=== PATIENT | female | born 1955 | race African-American/Black ===

== ENCOUNTER 2024-08-03 09:43 | Inpatient (IN) | payer OTHER ==
[~2024-08-03] VITALS: Ht 172.7 cm; Wt 100.0 kg
[~2024-08-03 09:43] MED LIST: CLOP75TA70 PO; DOXY100C4 PO; GABA-1250 PO; INSU300I5 SC; METF-929 PO; OXYC325T14 PO; PANT40TA57 PO; [UNRECOGNIZED DRUG - CODE] SC
--- NOTE | 2024-08-03 10:07 | ED.PDOC ---
Back pain HPI Chief Complaint: Lower Extremity Comments bilateral feet pain for 6 months. 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 Family History Family History: Reviewed,noncontributory to illness, No family hx of Cancer, No family hx of DM, No family hx of Heart jocelyn, No family hx of HTN, No family hx ofKidney jocelyn, No family hx of Liver jocelyn, No family hx of Lung jocelyn, No family hx of Stroke Social History Smoker: Non-Smoker Alcohol: Denies ETOH Use Drugs: Denies Drug Use Constitutional: denies: chills, diaphoresis, fatigue, fever, malaise, sweats, weakness, others EENTM: denies: blurred vision, double vision, ear bleeding, ear discharge, ear drainage, ear pain, ear ringing, eye pain, eye redness, hearing loss, mouth pain, mouth swelling, nasal discharge, nose bleeding, nose congestion, nose pain, photophobia, tearing, throat pain, throat swelling, voice changes, others Respiratory: denies: cough, hemoptysis, orthopnea, SOB at rest, shortness of breath, SOB with excertion, stridor, wheezing, others Cardiovascular: denies: chest pain, dizzy spells, diaphoresis, Dyspnea on exertion, edema, irregular heart beat, left arm pain, lightheadedness, palpitations, PND, syncope, others Gastrointestinal: denies: abdomen distended, abdominal pain, blood streaked bowels, constipated, diarrhea, dysphagia, difficulty swallowing, hematemesis, melena, nausea, poor appetite, poor fluid intake, rectal bleeding, rectal pain, vomiting, others Genitourinary: denies: abnormal vagina bleeding, burning, dyspareunia, dysuria, flank pain, frequency, hematuria, incontinence, pain, , vagina discharge, urgency, others Neurological: denies: dizziness, fainting, headache, left sided numbness, left sided weakness, numbness, paresthesia, pre-existing deficit, right sided numbness, right sided weakness, seizure, speech problems, tingling, tremors, weakness, others Musculoskeletal: reports: joint pain; denies: back pain, gout, joint swelling, muscle pain, muscle stiffness, neck pain, others Integumetry: reports: others (left 2nd and 4th toes dry gangrene. right 1,2 toes dry gangrene); denies: bruises, change in color, change in hair/nails, dryness, laceration, lesions, lumps, rash, wounds Allergic/Immunocompromised: denies: Difficulty Healing, Frequent Infections, Hives, Itching, others Hematologic/Lymphatic: denies: anemia, blood clots, easy bleeding, easy bruising, swollen glands, others Endocrine: denies: excessive hunger, excessive sweating, excessive thirst, excessive urination, flushing, intolerance to cold, intolerance to heat, unexplained weight gain, unexplained weight loss, others Psychiatric: denies: anxiety, bipolar disorder, depression, hopeless, panic disorder, schizophrenia, sleepless, suicidal, others All Other Systems: Reviewed and Negative Physical Exam General Appearance: No Apparent Distress, Normal HEENT: Normal ENT Inspection, Pharynx Normal, TMs Normal Neck: Full Range of Motion, Non-Tender, Normal, Normal Inspection Respiratory: Chest Non-Tender, Lungs Clear, No Accessory Muscle Use, No Respiratory Distress, Normal Breath Sounds Cardiovascular: No Edema, No JVD, No Murmur, No Gallop, Normal Peripheral Pulses, Regular Rate/Rhythm, Other (weaknly palpable dp pulses bilaterally) Breast Exam: Deferred Gastrointestinal: No Organomegaly, Non Tender, No Pulsatile Mass, Normal Bowel Sounds, Soft Genitalia: Deferred Pelvic: Deferred Rectal: Deferred Extremities: No calf tenderness, Normal range of motion, No pedal edema, Tender, Other (left 2nd and 4th toe, right 1st, 2nd toes with dry gangrene) Musculoskeletal : Apperance: Normal Neurologic: 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 Was a procedure done?: No Back Pain Differential Dx Differential Diagnosis: Musculoskeletal Pain, Strain, Other (PAD, dry gangrene) X-Ray, Labs, Meds, VS Vital Signs Date Time Temp Pulse Resp B/P (MAP) Pulse Ox O2 Delivery O2 Flow Rate FiO2 08/03/24 09:43 98.6 114 16 146/78 (100) 100 98.6 Lab Test 08/03/24 11:27 08/03/24 09:52 Range/Units White Blood Count 13.3 H 4.4-10.8 10^3/uL Red Blood Count 4.05 4.0-5.20 10^6/uL Hemoglobin 10.4 L 12.2-16.2 g/dL Hematocrit 32.0 L 36.0-46.0 % Mean Corpuscular Volume 79.0 L 80.0-100.0 fL Mean Corpuscular Hemoglobin 25.8 L 28.0-32.0 pg Mean Corpuscular Hemoglobin Concent 32.6 32.0-36.0 g/dL Red Cell Distribution Width 14.4 H 11.8-14.3 % Platelet Count 676 H 140-450 10^3/uL Mean Platelet Volume 7.4 6.9-10.8 fL Neutrophils (%) (Auto) 87.0 H 37.0-80.0 % Lymphocytes (%) (Auto) 5.4 L 10.0-50.0 % Monocytes (%) (Auto) 6.8 0.0-12.0 % Eosinophils (%) (Auto) 0.4 0.0-7.0 % Basophils (%) (Auto) 0.4 0.0-2.0 % Neutrophils # (Auto) 11.6 H 1.6-8.6 10 ^3/uL Lymphocytes # (Auto) 0.7 0.4-5.4 10 ^3/uL Monocytes # (Auto) 0.9 0-1.3 10 ^3/uL Eosinophils # (Auto) 0.1 0-0.8 10 ^3/uL Basophils # (Auto) 0.1 0-0.2 10 ^3/uL Nucleated Red Blood Cells 0.0 % Sodium Level 137 136-145 mmol/L Potassium Level 3.2 L 3.5-5.1 mmol/L Chloride Level 101 98-107 mmol/L Carbon Dioxide Level 22 20-31 mmol/L Anion Gap 14 5-15 Blood Urea Nitrogen 8 L 9-23 mg/dL Creatinine 0.73 0.550-1.02 mg/dL Glomerular Filtration Rate Calc 89 >90 mL/min BUN/Creatinine Ratio 11.0 10.0-20.0 Serum Glucose 148 H 74-106 mg/dL Calcium Level 10.2 8.7-10.4 mg/dL POC Glucose 145 H 70-106 mg/dl Current Medications Medications (Trade) Dose Ordered Sig/Linda Route Start Time Stop Time Status Last Admin Acetaminophen/ Hydrocodone Bitart (Mcdonald 5/325MG Tab) 1 tab ONCE ONCE PO 08/03/24 10:00 08/03/24 10:03 DC 08/03/24 10:23 Time of 1ST Reevaluation: 13:25 Reevaluation 1ST: Improved Patient Education/Counseling: Diagnosis, Treatment, Prognosis, Need For Follow Up Family Education/Counseling: No Family Present Departure 1 Departure Time of Disposition: 13:26 Impression: Primary Impression: Gangrene Additional Impression: PAD (peripheral artery disease) Disposition: ADMITTED INPATIENT Admit to: Tele Condition: Stable Discharged With: Self Critical Care Note Critical Care Time?: Yes (45 min-critical care time only) Critical care comment: Due to concerns for patients condition deteriorating, the care required my highest level of attention and readiness to intervene. I assessed the patient, reviewed the medical records, ordered the appropriate tests and treatments, then reassessed for results and responsiveness. I communicated with medical personnel and consultants and formulated a plan of care. Total critical care time excludes any procedures Stability Stability form required: JOSEFINA Middleton MD Aug 03, 2024 10:07
[2024-08-03] MEDS: HYDROcodone-ACET 5/325MG TAB PO ONE (10:23)
--- NOTE | 2024-08-03 11:00 | DVH ---
CLINICAL INDICATION: pad TECHNIQUE: XY R FOOT 3 VIEW XRAY, XY L FOOT 3 VIEW XRAY Comparison: None FINDINGS/IMPRESSION: : There is no evidence of acute fracture or dislocation. Soft tissues are unremarkable.
[2024-08-03 11:36] LABS: Hemoglobin 10.4 g/dL (12.2-16.2); Lymphocytes # (auto) 0.7 10 ^3/uL (0.4-5.4); Neutrophils # (auto) 11.6 10 ^3/uL (1.6-8.6); White Blood Cell 13.3 10^3/uL (4.4-10.8)
[2024-08-03 11:37] LABS: Basophils # (auto) 0.1 10 ^3/uL (0-0.2); Basophils % (auto) 0.4 % (0.0-2.0); Eosinophils # (auto) 0.1 10 ^3/uL (0-0.8); Eosinophils % (auto) 0.4 % (0.0-7.0); Lymphocytes % (auto) 5.4 % (10.0-50.0); Mean Corpuscular Hemoglobin 25.8 pg (28.0-32.0); Mean Corpuscular Hgb Conc. 32.6 g/dL (32.0-36.0); Monocytes # (auto) 0.9 10 ^3/uL (0-1.3); Monocytes % (auto) 6.8 % (0.0-12.0); Platelet Count (auto) 676 10^3/uL (140-450); Red Blood Cells 4.05 10^6/uL (4.0-5.20); Red Cell Distribution Width 14.4 % (11.8-14.3)
--- NOTE | 2024-08-03 11:50 | DVH ---
Bilateral Lower Extremity Arterial Duplex Clinical History: pad Comparison: None Technique: Duplex Doppler evaluation including color Doppler and spectral/pulsed waveform analysis of the lower extremity arteries was performed. Findings: RIGHT: Peak systolic velocities are as follows: CODING SUPPORT SPECIALIST 163 cm/s Deep femoral 151 cm/s SFA proximal 0 cm/s SFA mid-portion 0 cm/s SFA distal 0 cm/s Popliteal 30 cm/s Posterior tibial 30 cm/s Anterior tibial 0 cm/s Peroneal nv cm/s Dorsalis pedis 0 cm/s The waveforms are monophasic with diastolic flow. LEFT: Peak systolic velocities are as follows: CODING SUPPORT SPECIALIST 160 cm/s Deep femoral 112 cm/s SFA proximal 119 cm/s SFA mid-portion 91 cm/s SFA distal 0 cm/s Popliteal 24 cm/s Posterior tibial 0 cm/s Anterior tibial 28 cm/s Peroneal nv cm/s Dorsalis pedis 28 cm/s The waveforms are monophasic with diastolic flow. IMPRESSION: 20-49% stenosis of bilateral common femoral arteries and right deep femoral artery based on peak syst olic velocity criteria. Nonvisualization of flow in the right superficial femoral artery, posterior tibial artery and dorsali s pedis. Nonvisualization of flow in the left distal superficial femoral artery. Bilateral monophasic waveforms suggestive of underlying peripheral arterial disease. REFERENCE VALUES, [facility] ([facility]) vascular Imaging Lab Criteria: Peak systolic velocity ranges (in cm/sec) are as follows: <150 cm/s - <20 % stenosis 150-200 cm/s - 20-49% stenosis 200-300 cm/s - 50-75% stenosis >300 cm/s -> 75% stenosis
[2024-08-03 11:52] LABS: Anion Gap 14 (5-15); Carbon Dioxide 22 mmol/L (20-31); Chloride 101 mmol/L (98-107); Sodium 137 mmol/L (136-145)
[2024-08-03 11:53] LABS: Calcium 10.2 mg/dL (8.7-10.4)
[2024-08-03 12:02] LABS: Blood Urea Nitrogen 8 mg/dL (9-23); Glucose 148 mg/dL (74-106); Potassium 3.2 mmol/L (3.5-5.1)
--- NOTE | 2024-08-03 14:00 | DVHCONRES ---
Date Seen: Aug 03, 2024 Resident Creating Document: HOWIE SOARES Jr., MD Referring Physician Michela Reason for Consultation Severe rest pain bilaterally History of Present Illness 69-year-old female who is well known to me. She has diabetes, hypertension, gastroesophageal reflux disease, and severe peripheral vascular disease. She has had multiple endovascular procedures of bilateral lower extremities most recently last week for an attempted we cannulization of a right occluded SFA stent. Unfortunately this was unsuccessful. She also has a left SFA stent which is occluded. She is presenting with severe rest pain and dry gangrene of the 1st and 2nd toe on the right side and ischemic changes of her distal toes in the left side. She has dependent edema which she has developed because of rest pain. 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 With the plan on performing a bypass of the right leg from a fem to above knee popliteal bypass on Thursday. Patient will need cardiac clearance prior to procedure for Thursday. No current fevers or chills. Past Medical History Hypertension, diabetes, gastroesophageal reflux disease, severe peripheral vascular disease, Past Surgical History Multiple endovascular procedures of bilateral lower extremities including SFA angioplasty and stenting bilaterally. Also has had a finger amputation as well. Social History Former smoker Allergies: Coded Allergies: NO KNOWN ALLERGIES (Unverified , 08/03/24) Current Medications Please see medical reconciliation Review of Systems All systems reviewed otherwise negative other than what is in the HPI which was positive. Vital Signs Vital Signs Date Time Temp Pulse Resp B/P (MAP) Pulse Ox O2 Delivery O2 Flow Rate FiO2 08/03/24 09:43 98.6 114 16 146/78 (100) 100 98.6 Physical Exam Head eyes ears nose and throat exam eyes are nonicteric conjunctiva is pink neck was supple no JVD no lymphadenopathy no carotid bruits lungs are clear to auscultation heart was regular rate and rhythm abdomen is soft nontender with no pulsatile abdominal masses or bruits lower extremities she has palpable femoral pulses bilaterally nonpalpable pedal pulses bilaterally she has dry gangrene of the 1st and 2nd toe on the right side and ischemic changes to the distal toes on the left side. Neurologically she has a history of neuropathy and decreased sensation of her feet. She has 1 to 2+ pitting edema of both lower extremities. Labs/Diagnostic Data Labs Test 08/03/24 11:27 08/03/24 09:52 Range/Units White Blood Count 13.3 H 4.4-10.8 10^3/uL Red Blood Count 4.05 4.0-5.20 10^6/uL Hemoglobin 10.4 L 12.2-16.2 g/dL Hematocrit 32.0 L 36.0-46.0 % Mean Corpuscular Volume 79.0 L 80.0-100.0 fL Mean Corpuscular Hemoglobin 25.8 L 28.0-32.0 pg Mean Corpuscular Hemoglobin Concent 32.6 32.0-36.0 g/dL Red Cell Distribution Width 14.4 H 11.8-14.3 % Platelet Count 676 H 140-450 10^3/uL Mean Platelet Volume 7.4 6.9-10.8 fL Neutrophils (%) (Auto) 87.0 H 37.0-80.0 % Lymphocytes (%) (Auto) 5.4 L 10.0-50.0 % Monocytes (%) (Auto) 6.8 0.0-12.0 % Eosinophils (%) (Auto) 0.4 0.0-7.0 % Basophils (%) (Auto) 0.4 0.0-2.0 % Neutrophils # (Auto) 11.6 H 1.6-8.6 10 ^3/uL Lymphocytes # (Auto) 0.7 0.4-5.4 10 ^3/uL Monocytes # (Auto) 0.9 0-1.3 10 ^3/uL Eosinophils # (Auto) 0.1 0-0.8 10 ^3/uL Basophils # (Auto) 0.1 0-0.2 10 ^3/uL Nucleated Red Blood Cells 0.0 % Sodium Level 137 136-145 mmol/L Potassium Level 3.2 L 3.5-5.1 mmol/L Chloride Level 101 98-107 mmol/L Carbon Dioxide Level 22 20-31 mmol/L Anion Gap 14 5-15 Blood Urea Nitrogen 8 L 9-23 mg/dL Creatinine 0.73 0.550-1.02 mg/dL Glomerular Filtration Rate Calc 89 >90 mL/min BUN/Creatinine Ratio 11.0 10.0-20.0 Serum Glucose 148 H 74-106 mg/dL Calcium Level 10.2 8.7-10.4 mg/dL POC Glucose 145 H 70-106 mg/dl Bilateral Lower Extremity Arterial Duplex Clinical History: pad Comparison: None Technique: Duplex Doppler evaluation including color Doppler and spectral/pulsed waveform analysis of the lower extremity arteries was performed. Findings: RIGHT: Peak systolic velocities are as follows: TRAFFIC SIGNAL MECHANIC 163 cm/s Deep femoral 151 cm/s SFA proximal 0 cm/s SFA mid-portion 0 cm/s SFA distal 0 cm/s Popliteal 30 cm/s Posterior tibial 30 cm/s Anterior tibial 0 cm/s Peroneal nv cm/s Dorsalis pedis 0 cm/s The waveforms are monophasic with diastolic flow. LEFT: Peak systolic velocities are as follows: TRAFFIC SIGNAL MECHANIC 160 cm/s Deep femoral 112 cm/s SFA proximal 119 cm/s SFA mid-portion 91 cm/s SFA distal 0 cm/s Popliteal 24 cm/s Posterior tibial 0 cm/s Anterior tibial 28 cm/s Peroneal nv cm/s Dorsalis pedis 28 cm/s The waveforms are monophasic with diastolic flow. IMPRESSION: 20-49% stenosis of bilateral common femoral arteries and right deep femoral artery based on peak systolic velocity criteria. Nonvisualization of flow in the right superficial femoral artery, posterior tibial artery and dorsalis pedis. Nonvisualization of flow in the left distal superficial femoral artery. Bilateral monophasic waveforms suggestive of underlying peripheral arterial disease. Assessment 69-year-old female with severe peripheral vascular disease with bilateral SFA occlusions. Patient we will be prepared for record label internship tomorrow for left lower extremity arteriogram with possible endovascular revascularization including angioplasty and stenting and atherectomy. Patient will need medical clearance for upcoming surgery which will be performed on Thursday. She will need a right femoral to above knee possible below-knee bypass. Also we will need a toe amputations once her revascularization procedures were performed. Patient is aware of the plan and is willing to proceed. Plan discussed with: Patient HOWIE SOARES Jr., MD Aug 03, 2024 13:59
[2024-08-03] MEDS ORDERED: ACETAMINOPHEN 325 MG TAB PO PRN (15:00)
[2024-08-03] MEDS ORDERED: NITROGLYCERIN 0.4 MG SL TAB SL PRN (15:00)
[2024-08-03] MEDS ORDERED: MORPHINE SULFATE INJ 2 MG/ml SYRG IV PRN (15:00)
--- NOTE | 2024-08-03 15:10 | DVHHP2 ---
History of Present Illness Reason for Visit: Patient was sent by vascular surgery and Dr. Randolph History of Present Illness 69-year-old female with a known history of diabetes mellitus type 2, hy pertension, dyslipidemia, GERD, severe peripheral vascular disease status post stent placement bilateral lower extremity in the past presented to the hospital with a bilateral rest pain worsening for last few days to weeks. Patient was seen by Dr. Randolph in his office and was sent to ER for admission for possible surgical intervention patient is complaining of bilateral lower extremity pain. Denies any fevers chills. Denies any chest pain shortness of breath. Cardiovascular: HTN, hyperipidemia Endocrine: Diabetes Past Surgical History: Other (Bilateral lower extremity stent placement.) Family History: None Smoke: No ALCOHOL: none Review of Systems Review of Systems Twelve review of system are negative besides mentioned above. Allergies: Coded Allergies: NO KNOWN ALLERGIES (Unverified , 08/03/24) Medications Current Medications Medications Dose Ordered Sig/Linda Route Start Time Stop Time Status Last Admin Dose Admin Sodium Chloride 1,000 ml @ 120 mls/hr Q8H20M IV 08/03/24 15:00 UNV Acetaminophen/ Hydrocodone Bitart 1 tab Q4HP PRN PO 08/03/24 15:00 UNV Ondansetron HCl 4 mg Q4HP PRN IV 08/03/24 15:00 UNV Docusate Sodium 100 mg BIDPRN PRN PO 08/03/24 15:00 UNV Acetaminophen 650 mg Q6HP PRN PO 08/03/24 15:00 UNV Morphine Sulfate 2 mg Q4HPRN PRN IV 08/03/24 15:00 UNV Nitroglycerin 0.4 mg Q5MINP PRN SL 08/03/24 15:00 UNV Morphine Sulfate 2 mg Q30M PRN IV 08/03/24 15:00 UNV Exam Vital Signs Vital Signs Date Time Temp Pulse Resp B/P (MAP) Pulse Ox O2 Delivery O2 Flow Rate FiO2 08/03/24 09:43 98.6 114 16 146/78 (100) 100 98.6 Exam HEENT pupils are reactive Neck is supple CV is S1-S2 regular rate and rhythm Respiratory are clear GI positive bowel sound Extremity no edema [employer] no motor deficit Labs/Xrays Labs Test 08/03/24 11:27 4/23/25 09:52 Range/Units White Blood Count 13.3 H 4.4-10.8 10^3/uL Red Blood Count 4.05 4.0-5.20 10^6/uL Hemoglobin 10.4 L 12.2-16.2 g/dL Hematocrit 32.0 L 36.0-46.0 % Mean Corpuscular Volume 79.0 L 80.0-100.0 fL Mean Corpuscular Hemoglobin 25.8 L 28.0-32.0 pg Mean Corpuscular Hemoglobin Concent 32.6 32.0-36.0 g/dL Red Cell Distribution Width 14.4 H 11.8-14.3 % Platelet Count 676 H 140-450 10^3/uL Mean Platelet Volume 7.4 6.9-10.8 fL Neutrophils (%) (Auto) 87.0 H 37.0-80.0 % Lymphocytes (%) (Auto) 5.4 L 10.0-50.0 % Monocytes (%) (Auto) 6.8 0.0-12.0 % Eosinophils (%) (Auto) 0.4 0.0-7.0 % Basophils (%) (Auto) 0.4 0.0-2.0 % Neutrophils # (Auto) 11.6 H 1.6-8.6 10 ^3/uL Lymphocytes # (Auto) 0.7 0.4-5.4 10 ^3/uL Monocytes # (Auto) 0.9 0-1.3 10 ^3/uL Eosinophils # (Auto) 0.1 0-0.8 10 ^3/uL Basophils # (Auto) 0.1 0-0.2 10 ^3/uL Nucleated Red Blood Cells 0.0 % Sodium Level 137 136-145 mmol/L Potassium Level 3.2 L 3.5-5.1 mmol/L Chloride Level 101 98-107 mmol/L Carbon Dioxide Level 22 20-31 mmol/L Anion Gap 14 5-15 Blood Urea Nitrogen 8 L 9-23 mg/dL Creatinine 0.73 0.550-1.02 mg/dL Glomerular Filtration Rate Calc 89 >90 mL/min BUN/Creatinine Ratio 11.0 10.0-20.0 Serum Glucose 148 H 74-106 mg/dL Calcium Level 10.2 8.7-10.4 mg/dL POC Glucose 145 H 70-106 mg/dl Assessment/Plan Assessment/Plan 69-year-old female with a known history of diabetes mellitus type 2, hypertension, dyslipidemia, GERD, severe peripheral vascular disease status post bilateral stent placement in the lower legs. Presented to the hospital as she was sent by vascular surgery. Patient was found to have 1. Severe peripheral vascular disease of the bilateral lower extremity status post SFA stents both legs, need revascularization surgery with a intervention angioplasty /stenting/atherectomy. 2. Bilateral resting feet pain secondary to severe peripheral vascular disease 3. Diabetes mellitus type 2 4. Hypertension 5. Dyslipidemia 6. GERD -admit to telemetry, we will get 2D echo and cardiac clearance for right lower extremity bypass surgery, patient is going for left lower extremity angiogram tomorrow for intervention including atherectomy/angioplasty/stenting. Plan discussed with: Patient My Orders Orders - YUNIER JON MD Procedure Category Date Status Time Admit ADMIT 08/03/24 Transmitted 14:59 Code Status CODE 08/03/24 Transmitted 14:59 2 Gm Sodium Diet DIET 08/03/24 Transmitted Dinner Sodium Chloride 0.9% PHA 08/03/24 Logged 15:00 Hydrocodone-Acet PHA 08/03/24 Logged 5/325mg Tab ([place] 15:00 Ondansetron Hcl PHA 08/03/24 Logged (Zofran) 15:00 Docusate Sodium PHA 08/03/24 Logged Capsule (Colace 15:00 Complete Blood Count LAB 08/04/24 Verified 04:00 Comprehensive LAB 08/04/24 Verified Metabolic Panel 04:00 Cardiac DIET 08/03/24 Transmitted Diet-2gna,Lofat,Lochol Dinner Condition: Fair KEN 08/03/24 In Process 14:59 Acetaminophen Tablet PHA 08/03/24 Logged (Tylenol Tablet) 15:00 Morphine Sulfate PHA 08/03/24 Logged Injection 15:00 Nitroglycerin PHA 08/03/24 Logged Sublingual (Ntrostat 15:00 Morphine Sulfate PHA 08/03/24 Logged Injection 15:00 Stat Ekg For Chest KEN 08/03/24 In Process Pain 14:59 Notify Of Changes KEN 08/03/24 In Process From Base 14:59 Building Maintenance Supervisor For [facility] 08/03/24 In Process 24 Hours 14:59 Emergency Dysrhythmia KEN 08/03/24 In Process Protocol 14:59 Rhythm Strips Once KEN 08/03/24 In Process Every Shift 14:59 Oxygen By Nasal RT 08/03/24 Transmitted Cannula 14:59 Date of Service: Aug 03, 2024 Billing Provider: YUNIER JON MD Common Visit Codes: NOT BILLABLE YUNIER JON MD Aug 03, 2024 15:10
[2024-08-03] MEDS: POTASSIUM CHL 20 Meq TABLET PO ONE (15:33)
[2024-08-03 15:50] LABS: INR 1.12 (0.9-1.15); Partial Thromboplastin Time 44.7 SEC (24.5-34.5); Prothrombin Time 11.7 sec (9.3-11.8)
[2024-08-03] MEDS: HYDROcodone-ACET 5/325MG TAB PO PRN (15:51)
--- NOTE | 2024-08-03 15:55 | DVH ---
EXAM: XY CHEST XRAY 1 VIEW REASON FOR EXAM: PREOP TECHNIQUE: 1 view of the chest COMPARISON: None FINDINGS: LUNGS: No pleural effusion, consolidation, or pneumothorax MEDIASTINUM: Unremarkable BONES: No acute osseous abnormality . Degenerative changes of the left glenohumeral joint. OTHER: None IMPRESSION: 1. No radiographic evidence of an acute cardiopulmonary process.
[2024-08-03] MEDS: SODIUM CHLORIDE 0.9% 1,000 ML IV SCH (16:32)
[2024-08-03] MEDS: MORPHINE SULFATE INJ 2 MG/ml SYRG IV PRN (18:48)
[2024-08-03] MEDS: ONDANSETRON HCL 4 MG/2 ML VIAL IV PRN (18:49)
[2024-08-04] VITALS (12 sets, daily range): BP systolic 124–183; BP diastolic 61–85; PULSE 104–122; RESP 15–19; TEMP 98–98.9; O2SAT 95–100
[2024-08-04 05:59] LABS: Basophils # (auto) 0.1 10 ^3/uL (0-0.2); Eosinophils # (auto) 0.1 10 ^3/uL (0-0.8); Eosinophils % (auto) 0.8 % (0.0-7.0); White Blood Cell 11.5 10^3/uL (4.4-10.8)
[2024-08-04 06:03] LABS: Basophils % (auto) 0.6 % (0.0-2.0); Hematocrit 28.6 % (36.0-46.0); Hemoglobin 9.3 g/dL (12.2-16.2); Lymphocytes # (auto) 0.6 10 ^3/uL (0.4-5.4); Lymphocytes % (auto) 5.5 % (10.0-50.0); Mean Corpuscular Hemoglobin 25.7 pg (28.0-32.0); Mean Corpuscular Hgb Conc. 32.5 g/dL (32.0-36.0); Mean Corpuscular Volume 79.2 fL (80.0-100.0); Monocytes % (auto) 8.8 % (0.0-12.0); Neutrophils # (auto) 9.7 10 ^3/uL (1.6-8.6); Neutrophils % (auto) 84.3 % (37.0-80.0); Nucleated Red Blood Cells % 0.1 %; Platelet Count (auto) 690 10^3/uL (140-450); Red Blood Cells 3.61 10^6/uL (4.0-5.20); Red Cell Distribution Width 14.4 % (11.8-14.3)
[2024-08-04 06:19] LABS: Alanine Aminotransferase 10 U/L (7-40); Alkaline Phosphatase 115 U/L (46-116); Anion Gap 10 (5-15); BUN/Creatinine Ratio 12.5 (10.0-20.0); Calcium 9.4 mg/dL (8.7-10.4); Carbon Dioxide 26 mmol/L (20-31); Chloride 103 mmol/L (98-107); Potassium 3.5 mmol/L (3.5-5.1); Sodium 139 mmol/L (136-145); Total Protein 7.7 g/dL (5.7-8.2)
[2024-08-04 06:20] LABS: Albumin 3.9 g/dL (3.2-4.8); Aspartate Aminotransferase 14 U/L (13-40)
[2024-08-04 06:27] LABS: Bilirubin, Total 0.3 mg/dL (0.2-1.0); Blood Urea Nitrogen 9 mg/dL (9-23); Glucose 174 mg/dL (74-106)
[2024-08-04] MEDS: HEPARIN IN NS 1000Units/500mL 1,500 ML ONE ×2 (06:47→09:13)
[2024-08-04] MEDS: IODIXANOL 320MG/ML 100ML BTL IV ONE ×2 (06:47→09:13)
[2024-08-04] MEDS: ANGIOMAX 250 MG VIAL IV ONE (06:59)
[2024-08-04] MEDS: fentaNYL CITRATE 100 MCG/2 ML VL ONE ×2 (07:00→07:46)
[2024-08-04] MEDS: LIDOCAINE 2%HCL (LOCAL ANESTH.) INJ 20ML MDV ONE (07:01)
[2024-08-04] MEDS: MIDAZOLAM HCL 2MG/2ML 2ml VIAL (1mg/ml) ONE ×2 (07:01→07:47)
[2024-08-04] MEDS: ONDANSETRON HCL 4 MG/2 ML VIAL ONE (07:22)
[2024-08-04] MEDS: HEPARIN SODIUM (PORCINE) 5000 UNITS/ML 1ML VIAL ONE (07:36)
[2024-08-04] MEDS: hydrALAZINE HCL 20 MG/ML VL ONE (07:38)
--- NOTE | 2024-08-04 08:16 | DVHOP2 ---
Operative Report - 2 Report Details Date: 08/04/24 Preop Diagnosis: Left occluded SFA stent Postop Diagnosis: Same Surgeon: Abe Randolph MD Anesthesiologist: Conscious sedation Anesthesia: Local Consent: The patient was informed of the risks and benefits of the procedure. These include but are not limited to complications of anesthesia, postoperative infection, incomplete relief of symptoms, recurrence of symptoms, damage to blood vessels, nerves and tendons, deep venous thrombosis, pulmonary embolism and possible need for repeat surgery in the future. Name of Procedure Performed Left lower extremity arteriogram, left SFA angioplasty with drug-eluting balloon Procedure Details Procedure Details: Patient was identified in the preop hold area is being Mrs. Mancera at this point in time she was consented and preopped by myself she was brought back to the prestressed concrete laborer placed in the prestressed concrete laborer table in supine position after adequate induction of anesthesia antibiotics and time-out the right and left groin was prepped and draped in normal surgical fashion the right common femoral artery was then cannulated with after 1% lidocaine was injected. A 4 Tristanian micropuncture needle was used for cannulation is exchanged out for a a 6 Tristanian sheath at this point in time a arteriogram of the right leg was demonstrated a widely patent common femoral artery occluded SFA and widely patent profunda. The wire and catheter were manipulated up into the aorta into the left common iliac down into the SFA on the left side. A 45 cm 6 Tristanian destination sheath was then placed in the proximal SFA. A lower extremity arteriogram demonstrated a SFA occlusion at the distal portion of the SFA with an occluded stent. The below the stent the artery was patent the popliteal artery was patent there was severe disease of the tibial vessels with main runoff being the tibioperoneal trunk. At this point in time 3000 units of heparin was given using a quick cross catheter and advantage wire the SFA stent occlusion was traversed the catheter was positioned in the popliteal artery and confirmed angiogram demonstrated intraluminal access. At this point in time a 5 by 150 drug-eluting balloon was then used for angioplasty. Completion arteriogram demonstrated widely patent stent with significantly improved flow down through the stent down into the below-knee popliteal artery. Wires and catheters were removed. The sheath was removed a 6 Tristanian Angio-Seal was deployed in the right common femoral artery. Hemostasis was obtained. The patient tolerated the procedure well. Patient was taken to the PACU in a stable condition. Condition Good Disposition pacu ABE RANDOLPH Jr., MD Aug 04, 2024 08:16
[2024-08-04] MEDS: CLOPIDOGREL BISULFATE 75 MG TAB ONE ×2 (08:19→08:20)
--- NOTE | 2024-08-04 13:17 | DVHSR ---
APPROVED REPORT EXAM: LIMITED Two-dimensional and M-mode echocardiogram with Doppler and color Doppler. Blood Pressure: 155/75 mmHg INDICATION Pre-Op RISK FACTORS Obesity: Height: 5'8, Weight: 188 DIMENSIONS LVDd (3.8-5.7cm)LA (2D)4.2 (1.9-4.0cm)Aortic Root3.1 (2.0-3.7cm) LVDs (2.5-4.0cm)LA (MM) (1.9-4.0cm)Aortic Cusp Exc1.4 (1.5-2.0cm) EF (%) 60.0 (55-70%)Rt. Atrium3.2 (1.9-4.0cm)Asc. Aorta cm IVSd (0.7-1.1cm)RV (D)2.9 (1.8-2.4cm) Mitral Valve MitralMitral Stenosis E wavem/sMV Mean GR.6mmHg A wavem/sMV Peak GR.16mmHg E/A ratio0.02D MVAcm2 Aortic Valve Aortic ValveAortic Stenosis V1m/Casey Mean GR.7mmHg V21.76m/Casey Peak GR.13mmHg LVOT Diameter2.3 (1.8-2.4cm)Doppler AVAcm2 Other Information Quality : Technically LimitedRhythm : Technically limited study due to body habitus.patient position. Conclusion LVEF normal at 60-65% RV size and function grossly normal Mitral vavle not well visualized, appears leaflets thickened with mild to moderate mitral stenosis by gradient. Posterior Mitral annular calcification Aortic valve not well visualized, no significant stenosis by gradient
--- NOTE | 2024-08-04 14:52 | DVHINCON2 ---
DATE OF CONSULTATION: 08/04/2024 REFERRING PHYSICIAN: Edwar Abernathy MD CONSULTING PHYSICIAN: Sam Hernández MD HISTORY OF PRESENT ILLNESS: The patient is a 69-year-old female with history of hypertension, peripheral vascular disease, status post angioplasty in the past, now being evaluated for possible lower extremity bypass and possible toe amputation as well as preop cardiac risk assessment. The patient denies any prior history of heart disease known to her. Denies any chest pain or shortness of breath on ambulation. Denies any orthopnea, paroxysmal nocturnal dyspnea, or leg swelling. PAST MEDICAL HISTORY: * Hypertension. * Peripheral vascular disease. * Dyslipidemia. MEDICATIONS: Per med rec. ALLERGIES: No known drug allergies. PHYSICAL EXAMINATION: GENERAL: Alert and awake, in no form of cardiopulmonary distress. VITAL SIGNS: Blood pressure 167/72, pulse 102 per minute, saturation 96%. HEENT: No carotid bruits. No JVD. CHEST: Bilateral air entry. Few rhonchi. CARDIOVASCULAR: Submucosal and palpable. Normal S1, S2. EXTREMITIES: Notable for lower extremity chronic skin change and gangrenous change of the right big toe. ASSESSMENT AND PLAN: A 69-year-old female with history of hypertension, dyslipidemia, peripheral vascular disease status post prior angioplasties, now being evaluated for lower extremity bypass surgery. The patient denies prior history of heart disease. She denies any active cardiac symptoms. Echo shows preserved LV systolic function. Calcified mitral valve is atrial stenosed. Given these findings, there is no indication for further preop cardiac workup. The patient may proceed with planned surgery is an intermediate risk. Thank you for allowing me to participate in the care of this patient. MD SHALONDA Howell/LEESA/ALONDRA TID: [id number] RECEIPT: [id number]
--- NOTE | 2024-08-04 15:50 | DVHPN2 ---
Subjective Overnight events noted. Patient underwent left lower extremity angiogram status post atherectomy and angioplasty. 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 Medications Current Medications Medications Dose Ordered Sig/Linda Route Start Time Stop Time Status Last Admin Dose Admin Sodium Chloride 1,000 ml @ 120 mls/hr Q8H20M IV 08/03/24 15:00 08/04/24 10:29 120 MLS/HR Acetaminophen/ Hydrocodone Bitart 1 tab Q4HP PRN PO 08/03/24 15:00 08/04/24 13:57 1 TAB Ondansetron HCl 4 mg Q4HP PRN IV 08/03/24 15:00 08/03/24 18:49 4 MG Docusate Sodium 100 mg BIDPRN PRN PO 08/03/24 15:00 Acetaminophen 650 mg Q6HP PRN PO 08/03/24 15:00 Morphine Sulfate 2 mg Q4HPRN PRN IV 08/03/24 15:00 08/04/24 05:40 2 MG Nitroglycerin 0.4 mg Q5MINP PRN SL 08/03/24 15:00 Morphine Sulfate 2 mg Q30M PRN IV 08/03/24 15:00 Clopidogrel Bisulfate 75 mg DAILY PO 08/05/24 10:00 Laboratory Results Laboratory Tests 08/04/24 05:14 Chemistry Test 08/04/24 05:14 Albumin 3.9 g/dL (3.2-4.8) Calcium Level 9.4 mg/dL (8.7-10.4) Total Protein 7.7 g/dL (5.7-8.2) LFT Test 08/04/24 05:14 Alanine Aminotransferase (ALT) 10 U/L (7-40) Alkaline Phosphatase 115 U/L (46-116) Aspartate Amino Transferase (AST) 14 U/L (13-40) Total Bilirubin 0.3 mg/dL (0.2-1.0) Assessment/Plan Assessment/Plan 69-year-old female with a known history of diabetes mellitus type 2, hypertension, dyslipidemia, GERD, severe peripheral vascular disease status post bilateral stent placement in the lower legs. Presented to the hospital as she was sent by vascular surgery. Patient was found to have 1. Severe peripheral vascular disease of the bilateral lower extremity status post SFA stents both legs, need revascularization surgery with a intervention angioplasty /stenting/atherectomy. 2. Bilateral resting feet pain secondary to severe peripheral vascular disease 3. Diabetes mellitus type 2 4. Hypertension 5. Dyslipidemia 6. GERD -patient is status post left lower extremity angiogram with interventionncluding atherectomy/angioplasty/stenting. -right lower extremity bypass surgery on Thursday. Plan discussed with: Patient My Orders Orders - YUNIER JON MD Procedure Category Date Status Time Mrsa Screen SWEETIE 08/04/24 Uncollected 00:46 Mrsa Screen SWEETIE 08/04/24 In Process 00:40 * Wound Consult CONS 08/04/24 Transmitted Date of Service: Aug 04, 2024 Billing Provider: YUNIER JON MD Common Visit Codes: NOT BILLABLE YUNIER JON MD Aug 04, 2024 15:50
[2024-08-05] VITALS (9 sets, daily range): BP systolic 118–165; BP diastolic 56–90; PULSE 84–110; RESP 17–18; TEMP 98.8–99.6; O2SAT 95–99
[2024-08-05] MEDS: CLOPIDOGREL BISULFATE 75 MG TAB PO SCH (09:55)
--- NOTE | 2024-08-05 15:28 | DVHPN2 ---
Subjective Overnight events noted. Patient underwent left lower extremity angiogram status post atherectomy and angioplasty. Currently waiting for right fem popliteal bypass wishes going to be done on Thursday. 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 Medications Current Medications Medications Dose Ordered Sig/Linda Route Start Time Stop Time Status Last Admin Dose Admin Sodium Chloride 1,000 ml @ 120 mls/hr Q8H20M IV 08/03/24 15:00 08/05/24 09:55 120 MLS/HR Acetaminophen/ Hydrocodone Bitart 1 tab Q4HP PRN PO 08/03/24 15:00 08/05/24 09:37 1 TAB Ondansetron HCl 4 mg Q4HP PRN IV 08/03/24 15:00 08/03/24 18:49 4 MG Docusate Sodium 100 mg BIDPRN PRN PO 08/03/24 15:00 Acetaminophen 650 mg Q6HP PRN PO 08/03/24 15:00 Morphine Sulfate 2 mg Q4HPRN PRN IV 08/03/24 15:00 08/04/24 05:40 2 MG Nitroglycerin 0.4 mg Q5MINP PRN SL 08/03/24 15:00 Morphine Sulfate 2 mg Q30M PRN IV 08/03/24 15:00 Clopidogrel Bisulfate 75 mg DAILY PO 08/05/24 10:00 08/05/24 09:55 75 MG Laboratory Results Laboratory Tests 08/04/24 05:14 Microbiology Microbiology Date/Time Source Procedure Growth Status 08/04/24 00:40 Nose MRSA Screen - Final Complete Assessment/Plan Assessment/Plan 69-year-old female with a known history of diabetes mellitus type 2, hypertension, dyslipidemia, GERD, severe peripheral vascular disease status post bilateral stent placement in the lower legs. Presented to the hospital as she was sent by vascular surgery. Patient was found to have 1. Severe peripheral vascular disease of the bilateral lower extremity status post SFA stents both legs, need revascularization surgery with a intervention angioplasty /stenting/atherectomy. 2. Bilateral resting feet pain secondary to severe peripheral vascular disease 3. Diabetes mellitus type 2 4. Hypertension 5. Dyslipidemia 6. GERD -patient is status post left lower extremity angiogram with interventionncluding atherectomy/angioplasty/stenting. -right lower extremity bypass surgery on Thursday. Plan discussed with: Other My Orders Orders - YUNIER JON MD Procedure Category Date Status Time Consistent DIET 08/05/24 Transmitted [facility]Diabetes Breakfast Insert Midline ORDERS 08/05/24 Transmitted 09:37 Date of Service: Aug 05, 2024 Billing Provider: YUNIER JON MD Common Visit Codes: NOT BILLABLE YUNIER JON MD Aug 05, 2024 15:28
[2024-08-06] VITALS (9 sets, daily range): BP systolic 119–160; BP diastolic 56–71; PULSE 99–124; RESP 17–20; TEMP 98–99.3; O2SAT 95–100
--- NOTE | 2024-08-06 14:13 | DVHPN2 ---
Subjective Overnight events noted. Patient underwent left lower extremity angiogram status post atherectomy and angioplasty. Currently waiting for right fem popliteal bypass wishes going to be done on Thursday. 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 Medications Current Medications Medications Dose Ordered Sig/Linda Route Start Time Stop Time Status Last Admin Dose Admin Sodium Chloride 1,000 ml @ 120 mls/hr Q8H20M IV 08/03/24 15:00 08/06/24 09:36 120 MLS/HR Acetaminophen/ Hydrocodone Bitart 1 tab Q4HP PRN PO 08/03/24 15:00 08/06/24 13:30 1 TAB Ondansetron HCl 4 mg Q4HP PRN IV 08/03/24 15:00 08/03/24 18:49 4 MG Docusate Sodium 100 mg BIDPRN PRN PO 08/03/24 15:00 Acetaminophen 650 mg Q6HP PRN PO 08/03/24 15:00 Morphine Sulfate 2 mg Q4HPRN PRN IV 08/03/24 15:00 08/04/24 05:40 2 MG Nitroglycerin 0.4 mg Q5MINP PRN SL 08/03/24 15:00 Morphine Sulfate 2 mg Q30M PRN IV 08/03/24 15:00 Clopidogrel Bisulfate 75 mg DAILY PO 08/05/24 10:00 08/06/24 09:36 75 MG Laboratory Results Laboratory Tests 08/04/24 05:14 Microbiology Microbiology Date/Time Source Procedure Growth Status 08/04/24 00:40 Nose MRSA Screen - Final Complete Assessment/Plan Assessment/Plan 69-year-old female with a known history of diabetes mellitus type 2, hypertension, dyslipidemia, GERD, severe peripheral vascular disease status post bilateral stent placement in the lower legs. Presented to the hospital as she was sent by vascular surgery. Patient was found to have 1. Severe peripheral vascular disease of the bilateral lower extremity status post SFA stents both legs, need revascularization surgery with a intervention angioplasty /stenting/atherectomy. 2. Bilateral resting feet pain secondary to severe peripheral vascular disease 3. Diabetes mellitus type 2 4. Hypertension 5. Dyslipidemia 6. GERD -patient is status post left lower extremity angiogram with interventionncluding atherectomy/angioplasty/stenting. -right lower extremity bypass surgery on Thursday. Plan discussed with: Patient Date of Service: Aug 06, 2024 Billing Provider: YUNIER JON MD Common Visit Codes: NOT BILLABLE YUNIER JON MD Aug 06, 2024 14:13
[2024-08-07] VITALS (9 sets, daily range): BP systolic 126–152; BP diastolic 55–70; PULSE 100–122; RESP 18–20; TEMP 97.7–98.6; O2SAT 92–100
--- NOTE | 2024-08-07 14:18 | DVHPN2 ---
Subjective Overnight events noted. Patient underwent left lower extremity angiogram status post atherectomy and angioplasty. Currently waiting for right fem popliteal bypass wishes going to be done on Thursday. 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 Medications Current Medications Medications Dose Ordered Sig/Linda Route Start Time Stop Time Status Last Admin Dose Admin Sodium Chloride 1,000 ml @ 120 mls/hr Q8H20M IV 08/03/24 15:00 08/07/24 10:58 120 MLS/HR Acetaminophen/ Hydrocodone Bitart 1 tab Q4HP PRN PO 08/03/24 15:00 08/07/24 09:55 1 TAB Ondansetron HCl 4 mg Q4HP PRN IV 08/03/24 15:00 08/03/24 18:49 4 MG Docusate Sodium 100 mg BIDPRN PRN PO 08/03/24 15:00 Acetaminophen 650 mg Q6HP PRN PO 08/03/24 15:00 Morphine Sulfate 2 mg Q4HPRN PRN IV 08/03/24 15:00 08/07/24 00:36 2 MG Nitroglycerin 0.4 mg Q5MINP PRN SL 08/03/24 15:00 Morphine Sulfate 2 mg Q30M PRN IV 08/03/24 15:00 Clopidogrel Bisulfate 75 mg DAILY PO 08/05/24 10:00 08/07/24 09:42 75 MG Laboratory Results Laboratory Tests 08/04/24 05:14 Microbiology Microbiology Date/Time Source Procedure Growth Status 08/04/24 00:40 Nose MRSA Screen - Final Complete Assessment/Plan Assessment/Plan 69-year-old female with a known history of diabetes mellitus type 2, hypertension, dyslipidemia, GERD, severe peripheral vascular disease status post bilateral stent placement in the lower legs. Presented to the hospital as she was sent by vascular surgery. Patient was found to have 1. Severe peripheral vascular disease of the bilateral lower extremity status post SFA stents both legs, need revascularization surgery with a intervention angioplasty /stenting/atherectomy. 2. Bilateral resting feet pain secondary to severe peripheral vascular disease 3. Diabetes mellitus type 2 4. Hypertension 5. Dyslipidemia 6. GERD -patient is status post left lower extremity angiogram with interventionncluding atherectomy/angioplasty/stenting. -right lower extremity bypass surgery on Thursday. Plan discussed with: Patient Date of Service: Aug 07, 2024 Billing Provider: YUNIER JON MD Common Visit Codes: NOT BILLABLE YUNIER JON MD Aug 07, 2024 14:18
[2024-08-07] MEDS: DOCUSATE SOD 100 MG CAP PO PRN (14:33)
[2024-08-08] VITALS (7 sets, daily range): BP systolic 117–162; BP diastolic 58–74; PULSE 87–120; RESP 16–18; TEMP 98.3–99; O2SAT 90–100
[2024-08-08] MEDS ORDERED: ONDANSETRON HCL 4 MG/2 ML VIAL ONE (07:52)
[2024-08-08] MEDS ORDERED: LIDOCAINE 1% INJ PF 5ML AMP ONE (07:52)
[2024-08-08] MEDS ORDERED: KETAMINE 50mg/ML 1ml syringe ONE (07:52)
[2024-08-08] MEDS ORDERED: DexAMETHasone SOD PHOS 10MG/1ML VIAL INJ ONE ×2 (07:52→08:27)
[2024-08-08] MEDS ORDERED: PROPOFOL 10 MG/ML 20 ML IV ONE ×3 (07:52→11:02)
[2024-08-08] MEDS ORDERED: GLYCOPYRROLATE 0.2 MG/ML 1ML VIAL ONE (07:52)
[2024-08-08] MEDS ORDERED: EPINEPHrine HCL 1 MG/1 ML AMP ONE (08:27)
[2024-08-08] MEDS: ceFAZolin 2 GM/D5W50ml 50 ML IV ONE (08:38)
[2024-08-08] MEDS ORDERED: LIDOCAINE HCL 2% TOP JELLY 5ML TOP ONE (08:52)
[2024-08-08] MEDS ORDERED: LIDOCAINE 2% (LOCAL ANESTH.) PF 5ml SDV ONE (08:54)
[2024-08-08] MEDS ORDERED: ESMOLOL HCL 10 ML IV ONE (09:22)
[2024-08-08] MEDS ORDERED: fentaNYL CITRATE 100 MCG/2 ML VL ONE ×2 (09:24→11:57)
[2024-08-08] MEDS ORDERED: METOPROLOL TARTRATE 1MG/1ML-5ML VIAL IV ONE (09:46)
[2024-08-08] MEDS: BUPIVACAINE HCL 0.25% P/F 10 ML VIAL ONE (09:49)
[2024-08-08] MEDS: LIDOCAINE 1% HCL (LOCAL ANESTH.) INJ 20ML MDV ONE (09:50)
[2024-08-08] MEDS: HEPARIN SODIUM (PORCINE) 5000 UNITS/ML 1ML VIAL ONE (09:52)
--- NOTE | 2024-08-08 12:20 | DVHOP2 ---
Operative Report - 2 Report Details Date: 08/08/24 Preop Diagnosis: right occluded SFA stent Postop Diagnosis: Same Surgeon: Abe Randolph MD Anesthesiologist: General Anesthesia: General, Local, Regional Consent: The patient was informed of the risks and benefits of the procedure. These include but are not limited to complications of anesthesia, postoperative infection, incomplete relief of symptoms, recurrence of symptoms, damage to blood vessels, nerves and tendons, deep venous thrombosis, pulmonary embolism and possible need for repeat surgery in the future. Complications: None Estimated Blood Loss: 100 mL Indications for Surgery: Right leg critical limb ischemia Name of Procedure Performed Right femoral to above knee popliteal artery bypass with [place]-Brendon graft. Right 1st and 2nd toe metatarsal amputation. Procedure Details Procedure Details: Patient was identified in the preop hold area is being Mrs. Mancera at this point in time she was consented and preopped by myself she was brought back to the operating room placed the operating table in supine position after adequate induction of anesthesia antibiotics and time-out the right leg was prepped and draped in normal surgical fashion. The initial incision was made just above the knee on the medial aspect Bovie cauterization was taken down dissection was taken down into the above knee popliteal fossa where the popliteal artery was identified and dissected out proximally and distally vessel loops were placed. Attention was then placed to the right common femoral artery where there was an incision made in a longitudinal fashion. Dissection was taken down with Bovie cauterization of the common femoral artery was then dissected out proximally and distally with vessel loops. At this point in time a sub sartorius tunnel was created and a tunneling catheter was used to tunnel a 6 mm [place]-Brendon Propaten graft from the popliteal incision to the common femoral incision. The femoral portion of the graft was spatulated and then the 5000 units of heparin was given to the patient. A the common femoral artery was then clamped proximally and distally arteriotomy was made with a 11 blade was extended with Mendez scissors. The [place]-Brendon graft was then sewn to the common femoral artery and and side fashion with 5 0 [place]-Brendon suture. At the completion of the anastomosis the flow was restored there was excellent flow down passed into the profunda. The graft was patent and pulsatile bleeding was noted graft was then clamped attention was then placed to the popliteal artery the popliteal artery was then exposed was clamped proximally and distally with vessel loops. The graft was then spatulated. Arteriotomy was made in the popliteal artery there was distal flow with backbleeding no proximal flow noted plaque was removed from the popliteal artery. The graft was then sewn to the popliteal artery and end-to-side fashion with 500 [place]-Brendon suture. At the completion anastomosis all vessels involved were unclamped flow was restored there was a Doppler signal in distal popliteal artery at this time. The wounds were then irrigated out and each were closed with the deep layers of Vicryl sutures followed by dermal layers of Vicryl sutures 2-0 Vicryl was used. The skin was closed with bijal in both incisions sterile dressings were applied including gauze and Tegaderm. Attention was then placed to the right 1st and 2nd toe which was dry gangrene. A lollipop incision was made incorporating both the 1st and 2nd toe the 1st until a 2nd toe were amputated there was some purulent drainage that was noted in the metatarsal area of the 1st toe which was sent off as a culture. The toe was amputated the metatarsal heads of both 1st and 2nd toes were amputated with a bone saw. The wound was then irrigated out healthy bleeding was noted due to the fact that there was purulent drainage the wound was not closed completely 2 interrupted Prolene sutures were used in the dorsum of the foot. The plantar and distal portion of the foot was then packed with Betadine soaked gauze. A sterile dressing was applied the patient was taken to the PACU in a stable condition sponge and needle counts were correct. Dictation complete. Specimen: First and 2nd toe plus metatarsal heads. Wound culture right 1st toe Condition Good Disposition pacu ABE RANDOLPH Jr., MD Aug 08, 2024 12:20
[2024-08-08] MEDS ORDERED: ONDANSETRON HCL 4 MG/2 ML VIAL IV PRN (12:30)
[2024-08-08] MEDS ORDERED: NALOXONE HCL 0.4 MG/ML VIAL IV PRN (12:30)
[2024-08-08] MEDS ORDERED: FLUMAZENIL 0.1 MG/ML INJ 10ML MDV IV PRN (12:30)
[2024-08-08] MEDS ORDERED: ePHEDrine SULFATE 50 MG/ML AMP IV PRN (12:30)
[2024-08-08] MEDS ORDERED: HYDROmorphone HCL 2 MG/ML VL/or syr IV PRN (12:30)
[2024-08-08] MEDS ORDERED: fentaNYL CITRATE 100 MCG/2 ML VL IV PRN (12:30)
[2024-08-08] MEDS ORDERED: hydrALAZINE HCL 20 MG/ML VL IV PRN (12:30)
[2024-08-08] MEDS: LABETALOL HCL 20 MG/4 ML VL IV PRN (13:17)
--- NOTE | 2024-08-08 16:24 | DVHPN2 ---
Subjective Overnight events noted. Patient underwent left lower extremity angiogram status post atherectomy and angioplasty. Patient is status post right femoropopliteal bypass today. 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 Medications Current Medications Medications Dose Ordered Sig/Linda Route Start Time Stop Time Status Last Admin Dose Admin Sodium Chloride 1,000 ml @ 120 mls/hr Q8H20M IV 08/03/24 15:00 08/08/24 03:28 120 MLS/HR Acetaminophen/ Hydrocodone Bitart 1 tab Q4HP PRN PO 08/03/24 15:00 08/07/24 23:07 1 TAB Ondansetron HCl 4 mg Q4HP PRN IV 08/03/24 15:00 08/03/24 18:49 4 MG Docusate Sodium 100 mg BIDPRN PRN PO 08/03/24 15:00 08/07/24 14:33 100 MG Acetaminophen 650 mg Q6HP PRN PO 08/03/24 15:00 Morphine Sulfate 2 mg Q4HPRN PRN IV 08/03/24 15:00 08/08/24 14:06 2 MG Nitroglycerin 0.4 mg Q5MINP PRN SL 08/03/24 15:00 Morphine Sulfate 2 mg Q30M PRN IV 08/03/24 15:00 Clopidogrel Bisulfate 75 mg DAILY PO 08/05/24 10:00 08/08/24 13:59 75 MG Labetalol HCl 5 mg PRN PRN IV 08/08/24 12:30 08/08/24 13:17 5 MG Laboratory Results Laboratory Tests 08/04/24 05:14 Microbiology Microbiology Date/Time Source Procedure Growth Status 08/04/24 00:40 Nose MRSA Screen - Final Complete Assessment/Plan Assessment/Plan 69-year-old female with a known history of diabetes mellitus type 2, hypertension, dyslipidemia, GERD, severe peripheral vascular disease status post bilateral stent placement in the lower legs. Presented to the hospital as she was sent by vascular surgery. Patient was found to have 1. Severe peripheral vascular disease of the bilateral lower extremity status post SFA stents both legs, status post left lower extremity angiogram with atherectomy/angioplasty/stenting 2. Bilateral resting feet pain secondary to severe peripheral vascular disease, status post right fem popliteal bypass postop day 0 3. Diabetes mellitus type 2 4. Hypertension 5. Dyslipidemia 6. GERD -patient is status post left lower extremity angiogram with interventionncluding atherectomy/angioplasty/stenting. -patient is status post right femoropopliteal bypass on 08/08 -pain meds, DVT GI prophylaxis, r Plan discussed with: Patient Date of Service: Aug 08, 2024 Billing Provider: YUNIER JON MD Common Visit Codes: NOT BILLABLE YUNIER JON MD Aug 08, 2024 16:24
[2024-08-09] VITALS (7 sets, daily range): BP systolic 118–166; BP diastolic 67–75; PULSE 71–114; RESP 17–20; TEMP 98–98.6; O2SAT 94–99
--- NOTE | 2024-08-09 06:59 | DVHPN2 ---
Progress Note Date Seen: Aug 09, 2024 Medical Necessity Reason Pt with a Central, PICC or Fol: No Reason for briones catheter: Juan. Abd Surgery Subjective Patient reports: No new complaints Review of Systems: HEENT:Normal, CVS:Normal, RESPIRATORY:Normal, GI:Normal, :Normal, MSK:Normal, NEURO:Normal Objective vital signs Vital Sign Date Time Temp Pulse Resp B/P (MAP) Pulse Ox O2 Delivery O2 Flow Rate FiO2 08/09/24 05:00 98.0 100 18 151/74 (99) 99 98.0 08/08/24 20:00 Room Air* 0 21 Total Intake and Output 08/08/24 08/08/24 08/09/24 15:00 23:00 07:00 Intake Total 10 ml 480 ml 380 ml Output Total 100 ml 650 ml 650 ml Balance -90 ml -170 ml -270 ml medications Current Medications Medications Dose Ordered Sig/Linda Route Start Time Stop Time Status Last Admin Dose Admin Sodium Chloride 1,000 ml @ 120 mls/hr Q8H20M IV 08/03/24 15:00 08/09/24 03:24 120 MLS/HR Acetaminophen/ Hydrocodone Bitart 1 tab Q4HP PRN PO 08/03/24 15:00 08/09/24 03:47 1 TAB Ondansetron HCl 4 mg Q4HP PRN IV 08/03/24 15:00 08/03/24 18:49 4 MG Docusate Sodium 100 mg BIDPRN PRN PO 08/03/24 15:00 08/07/24 14:33 100 MG Acetaminophen 650 mg Q6HP PRN PO 08/03/24 15:00 Morphine Sulfate 2 mg Q4HPRN PRN IV 08/03/24 15:00 08/08/24 14:06 2 MG Nitroglycerin 0.4 mg Q5MINP PRN SL 08/03/24 15:00 Morphine Sulfate 2 mg Q30M PRN IV 08/03/24 15:00 Clopidogrel Bisulfate 75 mg DAILY PO 08/05/24 10:00 08/08/24 13:59 75 MG Labetalol HCl 5 mg PRN PRN IV 08/08/24 12:30 08/08/24 13:17 5 MG Examination: GENERAL:Normal, HEENT:Normal, NECK:Normal, LUNGS:Normal, CVS:Normal, ABDOMEN:Normal, MSK:Normal, SKIN:Normal, NEURO:Normal, :Normal laboratory and microbiology Laboratory Tests 08/04/24 05:14 Test 08/04/24 05:14 Range/Units Serum Glucose 174 H 74-106 mg/dL Microbiology Date/Time Source Procedure Growth Status 08/04/24 00:40 Nose MRSA Screen - Final Complete Problem List/Assessment/Plan Problem List/Assessment/Plan Postop day 1. Status post right fem bypass was 1st and 2nd toe metatarsal amputations. Out of bed Physical therapy Heel touch to the right foot only. Pain control Plan discussed with: Patient My Orders My Orders Orders - HOWIE SOARES Jr., MD Procedure Category Date Status Time Bupivacaine Hcl/Pf PHA 08/08/24 In Process (Marcaine Pf) 08:45 Routine Bacterial SWEETIE 08/08/24 In Process Culture 11:41 Anaerobic Culture SWEETIE 08/08/24 In Process 11:41 Gram Stain SWEETIE 08/08/24 In Process 11:41 Dietary Evaluation Review Comments: follow CCHO-60 diet, Guevara BID for wound healing. Expected Outcomes/Goals: controlled DM, healed wounds and gradual wt loss HOWIE SOARES Jr., MD Aug 09, 2024 06:59
--- NOTE | 2024-08-09 15:12 | DVHPN2 ---
Subjective Overnight events noted. Patient underwent left lower extremity angiogram status post atherectomy and angioplasty. Patient is status post right femoropopliteal bypass today. Reviewed: Care Plan Changes from previous H/P or p: No Changes Objective Vitals Vital Signs Date Time Temp Pulse Resp B/P (MAP) Pulse Ox O2 Delivery O2 Flow Rate FiO2 08/09/24 12:00 112 16 138/72 08/09/24 09:00 98.1 97 98.1 08/09/24 08:00 Room Air* 0 21 Intake/Output Intake and Output 08/09/24 07:00 Intake Total 870 ml Output Total 1400 ml Balance -530 ml Intake Oral 380 ml IV Total 490 ml Output Urine Total 1400 ml Exam HEENT pupils are reactive Neck is supple CV is S1-S2 regular rate and rhythm Diminished breath sound bases GI posterior bowel sound Extremity no edema [employer] no motor deficit Medications Current Medications Medications Dose Ordered Sig/Linda Route Start Time Stop Time Status Last Admin Dose Admin Sodium Chloride 1,000 ml @ 120 mls/hr Q8H20M IV 08/03/24 15:00 08/09/24 03:24 120 MLS/HR Acetaminophen/ Hydrocodone Bitart 1 tab Q4HP PRN PO 08/03/24 15:00 08/09/24 13:22 1 TAB Ondansetron HCl 4 mg Q4HP PRN IV 08/03/24 15:00 08/03/24 18:49 4 MG Docusate Sodium 100 mg BIDPRN PRN PO 08/03/24 15:00 08/07/24 14:33 100 MG Acetaminophen 650 mg Q6HP PRN PO 08/03/24 15:00 Morphine Sulfate 2 mg Q4HPRN PRN IV 08/03/24 15:00 08/09/24 11:31 2 MG Nitroglycerin 0.4 mg Q5MINP PRN SL 08/03/24 15:00 Morphine Sulfate 2 mg Q30M PRN IV 08/03/24 15:00 Clopidogrel Bisulfate 75 mg DAILY PO 08/05/24 10:00 08/09/24 11:02 75 MG Labetalol HCl 5 mg PRN PRN IV 08/08/24 12:30 08/08/24 13:17 5 MG Laboratory Results Laboratory Tests 08/04/24 05:14 Microbiology Microbiology Date/Time Source Procedure Growth Status 08/08/24 13:00 Foot Right Gram Stain Pending Resulted 08/08/24 13:00 Foot Right Anaerobic Culture - Preliminary Resulted 08/08/24 13:00 Foot Right Aerobic Culture - Preliminary Resulted Assessment/Plan Assessment/Plan 69-year-old female with a known history of diabetes mellitus type 2, hypertension, dyslipidemia, GERD, severe peripheral vascular disease status post bilateral stent placement in the lower legs. Presented to the hospital as she was sent by vascular surgery. Patient was found to have 1. Severe peripheral vascular disease of the bilateral lower extremity status post SFA stents both legs, status post left lower extremity angiogram with atherectomy/angioplasty/stenting 2. Bilateral resting feet pain secondary to severe peripheral vascular disease, status post right fem popliteal bypass postop day1, status post amputation of the 1st and 2nd metatarsal 3. Diabetes mellitus type 2 4. Hypertension 5. Dyslipidemia 6. GERD -patient is status post left lower extremity angiogram with interventionncluding atherectomy/angioplasty/stenting. -patient is status post right femoropopliteal bypass on 08/08 -pain meds, DVT GI prophylaxis, r Plan discussed with: Patient Date of Service: Aug 09, 2024 Billing Provider: YUNIER JON MD Common Visit Codes: NOT BILLABLE YUNIER JON MD Aug 09, 2024 15:12
[2024-08-10 01:00] VITALS: BP 136/56; PULSE 105; RESP 18; TEMP 98.5; O2SAT 98
[2024-08-10 05:00] VITALS: BP 172/68; PULSE 103; RESP 18; TEMP 98.4; O2SAT 98
--- NOTE | 2024-08-10 07:13 | DVHPN2 ---
Progress Note Date Seen: Aug 10, 2024 Medical Necessity Reason Pt with a Central, PICC or Fol: No Reason for briones catheter: Total Immobilization Subjective Patient reports: Other (Complaining of right leg pain foot pain difficulty putting pressure on foot. Postsurgery) Changes from previous H/P or p: No Changes Review of Systems: HEENT:Normal, CVS:Normal, RESPIRATORY:Normal, GI:Normal, :Normal, MSK:Normal, NEURO:Normal Objective vital signs Vital Sign Date Time Temp Pulse Resp B/P (MAP) Pulse Ox O2 Delivery O2 Flow Rate FiO2 08/10/24 05:00 98.4 103 18 172/68 (102) 98 98.4 08/09/24 20:00 Room Air* 0 21 Total Intake and Output 08/09/24 08/09/24 08/10/24 15:00 23:00 07:00 Intake Total 1320 ml 700 ml Output Total 450 ml 1000 ml Balance 870 ml -300 ml medications Current Medications Medications Dose Ordered Sig/Linda Route Start Time Stop Time Status Last Admin Dose Admin Sodium Chloride 1,000 ml @ 120 mls/hr Q8H20M IV 08/03/24 15:00 08/10/24 04:55 120 MLS/HR Acetaminophen/ Hydrocodone Bitart 1 tab Q4HP PRN PO 08/03/24 15:00 08/10/24 04:54 1 TAB Ondansetron HCl 4 mg Q4HP PRN IV 08/03/24 15:00 08/03/24 18:49 4 MG Docusate Sodium 100 mg BIDPRN PRN PO 08/03/24 15:00 08/07/24 14:33 100 MG Acetaminophen 650 mg Q6HP PRN PO 08/03/24 15:00 Morphine Sulfate 2 mg Q4HPRN PRN IV 08/03/24 15:00 08/09/24 22:10 2 MG Nitroglycerin 0.4 mg Q5MINP PRN SL 08/03/24 15:00 Morphine Sulfate 2 mg Q30M PRN IV 08/03/24 15:00 Clopidogrel Bisulfate 75 mg DAILY PO 08/05/24 10:00 08/09/24 11:02 75 MG Labetalol HCl 5 mg PRN PRN IV 08/08/24 12:30 08/08/24 13:17 5 MG Examination: MSK:Normal (Dressings clean dry and intact. Bilateral legs are warm and well perfused. No edema.) laboratory and microbiology Laboratory Tests 08/04/24 05:14 Test 08/04/24 05:14 Range/Units Serum Glucose 174 H 74-106 mg/dL Microbiology Date/Time Source Procedure Growth Status 08/08/24 13:00 Foot Right Gram Stain Pending Resulted 08/08/24 13:00 Foot Right Anaerobic Culture - Preliminary Resulted 08/08/24 13:00 Foot Right Aerobic Culture - Preliminary Resulted Problem List/Assessment/Plan Problem List/Assessment/Plan Postop day 2.. Status post right fem bypass was 1st and 2nd toe metatarsal amputations. Out of bed Physical therapy Heel touch to the right foot only. Pain control Social work evaluation for possible rehabilitation placement and right foot wound care Plan discussed with: Patient Dietary Evaluation Review Comments: follow CCHO-60 diet, Guevara BID for wound healing. Expected Outcomes/Goals: controlled DM, healed wounds and gradual wt loss HOWIE SOARES Jr., MD Aug 10, 2024 07:13
[2024-08-10 08:00] VITALS: PULSE 103
[2024-08-10 13:00] VITALS: BP_SYST 130; BP_SYST 151; BP_DIAS 65; BP_DIAS 78; PULSE 101; PULSE 106; RESP 20; TEMP 98.3; TEMP 98.4; O2SAT 94; O2SAT 99
--- NOTE | 2024-08-10 13:37 | DVHDS2 ---
Discharge Summary Date of Admission Aug 03, 2024 at 14:59 Date of Discharge: Aug 10, 2024 Labs/Diagnostic Data: Laboratory Results Test 08/08/24 12:18 08/04/24 05:14 08/03/24 11:27 POC Glucose 209 mg/dl (70-106) White Blood Count 11.5 10^3/uL (4.4-10.8) Red Blood Count 3.61 10^6/uL (4.0-5.20) Hemoglobin 9.3 g/dL (12.2-16.2) Hematocrit 28.6 % (36.0-46.0) Mean Corpuscular Volume 79.2 fL (80.0-100.0) Mean Corpuscular Hemoglobin 25.7 pg (28.0-32.0) Mean Corpuscular Hemoglobin Concent 32.5 g/dL (32.0-36.0) Red Cell Distribution Width 14.4 % (11.8-14.3) Platelet Count 690 10^3/uL (140-450) Mean Platelet Volume 7.7 fL (6.9-10.8) Neutrophils (%) (Auto) 84.3 % (37.0-80.0) Lymphocytes (%) (Auto) 5.5 % (10.0-50.0) Monocytes (%) (Auto) 8.8 % (0.0-12.0) Eosinophils (%) (Auto) 0.8 % (0.0-7.0) Basophils (%) (Auto) 0.6 % (0.0-2.0) Neutrophils # (Auto) 9.7 10 ^3/uL (1.6-8.6) Lymphocytes # (Auto) 0.6 10 ^3/uL (0.4-5.4) Monocytes # (Auto) 1.0 10 ^3/uL (0-1.3) Eosinophils # (Auto) 0.1 10 ^3/uL (0-0.8) Basophils # (Auto) 0.1 10 ^3/uL (0-0.2) Nucleated Red Blood Cells 0.1 % Sodium Level 139 mmol/L (136-145) Potassium Level 3.5 mmol/L (3.5-5.1) Chloride Level 103 mmol/L (98-107) Carbon Dioxide Level 26 mmol/L (20-31) Anion Gap 10 (5-15) Blood Urea Nitrogen 9 mg/dL (9-23) Creatinine 0.72 mg/dL (0.550-1.02) Glomerular Filtration Rate Calc 90 mL/min (>90) BUN/Creatinine Ratio 12.5 (10.0-20.0) Serum Glucose 174 mg/dL (74-106) Calcium Level 9.4 mg/dL (8.7-10.4) Total Bilirubin 0.3 mg/dL (0.2-1.0) Aspartate Amino Transferase (AST) 14 U/L (13-40) Alanine Aminotransferase (ALT) 10 U/L (7-40) Alkaline Phosphatase 115 U/L (46-116) Total Protein 7.7 g/dL (5.7-8.2) Albumin 3.9 g/dL (3.2-4.8) Prothrombin Time 11.7 sec (9.3-11.8) Prothrombin Time INR 1.12 (0.9-1.15) Activated Partial Thromboplast Time 44.7 SEC (24.5-34.5) Other Laboratory Tests 08/04/24 05:14 Brief Hx & Hospital Course: 69-year-old female with a known history of diabetes mellitus type 2, hypertension, dyslipidemia, GERD, severe peripheral vascular disease status post bilateral stent placement in the lower legs. Presented to the hospital as she was sent by vascular surgery. Patient was found to have severe peripheral vascular disease. Patient underwent s/p left lower extremity angiogram with atherectomy with angioplasty. Patient also remains right femoropopliteal bypass. Patient stated that her diabetes is better controlled and A1c less than 6. Patient will be discharged on p.o.. [facility] with outpatient follow up with Dr. NGUYEN as well as vascular surgery. Condition at Discharge: Good Final Diagnosis/Problems List 69-year-old female with a known history of diabetes mellitus type 2, hypertension, dyslipidemia, GERD, severe peripheral vascular disease status post bilateral stent placement in the lower legs. Presented to the hospital as she was sent by vascular surgery. Patient was found to have 1. Severe peripheral vascular disease of the bilateral lower extremity status post SFA stents both legs, status post left lower extremity angiogram with atherectomy/angioplasty/stenting 2. Bilateral resting feet pain secondary to severe peripheral vascular disease, status post right fem popliteal bypass postop day1, status post amputation of the 1st and 2nd metatarsal 3. Diabetes mellitus type 2 4. Hypertension 5. Dyslipidemia 6. GERD Discharge Disposition: Assisted Facility Discharge Instruct/Medications Diet: Cardiac 2g Na,low cholest Diet comment: 1800 ADA diet Activity: No Restrictions, As Tolerated Follow Up/Referral: Polyp with PCP with repeat hemoglobin A1c in 1 week upon discharge Follow up with vascular surgery in 1-2 weeks Medications: As reconciled and prescribed Discharge Statement: "Patient was advised to return to the ER or call 911 if any headaches, dizziness, shortness of breath, chest pain, abdominal pain, bleeding, fevers, or worsening of medical condition. Patient was counseled about treatment plan, medications, possible side effects, patientverbalized understanding. All questions were answered to the best of my ability. This discharge took greater then 30 minutes in planning, reviewing documentation, counseling the patient, and discussing with other team members." ASSESSMENT ASSESSMENT Assessment 69-year-old female with a known history of diabetes mellitus type 2, hypertension, dyslipidemia, GERD, severe peripheral vascular disease status post bilateral stent placement in the lower legs. Presented to the hospital as she was sent by vascular surgery. Patient was found to have 1. Severe peripheral vascular disease of the bilateral lower extremity status post SFA stents both legs, status post left lower extremity angiogram with atherectomy/angioplasty/stenting 2. Bilateral resting feet pain secondary to severe peripheral vascular disease, status post right fem popliteal bypass postop day1, status post amputation of the 1st and 2nd metatarsal 3. Diabetes mellitus type 2 4. Hypertension 5. Dyslipidemia 6. GERD Date of Service: Aug 10, 2024 Billing Provider: YUNIER JON MD Common Visit Codes: NOT BILLABLE YUNIER JON MD Aug 10, 2024 13:36
[2024-08-10] MEDS ORDERED: HYDR-4902 PO (15:13)
[2024-08-10 16:45] VITALS: BP 168/71; PULSE 112; RESP 20; TEMP 98.4; O2SAT 100
[2024-08-10 18:30] VITALS: BP 155/84
== END 2024-08-10 20:21 | DRG 240 ==
LOC: ER 09:43 → OVERFLOW 14:59 → TELE-CENTR 23:47
PROVIDERS: ADMIT Internal Medicine; ATTEND Internal Medicine
PROC: 047L3Z1 Dilation of Left Femoral Artery using Drug-Coated Balloon, Percutaneous Approach (ICD-10-PCS; 2024-08-04)
PROC: B41GYZZ Fluoroscopy of Left Lower Extremity Arteries using Other Contrast (ICD-10-PCS; 2024-08-04)
PROC: 0Y6M0ZB Detachment at Right Foot, Partial 2nd Ray, Open Approach (ICD-10-PCS; 2024-08-08)
PROC: 0Y6M0Z9 Detachment at Right Foot, Partial 1st Ray, Open Approach (ICD-10-PCS; principal; 2024-08-08 09:03)
PROC: 041K0JL Bypass Right Femoral Artery to Popliteal Artery with Synthetic Substitute, Open Approach (ICD-10-PCS; 2024-08-08 09:03)
DX: T82.856A Stenosis of peripheral vascular stent, initial encounter (principal); E11.52 Type 2 diabetes mellitus with diabetic peripheral angiopathy with gangrene; I70.261 Atherosclerosis of native arteries of extremities with gangrene, right leg; K21.9 Gastro-esophageal reflux disease without esophagitis; Y83.8 Other surgical procedures as the cause of abnormal reaction of the patient, or of later complication, without mention of misadventure at the time of the procedure; I10 Essential (primary) hypertension; E78.5 Hyperlipidemia, unspecified; Z95.820 Peripheral vascular angioplasty status with implants and grafts; Y92.89 Other specified places as the place of occurrence of the external cause
CPT/HCPCS: 36415; 37224; 71045; 73630; 80048; 80053; 82962; 85025; 85610; 85730; 86850; 86900; 86901; 87070; 87075; 87077; 87081; 87186; 87205; 93306; 93925; 96361; 96374; 97163; 99152; 99291; C1725; C1768; C1769; C1781; C1894; G0378; J0171; J1100; J2003; J2250; J2405; J2704; J3490; Q9967

== ENCOUNTER 2024-08-21 15:01 | Inpatient (IN) | payer OTHER ==
[~2024-08-21] VITALS: Ht 165.1 cm; Wt 85.5 kg
[~2024-08-21 15:01] MED LIST changes: +ACET-2058 PO; +ASPI81CH59 PO; +ATOR40TA52 PO; +BISA10SU45 RE; +DOCU-111 PO; +DOCU-94 PO; -DOXY100C4 PO; -GABA-1250 PO; +HYDR-4072 PO; +INSU100I52 IJ; +MAGNSUS48 PO; +MELA3TAB27 PO; -METF-929 PO; +NITR0.4S29 SL; +ONDA-155 PO; -OXYC325T14 PO; -PANT40TA57 PO; -[UNRECOGNIZED DRUG - CODE] SC
--- NOTE | 2024-08-21 15:33 | ED.PDOC ---
History of Present Illness HPI Comments 69-year-old female brought in by EMS from [facility] for evaluation of a left foot wound and bilateral foot pain. Patient states her foot dressings were being changed today by facility staff when maggots were noted within the left foot wound. Patient also notes a foul odor coming from the wound. She states she is scheduled for surgery on her right foot here tomorrow by Dr. Randolph. She also notes worsening bilateral leg edema and worsening bilateral chronic foot pain. She denies any fever, chest pain or shortness of breath. Chief Complaint: Wound Check Time Seen by MD: 15:06 Primary Care Provider: TAO Allergies: Coded Allergies: NO KNOWN ALLERGIES (Unverified , 08/03/24) Home Meds Reported Medications Ondansetron HCl (Ondansetron) 4 Mg Tab, 4 MG PO DAILY, TAB 08/18/24 Nitroglycerin (NTROSTAT SUBLINGUAL) 0.4 Mg Sl, 0.4 MG SL PRN, TAB *MAY REPEAT EVERY 5 MINUTES X 3 TOTAL IF NO RELIEF, INITIATE ANALGESIC THERAPY. NOTIFY PHYSICIAN *Do not crush. 08/18/24 Magnesium Hydroxide (Milk of Magnesia 400 mg/5Ml) 1 [place], 1 SELMA PO PRN, ML 08/18/24 Melatonin (KP MELATONIN) 3 Mg Tab, 10 MG PO HS, TAB 08/18/24 Insulin Lispro (Insulin Lispro) 100 Unit/Ml Inj, 100 UNIT IJ DAILY@BREAKFAST, INJ 08/18/24 Hydrocodone-Acetaminophen (Hydrocodone/Acetaminophen 10-325 mg) 1 Tab Tab, 1 TAB PO PRN, TAB 08/18/24 Bisacodyl (Dulcolax) 10 Mg Sup, 10 MG RE, SUPP 08/18/24 Docusate Sodium (Sb Docusate Sodium) 100 Mg Cap, 100 MG PO DAILY, CAP 08/18/24 Docusate Sodium (Colace) 100 Mg Cap, 100 MG PO DAILY, CAP 08/18/24 Atorvastatin Calcium (ATORVASTATIN CALCIUM) 40 Mg Tab, 40 MG PO DAILY, TAB 08/18/24 Acetaminophen (Acetaminophen) 160 Mg/5 Ml Monalisa, 325 MG PO DAILY, ML 08/18/24 Aspirin (Aspirin Low Dose) 81 Mg Chw, 81 MG PO DAILY, TAB.CHEW 08/18/24 Insulin Glargine (Insulin Glargine Solostar) 300 Unit/Ml Inj, 50 UNIT SC QAM for 27 Days, #4.5 08/04/24 Clopidogrel Bisulfate (CLOPIDOGREL) 75 Mg Tab, 1 TAB PO DAILY for 90 Days, #90 08/04/24 Past Medical History PAST MEDICAL HISTORY: DM, GERD, HTN Past Medical History (Other): Dyslipidemia, chronic bilateral foot wounds Surgical History (Other): Right finger amputations, left great and 2nd toe amputations 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 Family History Family History: Reviewed,noncontributory to illness, No family hx of Cancer, No family hx of DM, No family hx of Heart jocelyn, No family hx of HTN, No family hx ofKidney jocelyn, No family hx of Liver jocelyn, No family hx of Lung jocelyn, No family hx of Stroke Social History Smoker: Non-Smoker Alcohol: Denies ETOH Use Drugs: Denies Drug Use Lives In: Prison All Other Systems: Reviewed and Negative (Comprehensive systems review obtained and negative except for what is stated in the HPI.) Physical Exam General Appearance: No Apparent Distress HEENT: Other (Vitals and face symmetric. Moist mucous membranes.) Neck: Full Range of Motion, Normal Inspection Respiratory: Lungs Clear, No Accessory Muscle Use, No Respiratory Distress, Normal Breath Sounds Cardiovascular: No JVD, Regular Rate/Rhythm Breast Exam: Deferred Gastrointestinal: Non Tender, Soft Genitalia: Deferred Pelvic: Deferred Rectal: Deferred Extremities: Leg edema, Pedal edema, Other (Right great and 2nd toe amputation with open wound without discharge, surrounding necrosis of the dorsal foot and 3rd toe. Left great toe and 2nd toe necrosis with interdigital wound containing maggots and purulent discharge.) Neurologic: Alert (Oriented x4), Normal Affect, Normal Mood, Other (Moves all extremities.) Cerebellar Function: NOT DONE Reflexes: NOT DONE Skin: Dry, Warm Lymphatic: NOT DONE Was a procedure done? Was a procedure done?: No Differential Dx Considerations may include: Wound infection/cellulitis, osteomyelitis, sepsis, peripheral arterial disease, DVT, CHF, liver disease, renal failure, among others X-Ray, Labs, Meds, VS Vital Signs Date Time Temp Pulse Resp B/P (MAP) Pulse Ox O2 Delivery O2 Flow Rate FiO2 08/21/24 17:07 98.8 110 21 158/64 (95) 98 98.8 08/21/24 16:48 109 08/21/24 16:21 90 17 158/70 08/21/24 16:15 Room Air* 0 21 08/21/24 15:25 98.8 90 17 15870 (99) 98 98.8 Lab Test 08/21/24 16:41 Range/Units White Blood Count 11.3 H 4.4-10.8 10^3/uL Red Blood Count 3.01 L 4.0-5.20 10^6/uL Hemoglobin 7.5 L 12.2-16.2 g/dL Hematocrit 23.0 L 36.0-46.0 % Mean Corpuscular Volume 76.6 L 80.0-100.0 fL Mean Corpuscular Hemoglobin 25.1 L 28.0-32.0 pg Mean Corpuscular Hemoglobin Concent 32.7 32.0-36.0 g/dL Red Cell Distribution Width 15.2 H 11.8-14.3 % Platelet Count 906 *H 140-450 10^3/uL Mean Platelet Volume 6.8 L 6.9-10.8 fL Neutrophils (%) (Auto) 85.4 H 37.0-80.0 % Lymphocytes (%) (Auto) 4.5 L 10.0-50.0 % Monocytes (%) (Auto) 6.9 0.0-12.0 % Eosinophils (%) (Auto) 2.5 0.0-7.0 % Basophils (%) (Auto) 0.7 0.0-2.0 % Neutrophils # (Auto) 9.7 H 1.6-8.6 10 ^3/uL Lymphocytes # (Auto) 0.5 0.4-5.4 10 ^3/uL Monocytes # (Auto) 0.8 0-1.3 10 ^3/uL Eosinophils # (Auto) 0.3 0-0.8 10 ^3/uL Basophils # (Auto) 0.1 0-0.2 10 ^3/uL Nucleated Red Blood Cells 0.0 % Platelet Estimate Markedly increased Microcytosis Slight Prothrombin Time 11.5 9.3-11.8 sec Prothrombin Time INR 1.09 0.9-1.15 Activated Partial Thromboplast Time 48.8 H 24.5-34.5 SEC Sodium Level 137 136-145 mmol/L Potassium Level 4.2 3.5-5.1 mmol/L Chloride Level 100 98-107 mmol/L Carbon Dioxide Level 25 20-31 mmol/L Anion Gap 12 5-15 Blood Urea Nitrogen 7 L 9-23 mg/dL Creatinine 0.72 0.550-1.02 mg/dL Glomerular Filtration Rate Calc 90 >90 mL/min BUN/Creatinine Ratio 9.7 L 10.0-20.0 Serum Glucose 157 H 74-106 mg/dL Lactic Acid Level 2.7 *H 0.4-2.0 mmol/L Calcium Level 9.7 8.7-10.4 mg/dL Troponin I High Sensitivity < 3 L </=34 ng/L B-Type Natriuretic Peptide 27.24 0-100 pg/mL Current Medications Medications (Trade) Dose Ordered Sig/Linda Route Start Time Stop Time Status Last Admin Piperacillin Sod/ Tazobactam Sod 100 ml @ 100 mls/hr ONCE ONCE IV 08/21/24 15:30 08/21/24 16:29 DC 08/21/24 16:21 Morphine Sulfate 4 mg ONCE ONCE IV 08/21/24 15:30 08/21/24 15:31 DC 08/21/24 16:21 Ondansetron HCl (Zofran) 4 mg ONCE ONCE IV 08/21/24 15:30 08/21/24 15:31 DC 08/21/24 16:21 PROCEDURE(s): CXRP - CHEST PORTABLE REASON: preop ORDER NUMBER(s): [id number], ACCESSION NUMBER(s): [id number] CHEST RADIOGRAPH Indication: preop Technique: Single frontal view of the chest was obtained Comparison: XY CHEST XRAY 1 VIEW on DOS: 08/03/24 FINDINGS: Lines and Tubes: None Lungs: No focal consolidation. Decreased inspiratory effort when compared to 08/03/2024 Pleura: No effusion. No pneumothorax. Cardiomediastinal contours: Unremarkable Bones: No acute osseous abnormality. IMPRESSION: 1. Decreased inspiratory effort. HS:Y EDURE(s): RFOT2 - R FOOT 2 VIEW XRAY REASON: foot wound, 3rd toe necrosis ORDER NUMBER(s): [id number], ACCESSION NUMBER(s): [id number] CLINICAL INDICATION: foot wound, 3rd toe necrosis TECHNIQUE: 2 radiographic views of the right foot were obtained. Comparison: XY R FOOT 3 VIEW XRAY on DOS: 08/03/24, XY L FOOT 3 VIEW XRAY on DOS: 08/03/24 FINDINGS/IMPRESSION: Amputation of the distal half of the 1st and 2nd toes from the mid metatarsals. The visualized joint space is well maintained. The alignment is anatomical. There is no radiopaque foreign body. HS:Y EDURE(s): LFOT2 - L FOOT 2 VIEW XRAY REASON: great and second toe wound infection ORDER NUMBER(s): [id number], ACCESSION NUMBER(s): [id number] CLINICAL INDICATION: great and second toe wound infection TECHNIQUE: 2 radiographic views of the left foot were obtained. Comparison: XY R FOOT 3 VIEW XRAY on DOS: 08/03/24, XY L FOOT 3 VIEW XRAY on DOS: 08/03/24 FINDINGS/IMPRESSION: There is no evidence of acute fracture or dislocation. If osteomyelitis is of clinical concern recommend MRI. The visualized joint space is well maintained. The alignment is anatomical. There is no radiopaque foreign body. HS:Y EDURE(s): BLDVT - BiLat Lower DVT REASON: ble edema ORDER NUMBER(s): [id number], ACCESSION NUMBER(s): [id number] CLINICAL HISTORY: Bilateral lower extremity edema. COMPARISON: None TECHNIQUE: Bilateral lower extremity venous duplex exam was performed. Grayscale, color flow, and spectral waveform analysis was performed. The deep veins of the lower extremity were evaluated for compression, phasic flow, and augmentation. Color flow and spectral waveform analysis were performed. FINDINGS: This examination demonstrates normal compression, augmentation, and phasic flow of both lower extremities. Right common femoral vein and common femoral/ greater saphenous junction not visualized due to overlying bandage material in the inguinal region. Otherwise, evidence for thrombus within the bilateral common femoral, femoral, and popliteal veins. In addition, the calf veins demonstrated normal compression and color flow. IMPRESSION: 1. There is no evidence for DVT in either lower extremity. 2. Right common femoral vein and right common femoral/ greater saphenous junction not able to be evaluated due to overlying bandage material in the right inguinal region. EDURE(s): BLEAD - BiLat Low Ext Art Duplex REASON: bilateral toe necrosis ORDER NUMBER(s): [id number], ACCESSION NUMBER(s): [id number] EXAM: US BILAT LOW EXT ART DUPLEX HISTORY: bilateral toe necrosis COMPARISON: US BILAT LOW EXT ART DUPLEX on DOS: 08/03/24 TECHNIQUE: Real-time grayscale and color Doppler images of the bilateral lower extremities were obtained with spectral waveform analysis. Findings: Arterial peak systolic velocities reported in units of centimeters per second (cm/sec): Right side: Common femoral - not visualized Profunda - not visualized Proximal SFA - occluded Mid SFA - stent occluded Distal SFA - not visualized Popliteal - 35 Posterior tibial - 14 Dorsalis pedis - not visualized Monophasic waveforms. Left side: Common femoral - 157 Profunda - 126 Proximal SFA - 47 Mid SFA - occluded Distal SFA - occluded Popliteal - 40 Posterior tibial - 18 Dorsalis pedis - not visualized Diffuse multiphasic waveforms with the exception of the popliteal and posterior tibial arteries which are monophasic. IMPRESSION: 1. Right proximal and mid superficial femoral arteries are occluded. 2. Left mid and distal superficial femoral arteries are occluded. Critical Result: Vascular occlusion Findings discussed with JESE ARTEAGA at 08/21/2024 05:00 PM, and acknowledged receipt and understanding of the findings. X-Ray, Labs, Meds, VS Comment 69-year-old female with history of diabetes, dyslipidemia and peripheral vasc ular disease brought in by EMS from [facility] for evaluation of bilateral foot pain and maggots noted in her left foot wound Vitals remarkable for BP 158/70 Exam remarkable for bilateral foot wounds with necrotic digits. Maggots noted within the left great and 2nd toe wounds. Rhythm strip independently interpreted by me: Sinus rhythm, rate 90, no ectopy. Bilateral foot x-rays: Unremarkable Bilateral lower extremity venous ultrasound negative for DVT Bilateral lower extremity arterial ultrasound IMPRESSION: 1. Right proximal and mid superficial femoral arteries are occluded. 2. Left mid and distal superficial femoral arteries are occluded. Critical Result: Vascular occlusion CBC remarkable for WBC 11.3, hemoglobin 7.5, hematocrit 23, platelets 906, basic metabolic panel remarkable, BNP and troponin negative, UA pending, lactate 2.7, blood and wound cultures pending Patient treated with the following in the ED: Bilateral foot wounds were irrigated with normal saline/Betadine solution under high pressure and redressed. Morphine 4 mg IV, Zofran 4 mg IV, Zosyn 4.5 g IV On re-evaluation, patient states pain has improved. Vitals were stable. Plan is to admit for IV antibiotics and vascular/surgical evaluation. Case discussed with Dr. Abernathy, who will admit the patient. Discussed with Dr. Randolph, who will consult. Time of 1ST Reevaluation: 16:31 Reevaluation 1ST: Improved Patient Education/Counseling: Diagnosis, Treatment, Need For Follow Up Family Education/Counseling: No Family Present Sepsis Sepsis Reasesment Focused Exam Sepsis focused exam: focus exam completed (BP stable, pain controlled), time: (1744) Departure 1 Departure Time of Disposition: 16:31 Impression: Primary Impression: Occlusion of stent of peripheral artery Qualified Codes: T82.599A - Other mechanical complication of unspecified cardiac and vascular devices and implants, initial encounter Additional Impressions: Arterial occlusion, lower extremity Wound infection Disposition: ADMITTED INPATIENT Condition: Guarded Critical Care Note Critical Care Time?: Yes (45 min-critical care time only) Critical care comment: Critical care time including multiple bedside re-evaluations, review of lab and imaging studies, and discussion of the case with the admitting provider. Patient is high risk for metabolic and/or hemodynamic decompensation. Stability Stability form required: No Heart Score Heart Score: Heart Score Response (Comments) Value History N/A 0 EKG N/A 0 Age N/A 0 Risk Factors N/A 0 Troponin N/A 0 Total 0 JESE ARTEAGA MD August 21, 2024 15:33
[2024-08-21] MEDS: PIPERACILLIN-TAZO 4.5GM 100 ML IV ONE (16:21)
[2024-08-21] MEDS: ONDANSETRON HCL 4 MG/2 ML VIAL IV ONE (16:21)
[2024-08-21] MEDS: MORPHINE SULFATE 4 MG/ML SYR/VIAL IV ONE (16:21)
--- NOTE | 2024-08-21 16:29 | DVH ---
CLINICAL HISTORY: Bilateral lower extremity edema. COMPARISON: None TECHNIQUE: Bilateral lower extremity venous duplex exam was performed. Grayscale, color flow, and spe ctral waveform analysis was performed. The deep veins of the lower extremity were evaluated for compr ession, phasic flow, and augmentation. Color flow and spectral waveform analysis were performed. FINDINGS: This examination demonstrates normal compression, augmentation, and phasic flow of both low er extremities. Right common femoral vein and common femoral/ greater saphenous junction not visualiz ed due to overlying bandage material in the inguinal region. Otherwise, evidence for thrombus within the bilateral common femoral, femoral, and popliteal veins. In addition, the calf veins demonstrated normal compression and color flow. IMPRESSION: 1. There is no evidence for DVT in either lower extremity. 2. Right common femoral vein and right common femoral/ greater saphenous junction not able to be eval uated due to overlying bandage material in the right inguinal region.
[2024-08-21 16:54] LABS: Basophils # (auto) 0.1 10 ^3/uL (0-0.2); Basophils % (auto) 0.7 % (0.0-2.0); Eosinophils # (auto) 0.3 10 ^3/uL (0-0.8); Eosinophils % (auto) 2.5 % (0.0-7.0); White Blood Cell 11.3 10^3/uL (4.4-10.8)
[2024-08-21 16:55] LABS: Hemoglobin 7.5 g/dL (12.2-16.2); Lymphocytes # (auto) 0.5 10 ^3/uL (0.4-5.4); Lymphocytes % (auto) 4.5 % (10.0-50.0); Mean Corpuscular Hemoglobin 25.1 pg (28.0-32.0); Mean Corpuscular Hgb Conc. 32.7 g/dL (32.0-36.0); Mean Corpuscular Volume 76.6 fL (80.0-100.0); Monocytes # (auto) 0.8 10 ^3/uL (0-1.3); Monocytes % (auto) 6.9 % (0.0-12.0); Neutrophils # (auto) 9.7 10 ^3/uL (1.6-8.6); Neutrophils % (auto) 85.4 % (37.0-80.0); Red Blood Cells 3.01 10^6/uL (4.0-5.20); Red Cell Distribution Width 15.2 % (11.8-14.3)
[2024-08-21 17:02] LABS: Platelet Count (auto) 906 10^3/uL (140-450)
--- NOTE | 2024-08-21 17:03 | DVH ---
EXAM: US BILAT LOW EXT ART DUPLEX HISTORY: bilateral toe necrosis COMPARISON: US BILAT LOW EXT ART DUPLEX on DOS: 08/03/24 TECHNIQUE: Real-time grayscale and color Doppler images of the bilateral lower extremities were obtai cristo with spectral waveform analysis. Findings: Arterial peak systolic velocities reported in units of centimeters per second (cm/sec): Right side: Common femoral - not visualized Profunda - not visualized Proximal SFA - occluded Mid SFA - stent occluded Distal SFA - not visualized Popliteal - 35 Posterior tibial - 14 Dorsalis pedis - not visualized Monophasic waveforms. Left side: Common femoral - 157 Profunda - 126 Proximal SFA - 47 Mid SFA - occluded Distal SFA - occluded Popliteal - 40 Posterior tibial - 18 Dorsalis pedis - not visualized Diffuse multiphasic waveforms with the exception of the popliteal and posterior tibial arteries whi ch are monophasic. IMPRESSION: 1. Right proximal and mid superficial femoral arteries are occluded. 2. Left mid and distal superficial femoral arteries are occluded. Critical Result: Vascular occlusion Findings discussed with JESE ARTEAGA at 08/21/2024 05:00 PM, and acknowledged receipt and understanding of the findings.
[2024-08-21 17:04] LABS: Chloride 100 mmol/L (98-107); Potassium 4.2 mmol/L (3.5-5.1); Sodium 137 mmol/L (136-145)
[2024-08-21 17:05] LABS: Anion Gap 12 (5-15); Carbon Dioxide 25 mmol/L (20-31)
[2024-08-21 17:06] LABS: Calcium 9.7 mg/dL (8.7-10.4)
[2024-08-21 17:10] LABS: BUN/Creatinine Ratio 9.7 (10.0-20.0)
[2024-08-21 17:11] LABS: INR 1.09 (0.9-1.15); Partial Thromboplastin Time 48.8 SEC (24.5-34.5); Prothrombin Time 11.5 sec (9.3-11.8)
[2024-08-21 17:15] LABS: Blood Urea Nitrogen 7 mg/dL (9-23); Glucose 157 mg/dL (74-106)
[2024-08-21 17:22] LABS: Lactic Acid w/Reflex 2.7 mmol/L (0.4-2.0)
--- NOTE | 2024-08-21 17:28 | DVH ---
CHEST RADIOGRAPH Indication: preop Technique: Single frontal view of the chest was obtained Comparison: XY CHEST XRAY 1 VIEW on DOS: 08/03/24 FINDINGS: Lines and Tubes: None Lungs: No focal consolidation. Decreased inspiratory effort when compared to 08/03/2024 Pleura: No effusion. No pneumothorax. Cardiomediastinal contours: Unremarkable Bones: No acute osseous abnormality. IMPRESSION: 1. Decreased inspiratory effort. HS:Y
--- NOTE | 2024-08-21 17:29 | DVH ---
CLINICAL INDICATION: foot wound, 3rd toe necrosis TECHNIQUE: 2 radiographic views of the right foot were obtained. Comparison: XY R FOOT 3 VIEW XRAY on DOS: 08/03/24, XY L FOOT 3 VIEW XRAY on DOS: 08/03/24 FINDINGS/IMPRESSION: Amputation of the distal half of the 1st and 2nd toes from the mid metatarsals. The visualized joint space is well maintained. The alignment is anatomical. There is no radiopaque foreign body. HS:Y
--- NOTE | 2024-08-21 17:31 | DVH ---
CLINICAL INDICATION: great and second toe wound infection TECHNIQUE: 2 radiographic views of the left foot were obtained. Comparison: XY R FOOT 3 VIEW XRAY on DOS: 08/03/24, XY L FOOT 3 VIEW XRAY on DOS: 08/03/24 FINDINGS/IMPRESSION: There is no evidence of acute fracture or dislocation. If osteomyelitis is of clinical concern recommend MRI. The visualized joint space is well maintained. The alignment is anatomical. There is no radiopaque foreign body. HS:Y
[2024-08-21 17:48] LABS: Platelet Estimate Markedly Increased
[2024-08-21] MEDS ORDERED: DOCUSATE SOD 100 MG CAP PO PRN (18:00)
[2024-08-21] MEDS: SODIUM CHLORIDE 0.9% 1,000 ML IV SCH (18:00)
[2024-08-21] MEDS ORDERED: VANCOMYCIN PER PHARMACY 0 MG IV SCH ×2 (18:00)
[2024-08-21] MEDS ORDERED: MORPHINE SULFATE INJ 2 MG/ml SYRG IV PRN (18:00)
[2024-08-21] MEDS ORDERED: NITROGLYCERIN 0.4 MG SL TAB SL PRN (18:00)
[2024-08-21] MEDS: SODIUM CHLORIDE 0.9% 2,000 ML IV ONE (19:04)
[2024-08-21] MEDS: VANCOMYCIN 1.75GM/350ML 350 ML IV ONE (19:04)
[2024-08-21 19:46] VITALS: PULSE 112; RESP 14; O2SAT 98
[2024-08-21] MEDS: MORPHINE SULFATE INJ 2 MG/ml SYRG IV PRN (20:00)
[2024-08-21 21:00] VITALS: BP 152/57; PULSE 116; RESP 20; TEMP 99.1; O2SAT 100
[2024-08-21] MEDS: HYDROcodone-ACET 5/325MG TAB PO PRN (21:04)
[2024-08-21 21:46] VITALS: BP 152/57; PULSE 96; RESP 17; RESP 20; TEMP 99.7; O2SAT 100; O2SAT 98
[2024-08-21] MEDS: PIPERACILLIN-TAZOB 3.375GM 100 ML IV SCH (21:46)
[2024-08-22] VITALS (8 sets, daily range): BP systolic 129–151; BP diastolic 58–75; PULSE 61–112; RESP 16–21; TEMP 98.2–98.9; O2SAT 96–100
--- NOTE | 2024-08-22 01:52 | DVHHP2 ---
Admitting Diagnosis: Left foot wound History of Present Illness History Source: Patient Exam Limitations: No limitations HPI Mrs. Becka Mancera is a 69-year-old female with a history of DM, hypertension, GERD, chronic bilateral lower extremity wounds, who [facility] for [facility] of a left foot wound and bilateral foot pain. Patient states her foot dressings were being changed today by facility staff when maggots were noted within the left foot wound. Patient also notes a foul odor coming from the wound. She states she is scheduled for surgery on her right foot here tomorrow by Dr. Randolph. She also notes worsening bilateral leg edema and worsening bilateral chronic foot pain. She denies any fever, chest pain or shortness of breath. Home Meds Reported Medications Ondansetron HCl (Ondansetron) 4 Mg Tab, 4 MG PO DAILY, TAB 08/18/24 Nitroglycerin (NTROSTAT SUBLINGUAL) 0.4 Mg Sl, 0.4 MG SL PRN, TAB *MAY REPEAT EVERY 5 MINUTES X 3 TOTAL IF NO RELIEF, INITIATE ANALGESIC THERAPY. NOTIFY PHYSICIAN *Do not crush. 08/18/24 Magnesium Hydroxide (Milk of Magnesia 400 mg/5Ml) 1 Selma Selma, 1 SELMA PO PRN, ML 08/18/24 Melatonin (KP MELATONIN) 3 Mg Tab, 10 MG PO HS, TAB 08/18/24 Insulin Lispro (Insulin Lispro) 100 Unit/Ml Inj, 100 UNIT IJ DAILY@BREAKFAST, INJ 08/18/24 Hydrocodone-Acetaminophen (Hydrocodone/Acetaminophen 10-325 mg) 1 Tab Tab, 1 TAB PO PRN, TAB 08/18/24 Bisacodyl (Dulcolax) 10 Mg Sup, 10 MG RE, SUPP 08/18/24 Docusate Sodium (Sb Docusate Sodium) 100 Mg Cap, 100 MG PO DAILY, CAP 08/18/24 Docusate Sodium (Colace) 100 Mg Cap, 100 MG PO DAILY, CAP 08/18/24 Atorvastatin Calcium (ATORVASTATIN CALCIUM) 40 Mg Tab, 40 MG PO DAILY, TAB 08/18/24 Acetaminophen (Acetaminophen) 160 Mg/5 Ml Monalisa, 325 MG PO DAILY, ML 08/18/24 Aspirin (Aspirin Low Dose) 81 Mg Chw, 81 MG PO DAILY, TAB.CHEW 08/18/24 Insulin Glargine (Insulin Glargine Solostar) 300 Unit/Ml Inj, 50 UNIT SC QAM for 27 Days, #4.5 08/04/24 Clopidogrel Bisulfate (CLOPIDOGREL) 75 Mg Tab, 1 TAB PO DAILY for 90 Days, #90 08/04/24 Past Medical History Cardiac: HTN Pulmonary: No pertinent Hx Central Nervous System: No pertinent Hx GI: GERD Hemotology/Oncology: No pertinent Hx Hepatobiliary: No pertinent Hx Psychiatric: No pertinent Hx Musculoskeletal: No pertinent Hx Rheumotologic: No pertinent Hx Infectious Disease: No peritnent Hx ENT: No pertinent Hx Renal/: No pertinent Hx Endocrine: NIDDM Dermatology: No pertinent Hx Others chronic BLE wounds Patient Family History: Patient reports no known family medical history. Smoker: No Hx (Negative) Alocohol: None Drugs: None Lives with: Residential Domestic Violence: Neg Review of Systems Constitutional: No symptom reported Ears, Nose, & Throat: No symptom reported Eyes: No symptom reported Pulmonary/Respiratory: No symptom reported Cardiovascular: No symptom reported Gastrointestinal: No symptom reported Genitourinary: No symptom reported Musculoskeletal: No symptom reported Skin: No symptom reported Psychiatric: No symptom reported Endocrine: No symptom reported Hemotologic/Lymphatic: No symptom reported All Other Systems Left foot wound pain, foul smell H&P Exam Vital Signs Vital Signs Date Time Temp Pulse Resp B/P (MAP) Pulse Ox O2 Delivery O2 Flow Rate FiO2 08/22/24 00:27 108 18 158/69 08/21/24 21:46 99.7 98 99.7 08/21/24 19:46 Room Air* 0 21 General Appeara: Well developed, Well nourished, Normal Appearance Head Exam: Normal inspection Neck Exam: Normal inspection, Non-tender, Normal alignment Eye Exam: bilateral eye Normal inspection, bilateral eye PERRL, bilateral eye EOMI Ear Exam: bilateral ear Auricle normal Nasal Exam: Normal inspection Mouth: Normal Inspection Pulmonary/Respiratory: Normal inspection, Normal breath sounds, Chest non- tender, Lungs clear Cardiovascular/Chest: Normal inspection, Regular rate, Normal Rhythm Peripheral Pulses: 2+ Radial (R), 2+ Radial (L) Abdominal Exam: Normal bowel sounds, Soft Rectal Exam: Deferred Foot: bilateral foot pain, bilateral foot soft tissue tenderness 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: Normal hearing, Normal speech, PERRL Neuro/Mental St: Alert, Oriented Appearance: Appropriate appearance, Appropriate insight Eye contact/ Speech: Cooperative, Good eye contact, Normal speech Skin Exam: Normal inspection, Normal color, Warm/dry, Other (bilateral foot wounds) Wounds bilateral foot wounds Labs/Xrays Labs Test 08/21/24 18:06 08/21/24 16:41 Range/Units Lactic Acid Level 1.7 0.4-2.0 mmol/L Troponin I High Sensitivity < 3 L </=34 ng/L White Blood Count 11.3 H 4.4-10.8 10^3/uL Red Blood Count 3.01 L 4.0-5.20 10^6/uL Hemoglobin 7.5 L 12.2-16.2 g/dL Hematocrit 23.0 L 36.0-46.0 % Mean Corpuscular Volume 76.6 L 80.0-100.0 fL Mean Corpuscular Hemoglobin 25.1 L 28.0-32.0 pg Mean Corpuscular Hemoglobin Concent 32.7 32.0-36.0 g/dL Red Cell Distribution Width 15.2 H 11.8-14.3 % Platelet Count 906 *H 140-450 10^3/uL Mean Platelet Volume 6.8 L 6.9-10.8 fL Neutrophils (%) (Auto) 85.4 H 37.0-80.0 % Lymphocytes (%) (Auto) 4.5 L 10.0-50.0 % Monocytes (%) (Auto) 6.9 0.0-12.0 % Eosinophils (%) (Auto) 2.5 0.0-7.0 % Basophils (%) (Auto) 0.7 0.0-2.0 % Neutrophils # (Auto) 9.7 H 1.6-8.6 10 ^3/uL Lymphocytes # (Auto) 0.5 0.4-5.4 10 ^3/uL Monocytes # (Auto) 0.8 0-1.3 10 ^3/uL Eosinophils # (Auto) 0.3 0-0.8 10 ^3/uL Basophils # (Auto) 0.1 0-0.2 10 ^3/uL Nucleated Red Blood Cells 0.0 % Platelet Estimate Markedly increased Microcytosis Slight Prothrombin Time 11.5 9.3-11.8 sec Prothrombin Time INR 1.09 0.9-1.15 Activated Partial Thromboplast Time 48.8 H 24.5-34.5 SEC Sodium Level 137 136-145 mmol/L Potassium Level 4.2 3.5-5.1 mmol/L Chloride Level 100 98-107 mmol/L Carbon Dioxide Level 25 20-31 mmol/L Anion Gap 12 5-15 Blood Urea Nitrogen 7 L 9-23 mg/dL Creatinine 0.72 0.550-1.02 mg/dL Glomerular Filtration Rate Calc 90 >90 mL/min BUN/Creatinine Ratio 9.7 L 10.0-20.0 Serum Glucose 157 H 74-106 mg/dL Calcium Level 9.7 8.7-10.4 mg/dL B-Type Natriuretic Peptide 27.24 0-100 pg/mL Assessment/Plan Problem List: (1) Wound infection (2) Occlusion of stent of peripheral artery Plan This is a 69 yo female with known history of DM, GERD, hypertension, bilateral lower extremity chronic wounds, PAD who presents to the hospital with left foot wound worsening. Patient found to have 1. Left foot wound 2. Right SFA stent occluded 3. Hypertension 4. DM 5. GERD Plan Admit Telemetry Vascular surgeon consultation Infectious Disease consultation, IV antibiotics IV fluids NS DVT ppx Lovenox SC NPO Discussed all above with patient who verbalized agreement and understanding of care plan. All questions were answered. Discussed care plan with nurse Erika MONTEZ. Discussed with admitting /supervising MD. Plan discussed with: Patient, Other Code Visit Code Visit Total Time (mins): 45 Additional Comments Additional Comments Additional Comments 69-year-old female with a known history of diabetes mellitus type 2 currently diet controlled, hypertension, severe peripheral vascular disease status post previous bilateral foot surgery presented to the hospital with a foot wound maggots as able as right foot wound found to have 1. Bilateral foot wound status post transmetatarsal amputation of bilateral feet 2. Severe peripheral vascular disease 4. diabetes mellitus type 2 diet controlled -continue IV antibiotics, follow up vascular surgery and Cardiology recommendations ALBERTO SMITH August 22, 2024 01:52 YUNIER JON MD August 22, 2024 16:22
--- NOTE | 2024-08-22 06:20 | ECG ---
[facility] Test Date: 2024-08-22 Test Time: 06:11:21 Pat Name: SARITA GOODMAN Department: Respiratoy Room: 0235T A Gender: F Molding Manager: : [id number] Requested By: HOWIE SOARES Order Number: [id number] Reading MD: Marty Barron Measurements Intervals [place] Rate: 104 P: 67 [place]: 138 QRS: -2 QRSD: 87 T: 25 QT: 335 QTc: 441 Interpretive Statements Sinus tachycardia Probable left atrial enlargement Electronically Signed On 08-24-2024 11:57:43 PDT by Marty Barron Please click the below link to view image of tracing.
[2024-08-22 06:59] LABS: Alanine Aminotransferase 14 U/L (7-40); Alkaline Phosphatase 106 U/L (46-116); Anion Gap 9 (5-15); BUN/Creatinine Ratio 7.6 (10.0-20.0); Basophils # (auto) 0.1 10 ^3/uL (0-0.2); Blood Urea Nitrogen < 5 mg/dL (9-23); Calcium 9.5 mg/dL (8.7-10.4); Carbon Dioxide 25 mmol/L (20-31); Chloride 101 mmol/L (98-107); Glucose 167 mg/dL (74-106); Lymphocytes # (auto) 0.6 10 ^3/uL (0.4-5.4); Mean Corpuscular Hemoglobin 25.3 pg (28.0-32.0); Mean Corpuscular Hgb Conc. 32.3 g/dL (32.0-36.0); Mean Corpuscular Volume 78.3 fL (80.0-100.0); Monocytes # (auto) 1.1 10 ^3/uL (0-1.3); Sodium 135 mmol/L (136-145); Total Protein 7.3 g/dL (5.7-8.2)
[2024-08-22 07:00] LABS: Albumin 3.6 g/dL (3.2-4.8); Aspartate Aminotransferase 17 U/L (13-40); Bilirubin, Total 0.3 mg/dL (0.2-1.0)
[2024-08-22 07:05] LABS: Basophils % (auto) 0.8 % (0.0-2.0); Eosinophils # (auto) 0.3 10 ^3/uL (0-0.8); Eosinophils % (auto) 3.5 % (0.0-7.0); Hematocrit 24.4 % (36.0-46.0); Hemoglobin 7.9 g/dL (12.2-16.2); Lymphocytes % (auto) 5.7 % (10.0-50.0); Monocytes % (auto) 11.6 % (0.0-12.0); Neutrophils # (auto) 7.7 10 ^3/uL (1.6-8.6); Neutrophils % (auto) 78.4 % (37.0-80.0); Red Blood Cells 3.11 10^6/uL (4.0-5.20); Red Cell Distribution Width 15.2 % (11.8-14.3); White Blood Cell 9.8 10^3/uL (4.4-10.8)
[2024-08-22 07:23] LABS: Platelet Count (auto) 765 10^3/uL (140-450)
--- NOTE | 2024-08-22 07:35 | DVHCONRES ---
Date Seen: August 22, 2024 Resident Creating Document: HOWIE SOARES Jr., MD Referring Physician Dr. Abernathy Reason for Consultation Bilateral peripheral vascular disease and chronic wounds bilaterally History of Present Illness Mrs. Becka Mancera is a 69-year-old female with a history of DM, hypertension, GERD, chronic bilateral lower extremity wounds, who presents from a [facility]-way facility for evaluation of a left foot wound and bilateral foot pain. Patient states her foot dressings were being changed today by facility staff when maggots were noted within the left foot wound. Patient also notes a foul odor coming from the wound. She also notes worsening bilateral leg edema and worsening bilateral chronic foot pain. She denies any fever, chest pain or shortness of breath. Patient was scheduled for surgery today. Patient was admitted overnight due to findings of maggots in the left foot. Based on exam and patient believes she agrees to have a transmetatarsal amputation bilaterally. Past Medical History Diabetes hypertension and severe peripheral vascular disease Past Surgical History Right fem-pop bypass, bilateral SFA angioplasty and stenting. Right finger amputation right arm bypass. Family History: Patient reports no known family medical history. Social History Former smoker uses marijuana daily Allergies: Coded Allergies: NO KNOWN ALLERGIES (Unverified , 08/03/24) Home Meds Reported Medications Ondansetron HCl (Ondansetron) 4 Mg Tab, 4 MG PO DAILY, TAB 08/18/24 Nitroglycerin (NTROSTAT SUBLINGUAL) 0.4 Mg Sl, 0.4 MG SL PRN, TAB *MAY REPEAT EVERY 5 MINUTES X 3 TOTAL IF NO RELIEF, INITIATE ANALGESIC THERAPY. NOTIFY PHYSICIAN *Do not crush. 08/18/24 Magnesium Hydroxide (Milk of Magnesia 400 mg/5Ml) 1 Selma Selma, 1 SELMA PO PRN, ML 08/18/24 Melatonin (KP MELATONIN) 3 Mg Tab, 10 MG PO HS, TAB 08/18/24 Insulin Lispro (Insulin Lispro) 100 Unit/Ml Inj, 100 UNIT IJ DAILY@BREAKFAST, INJ 08/18/24 Hydrocodone-Acetaminophen (Hydrocodone/Acetaminophen 10-325 mg) 1 Tab Tab, 1 TAB PO PRN, TAB 08/18/24 Bisacodyl (Dulcolax) 10 Mg Sup, 10 MG RE, SUPP 08/18/24 Docusate Sodium (Sb Docusate Sodium) 100 Mg Cap, 100 MG PO DAILY, CAP 5/8/25 Docusate Sodium (Colace) 100 Mg Cap, 100 MG PO DAILY, CAP 08/18/24 Atorvastatin Calcium (ATORVASTATIN CALCIUM) 40 Mg Tab, 40 MG PO DAILY, TAB 08/18/24 Acetaminophen (Acetaminophen) 160 Mg/5 Ml Monalisa, 325 MG PO DAILY, ML 08/18/24 Aspirin (Aspirin Low Dose) 81 Mg Chw, 81 MG PO DAILY, TAB.CHEW 08/18/24 Insulin Glargine (Insulin Glargine Solostar) 300 Unit/Ml Inj, 50 UNIT SC QAM for 27 Days, #4.5 08/04/24 Clopidogrel Bisulfate (CLOPIDOGREL) 75 Mg Tab, 1 TAB PO DAILY for 90 Days, #90 08/04/24 Current Medications Current Medications Medications (Trade) Dose Ordered Sig/Linda Route PRN Reason Start Time Stop Time Status Last Admin Vancomycin HCl 0 ml @ 0 mls/hr UD IV 08/21/24 18:00 08/21/24 18:07 DC Sodium Chloride 1,000 ml @ 120 mls/hr Q8H20M IV 08/21/24 18:00 08/22/24 02:20 Acetaminophen/ Hydrocodone Bitart (Vanduser 5/325MG Tab) 1 tab Q4HP PRN PO MODERATE PAIN (4-6 PAIN SCALE) 08/21/24 18:00 08/22/24 06:18 Ondansetron HCl (Zofran) 4 mg Q4HP PRN IV NAUSEA / VOMITING 08/21/24 18:00 Docusate Sodium (Colace Capsule) 100 mg BIDPRN PRN PO FOR CONSTIPATION 08/21/24 18:00 Enoxaparin Sodium (Lovenox) 40 mg DAILY SC 08/22/24 10:00 Acetaminophen (Tylenol Tablet) 650 mg Q6HP PRN PO PAIN SCALE 1-3 OR TEMP>100.4 08/21/24 18:00 Morphine Sulfate 2 mg Q4HPRN PRN IV SEVERE PAIN (7-10 PAIN SCALE) 08/21/24 18:00 08/22/24 00:27 Nitroglycerin (Ntrostat Sublingual) 0.4 mg Q5MINP PRN SL FOR CHEST PAIN 08/21/24 18:00 Morphine Sulfate 2 mg Q30M PRN IV FOR CHEST PAIN 08/21/24 18:00 Vancomycin HCl 0 ml @ 0 mls/hr UD IV 08/21/24 18:00 Piperacillin Sod/ Tazobactam Sod 100 ml @ 25 mls/hr Q6H IV 08/21/24 21:00 08/22/24 03:07 Vital Signs Vital Signs Date Time Temp Pulse Resp B/P (MAP) Pulse Ox O2 Delivery O2 Flow Rate FiO2 08/22/24 05:00 98.4 94 17 151/75 (100) 99 98.4 08/21/24 21:46 Room Air* 0 21 Physical Exam Head eyes ears nose and throat exam eyes are nonicteric conjunctiva is pink neck was supple no JVD no lymphadenopathy no carotid bruits lungs are clear to auscultation heart was regular rate and rhythm abdomen is soft nontender with no pulsatile abdominal masses or bruits lower extremities palpable femoral pulses bilaterally a right groin incision as well as the supra popliteal incision both are healing with bijal right foot open necrotic for 2nd toe amputation as well as the left side has a 2nd 3rd and 4th toe dry gangrene with maggots present. Labs/Diagnostic Data Labs Test 08/22/24 05:41 08/21/24 18:06 08/21/24 16:41 Range/Units White Blood Count 9.8 4.4-10.8 10^3/uL Red Blood Count 3.11 L 4.0-5.20 10^6/uL Hemoglobin 7.9 L 12.2-16.2 g/dL Hematocrit 24.4 L 36.0-46.0 % Mean Corpuscular Volume 78.3 L 80.0-100.0 fL Mean Corpuscular Hemoglobin 25.3 L 28.0-32.0 pg Mean Corpuscular Hemoglobin Concent 32.3 32.0-36.0 g/dL Red Cell Distribution Width 15.2 H 11.8-14.3 % Platelet Count 765 *H 140-450 10^3/uL Mean Platelet Volume 7.1 6.9-10.8 fL Neutrophils (%) (Auto) 78.4 37.0-80.0 % Lymphocytes (%) (Auto) 5.7 L 10.0-50.0 % Monocytes (%) (Auto) 11.6 0.0-12.0 % Eosinophils (%) (Auto) 3.5 0.0-7.0 % Basophils (%) (Auto) 0.8 0.0-2.0 % Neutrophils # (Auto) 7.7 1.6-8.6 10 ^3/uL Lymphocytes # (Auto) 0.6 0.4-5.4 10 ^3/uL Monocytes # (Auto) 1.1 0-1.3 10 ^3/uL Eosinophils # (Auto) 0.3 0-0.8 10 ^3/uL Basophils # (Auto) 0.1 0-0.2 10 ^3/uL Nucleated Red Blood Cells 0.0 % Sodium Level 135 L 136-145 mmol/L Potassium Level 4.0 3.5-5.1 mmol/L Chloride Level 101 98-107 mmol/L Carbon Dioxide Level 25 20-31 mmol/L Anion Gap 9 5-15 Blood Urea Nitrogen < 5 L 9-23 mg/dL Creatinine 0.66 0.550-1.02 mg/dL Glomerular Filtration Rate Calc 95 >90 mL/min BUN/Creatinine Ratio 7.6 L 10.0-20.0 Serum Glucose 167 H 74-106 mg/dL Calcium Level 9.5 8.7-10.4 mg/dL Total Bilirubin 0.3 0.2-1.0 mg/dL Aspartate Amino Transferase (AST) 17 13-40 U/L Alanine Aminotransferase (ALT) 14 7-40 U/L Alkaline Phosphatase 106 46-116 U/L Total Protein 7.3 5.7-8.2 g/dL Albumin 3.6 3.2-4.8 g/dL Lactic Acid Level 1.7 0.4-2.0 mmol/L Troponin I High Sensitivity < 3 L </=34 ng/L Platelet Estimate Markedly increased Microcytosis Slight Prothrombin Time 11.5 9.3-11.8 sec Prothrombin Time INR 1.09 0.9-1.15 Activated Partial Thromboplast Time 48.8 H 24.5-34.5 SEC B-Type Natriuretic Peptide 27.24 0-100 pg/mL Assessment Severe peripheral vascular disease. We will plan on performing bilateral transmetatarsal amputations 2 day Continue with medical management We will require rehabilitation afterwards. Plan/Recommendation Severe peripheral vascular disease. We will plan on performing bilateral transmetatarsal amputations 2 day Continue with medical management We will require rehabilitation afterwards. Plan discussed with: Patient HOWIE SOARES Jr., MD August 22, 2024 07:35
[2024-08-22] MEDS: ENOXAPARIN SOD 40 MG/0.4 ML SYRINGE SC SCH (08:51)
[2024-08-22] MEDS ORDERED: fentaNYL CITRATE 100 MCG/2 ML VL ONE ×2 (11:03→12:04)
[2024-08-22] MEDS ORDERED: HYDROmorphone HCL 2 MG/ML VL/or syr ONE (12:04)
--- NOTE | 2024-08-22 12:36 | DVHINCON2 ---
Date of service: August 22, [address] Abernathy Reason for Consultation foot infection History of Present Illness Patient is a 69-year-old female with a history of Diabetes Mellitus presents to the hospital from a [facility] for evaluation of a left foot wound and bilateral foot pain. Patient states her foot dressings were being changed yesterday by facility staff when maggots were noted within the left foot wound. Patient also notes a foul odor coming from the wound. s/p surgery by vascular today underwent transmetatarsal amputation bilaterally.. ID is consulted for abx Past Medical History Patient's Past medical history is significant for hypertension, GERD, chronic bilateral lower extremity wounds and Diabetes Mellitus. Family History: Patient reports no known family medical history. Social History Smoker: No Hx (Negative) Alcohol: None Drugs: None Lives with: Correction Domestic Violence: Neg Allergies: Coded Allergies: NO KNOWN ALLERGIES (Unverified , 08/03/24) Home Meds Reported Medications Ondansetron HCl (Ondansetron) 4 Mg Tab, 4 MG PO DAILY, TAB 08/18/24 Nitroglycerin (NTROSTAT SUBLINGUAL) 0.4 Mg Sl, 0.4 MG SL PRN, TAB *MAY REPEAT EVERY 5 MINUTES X 3 TOTAL IF NO RELIEF, INITIATE ANALGESIC THERAPY. NOTIFY PHYSICIAN *Do not crush. 08/18/24 Magnesium Hydroxide (Milk of Magnesia 400 mg/5Ml) 1 Selma Selma, 1 SELMA PO PRN, ML 08/18/24 Melatonin (KP MELATONIN) 3 Mg Tab, 10 MG PO HS, TAB 08/18/24 Insulin Lispro (Insulin Lispro) 100 Unit/Ml Inj, 100 UNIT IJ DAILY@BREAKFAST, INJ 08/18/24 Hydrocodone-Acetaminophen (Hydrocodone/Acetaminophen 10-325 mg) 1 Tab Tab, 1 TAB PO PRN, TAB 08/18/24 Bisacodyl (Dulcolax) 10 Mg Sup, 10 MG RE, SUPP 08/18/24 Docusate Sodium (Sb Docusate Sodium) 100 Mg Cap, 100 MG PO DAILY, CAP 08/18/24 Docusate Sodium (Colace) 100 Mg Cap, 100 MG PO DAILY, CAP 08/18/24 Atorvastatin Calcium (ATORVASTATIN CALCIUM) 40 Mg Tab, 40 MG PO DAILY, TAB 08/18/24 Acetaminophen (Acetaminophen) 160 Mg/5 Ml Monalisa, 325 MG PO DAILY, ML 08/18/24 Aspirin (Aspirin Low Dose) 81 Mg Chw, 81 MG PO DAILY, TAB.CHEW 08/18/24 Insulin Glargine (Insulin Glargine Solostar) 300 Unit/Ml Inj, 50 UNIT SC QAM for 27 Days, #4.5 08/04/24 Clopidogrel Bisulfate (CLOPIDOGREL) 75 Mg Tab, 1 TAB PO DAILY for 90 Days, #90 08/04/24 Current Medications Current Medications Medications (Trade) Dose Ordered Sig/Linda Route PRN Reason Start Time Stop Time Status Last Admin Vancomycin HCl 0 ml @ 0 mls/hr UD IV 08/21/24 18:00 08/21/24 18:07 DC Sodium Chloride 1,000 ml @ 120 mls/hr Q8H20M IV 08/21/24 18:00 08/22/24 09:00 Acetaminophen/ Hydrocodone Bitart ([place] 5/325MG Tab) 1 tab Q4HP PRN PO MODERATE PAIN (4-6 PAIN SCALE) 08/21/24 18:00 08/22/24 06:18 Ondansetron HCl (Zofran) 4 mg Q4HP PRN IV NAUSEA / VOMITING 08/21/24 18:00 Docusate Sodium (Colace Capsule) 100 mg BIDPRN PRN PO FOR CONSTIPATION 08/21/24 18:00 Enoxaparin Sodium (Lovenox) 40 mg DAILY SC 08/22/24 10:00 Acetaminophen (Tylenol Tablet) 650 mg Q6HP PRN PO PAIN SCALE 1-3 OR TEMP>100.4 08/21/24 18:00 Morphine Sulfate 2 mg Q4HPRN PRN IV SEVERE PAIN (7-10 PAIN SCALE) 08/21/24 18:00 08/22/24 00:27 Nitroglycerin (Ntrostat Sublingual) 0.4 mg Q5MINP PRN SL FOR CHEST PAIN 08/21/24 18:00 Morphine Sulfate 2 mg Q30M PRN IV FOR CHEST PAIN 08/21/24 18:00 Vancomycin HCl 0 ml @ 0 mls/hr UD IV 08/21/24 18:00 Piperacillin Sod/ Tazobactam Sod 100 ml @ 25 mls/hr Q6H IV 08/21/24 21:00 08/22/24 08:51 Review of Systems General: No Fever, chills, night sweats or weight loss HEENT: No Sinus pain, headache, vision changes or sore throat Respiratory: No Cough, dyspnea, sputum production Cardiovascular: No Chest pain, palpitations or leg edema Gastrointestinal: No Nausea, vomiting, diarrhea, abdominal pain Genitourinary: No Dysuria, urinary frequency, hematuria, pelvic pain Skin: No Rashes, ulcers, abscesses, redness or swelling Musculoskeletal: Positive for Left foot wound pain, now s/p bilateral foot surgery Neurologic: No Altered mental status, headaches or focal neurological deficits Psychiatric: No Anxiety, depression or confusion Vital Signs Vital Signs Date Time Temp Pulse Resp B/P (MAP) Pulse Ox O2 Delivery O2 Flow Rate FiO2 08/22/24 09:00 98.8 79 20 132/58 (82) 96 98.8 08/22/24 07:46 Room Air* 0 21 Physical Exam General Appeara: Well developed, Well nourished, Normal Appearance Head Exam: Normal inspection Neck Exam: Normal inspection, Non-tender, Normal alignment Eye Exam: bilateral eye Normal inspection, bilateral eye PERRL, bilateral eye EOMI Ear Exam: bilateral ear Auricle normal Nasal Exam: Normal inspection Mouth: Normal Inspection Pulmonary/Respiratory: Normal inspection, Normal breath sounds, Chest non- tender, Lungs clear Cardiovascular/Chest: Normal inspection, Regular rate, Normal Rhythm Abdominal Exam: Normal bowel sounds, Soft Foot: bilateral foot pain, bilateral foot soft tissue tenderness BUS 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: Normal hearing, Normal speech, PERRL Neuro/Mental St: Alert, Oriented Appearance: Appropriate appearance, Appropriate insight Eye contact/ Speech: Cooperative, Good eye contact, Normal speech Skin Exam: Normal inspection, Normal color, Warm/dry, Other (bilateral foot wounds) Labs/Diagnostic Data Labs Test 08/22/24 05:41 08/21/24 18:06 08/21/24 16:41 Range/Units White Blood Count 9.8 4.4-10.8 10^3/uL Red Blood Count 3.11 L 4.0-5.20 10^6/uL Hemoglobin 7.9 L 12.2-16.2 g/dL Hematocrit 24.4 L 36.0-46.0 % Mean Corpuscular Volume 78.3 L 80.0-100.0 fL Mean Corpuscular Hemoglobin 25.3 L 28.0-32.0 pg Mean Corpuscular Hemoglobin Concent 32.3 32.0-36.0 g/dL Red Cell Distribution Width 15.2 H 11.8-14.3 % Platelet Count 765 *H 140-450 10^3/uL Mean Platelet Volume 7.1 6.9-10.8 fL Neutrophils (%) (Auto) 78.4 37.0-80.0 % Lymphocytes (%) (Auto) 5.7 L 10.0-50.0 % Monocytes (%) (Auto) 11.6 0.0-12.0 % Eosinophils (%) (Auto) 3.5 0.0-7.0 % Basophils (%) (Auto) 0.8 0.0-2.0 % Neutrophils # (Auto) 7.7 1.6-8.6 10 ^3/uL Lymphocytes # (Auto) 0.6 0.4-5.4 10 ^3/uL Monocytes # (Auto) 1.1 0-1.3 10 ^3/uL Eosinophils # (Auto) 0.3 0-0.8 10 ^3/uL Basophils # (Auto) 0.1 0-0.2 10 ^3/uL Nucleated Red Blood Cells 0.0 % Sodium Level 135 L 136-145 mmol/L Potassium Level 4.0 3.5-5.1 mmol/L Chloride Level 101 98-107 mmol/L Carbon Dioxide Level 25 20-31 mmol/L Anion Gap 9 5-15 Blood Urea Nitrogen < 5 L 9-23 mg/dL Creatinine 0.66 0.550-1.02 mg/dL Glomerular Filtration Rate Calc 95 >90 mL/min BUN/Creatinine Ratio 7.6 L 10.0-20.0 Serum Glucose 167 H 74-106 mg/dL Calcium Level 9.5 8.7-10.4 mg/dL Total Bilirubin 0.3 0.2-1.0 mg/dL Aspartate Amino Transferase (AST) 17 13-40 U/L Alanine Aminotransferase (ALT) 14 7-40 U/L Alkaline Phosphatase 106 46-116 U/L Total Protein 7.3 5.7-8.2 g/dL Albumin 3.6 3.2-4.8 g/dL Lactic Acid Level 1.7 0.4-2.0 mmol/L Troponin I High Sensitivity < 3 L </=34 ng/L Platelet Estimate Markedly increased Microcytosis Slight Prothrombin Time 11.5 9.3-11.8 sec Prothrombin Time INR 1.09 0.9-1.15 Activated Partial Thromboplast Time 48.8 H 24.5-34.5 SEC B-Type Natriuretic Peptide 27.24 0-100 pg/mL Assessment Patient is a 69-year-old female presents to the hospital with: Left foot wound infection with maggots non healing wounds severe bilateral peripheral artery disease Right SFA stent occluded Diabetes mellitus Hypertension Recommendations: She is status post bilateral transmetatarsal amputation for vascular surgery due to severe peripheral vascular disease and nonhealing wounds. Discussed with Dr. Abernathy and vascular surgery Empirically continue IV Vancomycin and Zosyn for now, monitor vancomycin trough and creatinine Continue wound care Antibiotic Status: Vancomycin IV [Started on 08/21 - Ongoing] Zosyn IV [Started on 08/21 - Ongoing] Review of culture: 08/21, Blood culture preliminary showed no growth 08/22, MRSA Screening came back negative Review of Imagin/11, Foot x-ray showed Amputation of the distal half of the 1st and 2nd toes from the mid metatarsals. The visualized joint space is well maintained. The alignment is anatomical. There is no radiopaque foreign body. 08/21, Extremity venous study showed There is no evidence for DVT in either lower extremity. Right common femoral vein and right common femoral/ greater saphenous junction not able to be evaluated due to overlying bandage material in the right inguinal region. 08/21, Duplex Scan lower extremity artery showed Right proximal and mid superficial femoral arteries are occluded. Left mid and distal superficial femoral arteries are occluded. Prognosis guarded Thank you for consult. Plan discussed with: Patient, Other JARRETT JOSE MD August 22, 2024 12:35
[2024-08-22] MEDS ORDERED: LABETALOL HCL 5 MG/ML ML 20ML VIAL IV ONE (12:45)
--- NOTE | 2024-08-22 14:09 | DVHOP2 ---
Operative Report - 2 Report Details Date: 08/22/24 Preop Diagnosis: A nonhealing right 1st and 2nd toe amputation site, gangrene of the 2nd 3rd and 4th left toes. Postop Diagnosis: Same Surgeon: Abe Randolph MD Anesthesiologist: General endotracheal tube Anesthesia: General Consent: The patient was informed of the risks and benefits of the procedure. These include but are not limited to complications of anesthesia, postoperative infection, incomplete relief of symptoms, recurrence of symptoms, damage to blood vessels, nerves and tendons, deep venous thrombosis, pulmonary embolism and possible need for repeat surgery in the future. Estimated Blood Loss: Minimal Name of Procedure Performed Right transmetatarsal amputation, left transmetatarsal amputation Procedure Details Procedure Details: Patient was identified in the preop hold area is being Mrs. Mancera. She was consented and preopped by myself she was brought back to the operating room placed the operating table in supine position after adequate induction of anesthesia antibiotics and time-out. The right and left feet were prepped and draped in normal surgical fashion May transmetatarsal incision was made on the right side 1st which was high enough above the necrotic wound from the prior 1st and 2nd toe amputation the incision was made to allow for a posterior flap. However there was some necrotic tissue on the medial aspect which limited the amount of flap that could be produced. The metatarsal bones were skeletonized. They were cut with a bone saw and the specimen including toes and metatarsals were sent off for pathology. The wound was then irrigated out completely there was no further necrotic tissue the wound was began closure deep layers were closed with a 2-0 Vicryl sutures interruptedly followed by a dermal layer of 2-0 Vicryl sutures on the lateral aspects and several interrupted Prolene horizontal mattress sutures. The medial aspect of the wound was left open however the bone was able to be covered with muscle. The wound was then wrapped with a Kerlix and an Ivan wrap. Attention was then placed to the left foot where the 2nd 3rd and 4th toes were dry gangrene transmetatarsal amputation incision was made with allowing for a posterior flap the wound was opened with Bovie cauterization hemostasis was obtained the metatarsal bones were skeletonized. And they were cut with a bone saw the specimen was sent off for pathology the posterior flap of the wound was healthy and bleeding was controlled with hemostasis with Bovie cauterization. The wound was then closed by reapproximating the posterior flap to the dorsum of the foot. With this was done with interrupted 2-0 Vicryl sutures on the deep layer followed by a dermal layer of 2-0 Vicryl sutures followed by interrupted Prolene transverse mattress sutures were skin a sterile dressing was applied and the patient was taken to the PACU in stable condition sponge and needle counts were correct. Condition Good Disposition pacu ABE RANDOLPH Jr., MD August 22, 2024 14:09
[2024-08-22] MEDS: VANCOMYCIN 750MG KIT 100 ML IV SCH (17:33)
[2024-08-22] MEDS: ONDANSETRON HCL 4 MG/2 ML VIAL IV PRN (23:31)
[2024-08-23] VITALS (9 sets, daily range): BP systolic 146–162; BP diastolic 53–70; PULSE 72–119; RESP 16–21; TEMP 97.8–99.1; O2SAT 90–100
[2024-08-23] MEDS: KETOROLAC TROMETH 30 MG/ML 1ML VIAL IV ONE (12:41)
--- NOTE | 2024-08-23 12:43 | DVHPN2 ---
Progress Note - Dictate Date Seen: August 24, 2024 Medical Necessity Reason Pt with a Central, PICC or Fol: No Subjective No new acute complaints noted. vital signs Vital Sign Date Time Temp Pulse Resp B/P (MAP) Pulse Ox O2 Delivery O2 Flow Rate FiO2 08/23/24 09:32 125 20 168/62 08/23/24 09:00 98.5 100 98.5 08/23/24 08:05 Room Air* 0 21 Total Intake and Output 08/22/24 08/22/24 08/23/24 15:00 23:00 07:00 Intake Total 227 ml 200 ml 0 ml Output Total 1600 ml Balance 227 ml 200 ml -1600 ml medications Current Medications Medications Dose Ordered Sig/Linda Route Start Time Stop Time Status Last Admin Dose Admin Sodium Chloride 1,000 ml @ 120 mls/hr Q8H20M IV 08/21/24 18:00 08/22/24 09:00 120 MLS/HR Ondansetron HCl 4 mg Q4HP PRN IV 08/21/24 18:00 08/22/24 23:31 4 MG Docusate Sodium 100 mg BIDPRN PRN PO 08/21/24 18:00 Enoxaparin Sodium 40 mg DAILY SC 08/22/24 10:00 08/23/24 08:55 40 MG Acetaminophen 650 mg Q6HP PRN PO 08/21/24 18:00 Morphine Sulfate 2 mg Q4HPRN PRN IV 08/21/24 18:00 08/23/24 09:02 2 MG Nitroglycerin 0.4 mg Q5MINP PRN SL 08/21/24 18:00 Morphine Sulfate 2 mg Q30M PRN IV 08/21/24 18:00 Vancomycin HCl 0 ml @ 0 mls/hr UD IV 08/21/24 18:00 Piperacillin Sod/ Tazobactam Sod 100 ml @ 25 mls/hr Q6H IV 08/21/24 21:00 08/23/24 08:55 25 MLS/HR Vancomycin HCl 100 ml @ 100 mls/hr Q12H IV 08/22/24 17:00 08/23/24 05:13 100 MLS/HR Acetaminophen/ Hydrocodone Bitart 1 tab Q4HP PRN PO 08/23/24 11:30 objective General Appearance: Well developed, Well nourished, Normal Appearance Head Exam: Normal inspection Neck Exam: Normal inspection, Non-tender, Normal alignment Eye Exam: bilateral eye Normal inspection, bilateral eye PERRL, bilateral eye EOMI Ear Exam: bilateral ear Auricle normal Nasal Exam: Normal inspection Mouth: Normal Inspection Pulmonary/Respiratory: Normal inspection, Normal breath sounds, Chest non- tender, Lungs clear Cardiovascular/Chest: Normal inspection, Regular rate, Normal Rhythm Abdominal Exam: Normal bowel sounds, Soft Foot: s/p bilateral foot amputation at transmetatarsal 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: grossly intact Neuro/Mental St: Alert, Oriented Appearance: Appropriate appearance, Appropriate insight Eye contact/ Speech: Cooperative, Good eye contact, Normal speech Skin Exam: Normal inspection, Normal color, Warm/dry, Other (bilateral foot wounds) laboratory and microbiology Laboratory Tests 08/22/24 05:41 Test 08/22/24 05:41 Range/Units Serum Glucose 167 H 74-106 mg/dL Assessment/Plan Patient is a 69-year-old female presents to the hospital with: Left foot wound infection with maggots non healing wounds severe bilateral peripheral artery disease Right SFA stent occluded Diabetes mellitus Hypertension Recommendations: She is status post bilateral transmetatarsal amputation for vascular surgery due to severe peripheral vascular disease and nonhealing wounds. Empirically continue IV Vancomycin and Zosyn for now, monitor vancomycin trough and creatinine Continue wound care Follow OR cultures Antibiotic Status: Vancomycin IV [Started on 08/21 - Ongoing] Zosyn IV [Started on 08/21 - Ongoing] Review of culture: 08/21, Blood culture preliminary showed no growth 08/22, MRSA Screening came back negative Review of Imagin/11, Foot x-ray showed Amputation of the distal half of the 1st and 2nd toes from the mid metatarsals. The visualized joint space is well maintained. The alignment is anatomical. There is no radiopaque foreign body. 08/21, Extremity venous study showed There is no evidence for DVT in either lower extremity. Right common femoral vein and right common femoral/ greater saphenous junction not able to be evaluated due to overlying bandage material in the right inguinal region. 08/21, Duplex Scan lower extremity artery showed Right proximal and mid superficial femoral arteries are occluded. Left mid and distal superficial femoral arteries are occluded. Discussed with Dr. Michela ledesma Thank you for consult. Plan discussed with: JARRETT Clemons MD August 23, 2024 12:43
[2024-08-23] MEDS: HYDROcodone-ACET 10/325MG TAB PO PRN (14:23)
--- NOTE | 2024-08-23 16:08 | DVHPN2 ---
Subjective OVERNIGHT EVENTS NOTED. 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 Medications Current Medications Medications Dose Ordered Sig/Linda Route Start Time Stop Time Status Last Admin Dose Admin Sodium Chloride 1,000 ml @ 120 mls/hr Q8H20M IV 08/21/24 18:00 08/22/24 09:00 120 MLS/HR Ondansetron HCl 4 mg Q4HP PRN IV 08/21/24 18:00 08/22/24 23:31 4 MG Docusate Sodium 100 mg BIDPRN PRN PO 08/21/24 18:00 Enoxaparin Sodium 40 mg DAILY SC 08/22/24 10:00 08/23/24 08:55 40 MG Acetaminophen 650 mg Q6HP PRN PO 08/21/24 18:00 Morphine Sulfate 2 mg Q4HPRN PRN IV 08/21/24 18:00 08/23/24 09:02 2 MG Nitroglycerin 0.4 mg Q5MINP PRN SL 08/21/24 18:00 Morphine Sulfate 2 mg Q30M PRN IV 08/21/24 18:00 Vancomycin HCl 0 ml @ 0 mls/hr UD IV 08/21/24 18:00 Piperacillin Sod/ Tazobactam Sod 100 ml @ 25 mls/hr Q6H IV 08/21/24 21:00 08/23/24 15:24 25 MLS/HR Vancomycin HCl 100 ml @ 100 mls/hr Q12H IV 08/22/24 17:00 08/23/24 05:13 100 MLS/HR Acetaminophen/ Hydrocodone Bitart 1 tab Q4HP PRN PO 08/23/24 11:30 08/23/24 14:23 1 TAB Diagnostic Test (Pha) 1 strip ACHS 08/23/24 17:00 Laboratory Results Laboratory Tests 08/22/24 05:41 Microbiology Microbiology Date/Time Source Procedure Growth Status 08/22/24 00:40 Nose MRSA Screen - Final Complete 08/21/24 16:41 Blood Blood Culture - Preliminary NO GROWTH AFTER 24 HOURS OF INCUBATION. Resulted Assessment/Plan Assessment/Plan 69-year-old female with a known history of diabetes mellitus type 2 currently diet controlled, hypertension, severe peripheral vascular disease status post previous bilateral foot surgery presented to the hospital with a foot wound maggots as able as right foot wound found to have 1. Bilateral foot wound status post transmetatarsal amputation of bilateral feet 2. Severe peripheral vascular disease 4. diabetes mellitus type 2 diet controlled -CONTINUE PAIN MEDS, IV ANTIBIOTICS FOLLOW UP VASCULAR SURGERY AND INFECTIOUS DISEASE RECOMMENDATIONS Plan discussed with: Patient, Other My Orders Orders - YUNIER JON MD Procedure Category Date Status Time Consistent DIET 08/22/24 Transmitted Carb(Ccho)Diabetes Dinner Hydrocodone-Acet PHA 08/23/24 In Process 10/325mg Tab ([place] 11:30 Complete Blood Count LAB 08/24/24 Verified 04:00 Creatinine LAB 08/24/24 Verified 04:00 * Dietary Consult CONS 08/23/24 Transmitted 12:18 Glucose Blood PHA 08/23/24 In Process (Accu-Chek Comfort 17:00 Date of Service: August 23, 2024 Billing Provider: YUNIER JON MD Common Visit Codes: NOT BILLABLE YUNIER JON MD August 23, 2024 16:08
[2024-08-23] MEDS: ACCU-CHEK COMFORT CURVE STRIP VI SCH (17:00)
[2024-08-23 17:19] LABS: Basophils # (auto) 0.1 10 ^3/uL (0-0.2); Basophils % (auto) 0.7 % (0.0-2.0); Eosinophils # (auto) 0.1 10 ^3/uL (0-0.8); Eosinophils % (auto) 0.6 % (0.0-7.0); Hematocrit 25.2 % (36.0-46.0); Lymphocytes # (auto) 0.6 10 ^3/uL (0.4-5.4); Lymphocytes % (auto) 5.1 % (10.0-50.0); Mean Corpuscular Hemoglobin 24.6 pg (28.0-32.0); Mean Corpuscular Hgb Conc. 31.7 g/dL (32.0-36.0); Mean Corpuscular Volume 77.8 fL (80.0-100.0); Monocytes # (auto) 1.3 10 ^3/uL (0-1.3); Neutrophils # (auto) 10.6 10 ^3/uL (1.6-8.6); Neutrophils % (auto) 83.6 % (37.0-80.0); Red Blood Cells 3.23 10^6/uL (4.0-5.20); Red Cell Distribution Width 15.3 % (11.8-14.3); White Blood Cell 12.7 10^3/uL (4.4-10.8)
[2024-08-23 17:28] LABS: Platelet Count (auto) 782 10^3/uL (140-450)
[2024-08-23] MEDS: VANCOMYCIN 750mg/150ml 150 ML IV SCH (17:38)
[2024-08-24] VITALS (8 sets, daily range): BP systolic 119–150; BP diastolic 58–70; PULSE 99–120; RESP 16–18; TEMP 98.5–99; O2SAT 98–100
[2024-08-24 06:05] LABS: Hemoglobin 7.6 g/dL (12.2-16.2); Mean Corpuscular Hgb Conc. 32.1 g/dL (32.0-36.0); Mean Corpuscular Volume 76.5 fL (80.0-100.0); Monocytes # (auto) 1.2 10 ^3/uL (0-1.3)
[2024-08-24 06:09] LABS: Basophils # (auto) 0.1 10 ^3/uL (0-0.2); Basophils % (auto) 0.6 % (0.0-2.0); Eosinophils # (auto) 0.2 10 ^3/uL (0-0.8); Eosinophils % (auto) 1.9 % (0.0-7.0); Hematocrit 23.7 % (36.0-46.0); Lymphocytes # (auto) 0.5 10 ^3/uL (0.4-5.4); Lymphocytes % (auto) 4.5 % (10.0-50.0); Mean Corpuscular Hemoglobin 24.6 pg (28.0-32.0); Monocytes % (auto) 10.1 % (0.0-12.0); Neutrophils # (auto) 9.6 10 ^3/uL (1.6-8.6); Neutrophils % (auto) 82.9 % (37.0-80.0); Red Blood Cells 3.09 10^6/uL (4.0-5.20); Red Cell Distribution Width 15.2 % (11.8-14.3); White Blood Cell 11.6 10^3/uL (4.4-10.8)
[2024-08-24 06:14] LABS: Platelet Count (auto) 784 10^3/uL (140-450)
[2024-08-24 06:44] LABS: Giant Platelets Few; Large Platelets FEW; Platelet Estimate Markedly Increased
[2024-08-24] MEDS ORDERED: DEXTROSE (50%) 50ML SYRG IV PRN (07:00)
[2024-08-24] MEDS: InsuLIN REG 1unit/0.01ml Soln (100units/ml) SC SCH (07:00)
--- NOTE | 2024-08-24 09:09 | DVHPN2 ---
Progress Note - Dictate Date Seen: August 24, 2024 Medical Necessity Reason Pt with a Central, PICC or Fol: No Subjective No new acute complaints noted. vital signs Vital Sign Date Time Temp Pulse Resp B/P (MAP) Pulse Ox O2 Delivery O2 Flow Rate FiO2 08/24/24 08:00 16 Room Air* 0 21 08/24/24 05:00 98.7 104 140/61 (87) 98 98.7 Total Intake and Output 08/23/24 08/23/24 08/24/24 15:00 23:00 07:00 Intake Total 100 ml 575 ml 750 ml Output Total 700 ml 1050 ml Balance 100 ml -125 ml -300 ml medications Current Medications Medications Dose Ordered Sig/Linda Route Start Time Stop Time Status Last Admin Dose Admin Sodium Chloride 1,000 ml @ 120 mls/hr Q8H20M IV 08/21/24 18:00 08/24/24 04:49 120 MLS/HR Ondansetron HCl 4 mg Q4HP PRN IV 08/21/24 18:00 08/22/24 23:31 4 MG Docusate Sodium 100 mg BIDPRN PRN PO 08/21/24 18:00 Enoxaparin Sodium 40 mg DAILY SC 08/22/24 10:00 08/23/24 08:55 40 MG Acetaminophen 650 mg Q6HP PRN PO 08/21/24 18:00 Morphine Sulfate 2 mg Q4HPRN PRN IV 08/21/24 18:00 08/23/24 09:02 2 MG Nitroglycerin 0.4 mg Q5MINP PRN SL 08/21/24 18:00 Morphine Sulfate 2 mg Q30M PRN IV 08/21/24 18:00 Vancomycin HCl 0 ml @ 0 mls/hr UD IV 08/21/24 18:00 Piperacillin Sod/ Tazobactam Sod 100 ml @ 25 mls/hr Q6H IV 08/21/24 21:00 08/24/24 03:17 25 MLS/HR Acetaminophen/ Hydrocodone Bitart 1 tab Q4HP PRN PO 08/23/24 11:30 08/24/24 06:25 1 TAB Diagnostic Test (Pha) 1 strip ACHS 08/23/24 17:00 08/24/24 06:25 1 STRIP Vancomycin HCl 150 ml @ 150 mls/hr Q12H IV 08/23/24 17:00 08/23/24 17:38 150 MLS/HR Insulin Human Regular ACHS SC 08/24/24 07:00 Dextrose 50 ml UD PRN IV 08/24/24 07:00 objective General Appearance: Well developed, Well nourished, Normal Appearance Head Exam: Normal inspection Eye Exam: bilateral eye Normal inspection, bilateral eye PERRL, bilateral eye EOMI Ear Exam: bilateral ear Auricle normal Nasal Exam: Normal inspection Mouth: Normal Inspection Pulmonary/Respiratory: Normal inspection, Normal breath sounds, Chest non- tender, Lungs clear Cardiovascular/Chest: Normal inspection, Regular rate, Normal Rhythm Abdominal Exam: Normal bowel sounds, Soft Foot: s/p transmetatarsal amputation of both foot 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 continue IV Zosyn for now, monitor vancomycin trough and creatinine Continue wound care Follow OR cultures; prelim shows GNR, follow will dc IV Vancomycin for now Antibiotic Status: Vancomycin IV [Started on 08/21 - Ongoing] Zosyn IV [Started on 08/21 - Ongoing] Review of culture: 08/21, Blood culture preliminary showed no growth 08/22, MRSA Screening came back negative Review of Imagin/11, Foot x-ray showed Amputation of the distal half of the 1st and 2nd toes from the mid metatarsals. The visualized joint space is well maintained. The alignment is anatomical. There is no radiopaque foreign body. 08/21, Extremity venous study showed There is no evidence for DVT in either lower extremity. Right common femoral vein and right common femoral/ greater saphenous junction not able to be evaluated due to overlying bandage material in the right inguinal region. 08/21, Duplex Scan lower extremity artery showed Right proximal and mid superficial femoral arteries are occluded. Left mid and distal superficial femoral arteries are occluded. Discussed with Dr. Abernathy Prognosis guarded Thank you for consult. Plan discussed with: JARRETT Clemons MD August 24, 2024 09:09
--- NOTE | 2024-08-24 15:12 | DVHPN2 ---
Subjective OVERNIGHT EVENTS NOTED. 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 Medications Current Medications Medications Dose Ordered Sig/Linda Route Start Time Stop Time Status Last Admin Dose Admin Sodium Chloride 1,000 ml @ 120 mls/hr Q8H20M IV 08/21/24 18:00 08/24/24 04:49 120 MLS/HR Ondansetron HCl 4 mg Q4HP PRN IV 08/21/24 18:00 08/22/24 23:31 4 MG Docusate Sodium 100 mg BIDPRN PRN PO 08/21/24 18:00 Enoxaparin Sodium 40 mg DAILY SC 08/22/24 10:00 08/24/24 09:18 40 MG Acetaminophen 650 mg Q6HP PRN PO 08/21/24 18:00 Morphine Sulfate 2 mg Q4HPRN PRN IV 08/21/24 18:00 08/23/24 09:02 2 MG Nitroglycerin 0.4 mg Q5MINP PRN SL 08/21/24 18:00 Morphine Sulfate 2 mg Q30M PRN IV 08/21/24 18:00 Vancomycin HCl 0 ml @ 0 mls/hr UD IV 08/21/24 18:00 Piperacillin Sod/ Tazobactam Sod 100 ml @ 25 mls/hr Q6H IV 08/21/24 21:00 08/24/24 09:18 25 MLS/HR Acetaminophen/ Hydrocodone Bitart 1 tab Q4HP PRN PO 08/23/24 11:30 08/24/24 14:33 1 TAB Diagnostic Test (Pha) 1 strip ACHS 08/23/24 17:00 08/24/24 11:51 1 STRIP Vancomycin HCl 150 ml @ 150 mls/hr Q12H IV 08/23/24 17:00 08/23/24 17:38 150 MLS/HR Insulin Human Regular ACHS SC 08/24/24 07:00 08/24/24 12:07 3 UNITS Dextrose 50 ml UD PRN IV 08/24/24 07:00 Laboratory Results Laboratory Tests 08/22/24 05:41 08/24/24 05:27 Microbiology Microbiology Date/Time Source Procedure Growth Status 08/23/24 11:50 Foot Right Gram Stain - Final Resulted 08/23/24 11:50 Foot Right Wound Culture - Preliminary Resulted 08/21/24 16:41 Blood Blood Culture - Preliminary NO GROWTH AFTER 48 HOURS OF INCUBATION. Resulted Assessment/Plan Assessment/Plan 69-year-old female with a known history of diabetes mellitus type 2 currently diet controlled, hypertension, severe peripheral vascular disease status post previous bilateral foot surgery presented to the hospital with a foot wound maggots as able as right foot wound found to have 1. Bilateral foot wound status post transmetatarsal amputation of bilateral feet 2. Severe peripheral vascular disease 4. diabetes mellitus type 2 diet controlled -CONTINUE PAIN MEDS, IV ANTIBIOTICS FOLLOW UP VASCULAR SURGERY AND INFECTIOUS DISEASE RECOMMENDATIONS Plan discussed with: Patient My Orders Orders - YUNIER JON MD Procedure Category Date Status Time Vancomycin PHA 08/23/24 In Process 750mg/150ml 17:00 Vancomycin,Trough LAB 08/24/24 Logged 16:00 Vancomycin Per KEN 08/23/24 In Process Pharmacy Protoc 16:29 * Environment Coordinator CONS 08/24/24 Transmitted Consult Date of Service: August 24, 2024 Billing Provider: YUNIER JON MD Common Visit Codes: NOT BILLABLE YUNIER JON MD August 24, 2024 15:12
[2024-08-24] MEDS: VANCOMYCIN 1GM/200ML PM 200 ML IV SCH (20:52)
[2024-08-24] MEDS: ACETAMINOPHEN 325 MG TAB PO PRN (21:11)
[2024-08-25] VITALS (8 sets, daily range): BP systolic 126–166; BP diastolic 55–67; PULSE 98–115; RESP 16–18; TEMP 98.2–98.6; O2SAT 99–100
[2024-08-25 05:24] LABS: Basophils # (auto) 0.1 10 ^3/uL (0-0.2); Eosinophils # (auto) 0.3 10 ^3/uL (0-0.8); Hemoglobin 7.1 g/dL (12.2-16.2); Lymphocytes # (auto) 0.4 10 ^3/uL (0.4-5.4); Lymphocytes % (auto) 3.4 % (10.0-50.0); Mean Corpuscular Volume 76.3 fL (80.0-100.0)
[2024-08-25 05:27] LABS: Basophils % (auto) 0.4 % (0.0-2.0); Eosinophils % (auto) 2.7 % (0.0-7.0); Mean Corpuscular Hemoglobin 24.7 pg (28.0-32.0); Mean Corpuscular Hgb Conc. 32.4 g/dL (32.0-36.0); Monocytes # (auto) 1.1 10 ^3/uL (0-1.3); Monocytes % (auto) 8.4 % (0.0-12.0); Neutrophils # (auto) 10.8 10 ^3/uL (1.6-8.6); Neutrophils % (auto) 85.1 % (37.0-80.0); Platelet Count (auto) 681 10^3/uL (140-450); Red Blood Cells 2.89 10^6/uL (4.0-5.20); Red Cell Distribution Width 15.2 % (11.8-14.3); White Blood Cell 12.7 10^3/uL (4.4-10.8)
--- NOTE | 2024-08-25 13:00 | DVHPN2 ---
Progress Note - Dictate Date Seen: August 25, 2024 Medical Necessity Reason Pt with a Central, PICC or Fol: No Subjective No new acute complaints noted. vital signs Vital Sign Date Time Temp Pulse Resp B/P (MAP) Pulse Ox O2 Delivery O2 Flow Rate FiO2 08/25/24 09:00 98.6 100 18 128/57 (80) 100 98.6 08/25/24 08:00 Room Air* 0 21 Total Intake and Output 08/24/24 08/24/24 08/25/24 15:00 23:00 07:00 Intake Total 100 ml 636 ml 1000 ml Output Total 200 ml 700 ml Balance 100 ml 436 ml 300 ml medications Current Medications Medications Dose Ordered Sig/Linda Route Start Time Stop Time Status Last Admin Dose Admin Sodium Chloride 1,000 ml @ 120 mls/hr Q8H20M IV 08/21/24 18:00 08/24/24 20:52 120 MLS/HR Ondansetron HCl 4 mg Q4HP PRN IV 08/21/24 18:00 08/22/24 23:31 4 MG Docusate Sodium 100 mg BIDPRN PRN PO 08/21/24 18:00 Enoxaparin Sodium 40 mg DAILY SC 08/22/24 10:00 08/25/24 08:54 40 MG Acetaminophen 650 mg Q6HP PRN PO 08/21/24 18:00 08/24/24 21:11 650 MG Morphine Sulfate 2 mg Q4HPRN PRN IV 08/21/24 18:00 08/23/24 09:02 2 MG Nitroglycerin 0.4 mg Q5MINP PRN SL 08/21/24 18:00 Morphine Sulfate 2 mg Q30M PRN IV 08/21/24 18:00 Vancomycin HCl 0 ml @ 0 mls/hr UD IV 08/21/24 18:00 Piperacillin Sod/ Tazobactam Sod 100 ml @ 25 mls/hr Q6H IV 08/21/24 21:00 08/25/24 10:08 25 MLS/HR Acetaminophen/ Hydrocodone Bitart 1 tab Q4HP PRN PO 08/23/24 11:30 08/25/24 12:54 1 TAB Diagnostic Test (Pha) 1 strip ACHS 08/23/24 17:00 08/25/24 11:38 1 STRIP Insulin Human Regular ACHS SC 08/24/24 07:00 08/25/24 12:01 3 UNITS Dextrose 50 ml UD PRN IV 08/24/24 07:00 Vancomycin HCl 200 ml @ 200 mls/hr Q12H IV 08/24/24 20:00 08/25/24 08:53 200 MLS/HR objective General Appearance: Well developed, Well nourished, Normal Appearance Head Exam: Normal inspection Eye Exam: bilateral eye Normal inspection, bilateral eye PERRL, bilateral eye EOMI Ear Exam: bilateral ear Auricle normal Nasal Exam: Normal inspection Mouth: Normal Inspection Pulmonary/Respiratory: Normal inspection, Normal breath sounds, Chest non- tender, Lungs clear Cardiovascular/Chest: Normal inspection, Regular rate, Normal Rhythm Abdominal Exam: Normal bowel sounds, Soft Foot: s/p transmetatarsal amputation of both foot 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, Normal speech, PERRL Neuro/Mental St: Alert, Oriented laboratory and microbiology Laboratory Tests 08/25/24 05:05 08/22/24 05:41 Test 08/22/24 05:41 Range/Units Serum Glucose 167 H 74-106 mg/dL Assessment/Plan Patient is a 69-year-old female presents to the hospital with: Left foot wound infection with maggots s/p amputation at transmetatarsal area non healing wounds GNR infection in wound severe bilateral peripheral artery disease Right SFA stent occluded Diabetes mellitus Hypertension Recommendations: She is status post bilateral transmetatarsal amputation for vascular surgery due to severe peripheral vascular disease and nonhealing wounds. Continue IV Zosyn for now, off vancomycin Continue wound care Follow OR cultures; prelim shows GNR, follow arrange IV Cefepime 1g q 8 hours for 10 days, to complete 2 weeks course. her main concern is severe peripheral vascular disease midline ordered follow up with vascular as outpt 08/24, Vancomycin trough is 3.6 Creatinine is 0.55 Antibiotic Status: Vancomycin IV [Started on 08/21 - Ongoing] Zosyn IV [Started on 08/21 - Ongoing] Review of culture: 08/21, Blood culture preliminary showed no growth 08/22, MRSA Screening came back negative Review of Imagin/11, Foot x-ray showed Amputation of the distal half of the 1st and 2nd toes from the mid metatarsals. The visualized joint space is well maintained. The alignment is anatomical. There is no radiopaque foreign body. 08/21, Extremity venous study showed There is no evidence for DVT in either lower extremity. Right common femoral vein and right common femoral/ greater saphenous junction not able to be evaluated due to overlying bandage material in the right inguinal region. 08/21, Duplex Scan lower extremity artery showed Right proximal and mid superficial femoral arteries are occluded. Left mid and distal superficial femoral arteries are occluded. Discussed with Dr. Abernathy plan to send her to SNF Thank you for consult. Dietary Evaluation Review Comments: CCHO-60 diet with rachel BID for wound. Expected Outcomes/Goals: controlled DM, healed wound and gradual wt loss Plan discussed with: JARRETT Clemons MD August 25, 2024 13:00
--- NOTE | 2024-08-25 16:19 | DVHPN2 ---
Subjective OVERNIGHT EVENTS NOTED. Patient currently getting wound care by the wound care nurse. 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 NO MOTOR DEFICIT Medications Current Medications Medications Dose Ordered Sig/Linda Route Start Time Stop Time Status Last Admin Dose Admin Sodium Chloride 1,000 ml @ 120 mls/hr Q8H20M IV 08/21/24 18:00 08/25/24 13:40 120 MLS/HR Ondansetron HCl 4 mg Q4HP PRN IV 08/21/24 18:00 08/22/24 23:31 4 MG Docusate Sodium 100 mg BIDPRN PRN PO 08/21/24 18:00 Enoxaparin Sodium 40 mg DAILY SC 08/22/24 10:00 08/25/24 08:54 40 MG Acetaminophen 650 mg Q6HP PRN PO 08/21/24 18:00 08/24/24 21:11 650 MG Morphine Sulfate 2 mg Q4HPRN PRN IV 08/21/24 18:00 08/23/24 09:02 2 MG Nitroglycerin 0.4 mg Q5MINP PRN SL 08/21/24 18:00 Morphine Sulfate 2 mg Q30M PRN IV 08/21/24 18:00 Vancomycin HCl 0 ml @ 0 mls/hr UD IV 08/21/24 18:00 Piperacillin Sod/ Tazobactam Sod 100 ml @ 25 mls/hr Q6H IV 08/21/24 21:00 08/25/24 10:08 25 MLS/HR Acetaminophen/ Hydrocodone Bitart 1 tab Q4HP PRN PO 08/23/24 11:30 08/25/24 12:54 1 TAB Diagnostic Test (Pha) 1 strip ACHS 08/23/24 17:00 08/25/24 11:38 1 STRIP Insulin Human Regular ACHS SC 08/24/24 07:00 08/25/24 12:01 3 UNITS Dextrose 50 ml UD PRN IV 08/24/24 07:00 Vancomycin HCl 200 ml @ 200 mls/hr Q12H IV 08/24/24 20:00 08/25/24 08:53 200 MLS/HR Insulin Glargine 15 units HS SC 08/25/24 22:00 Laboratory Results Laboratory Tests 08/22/24 05:41 08/25/24 05:05 Microbiology Microbiology Date/Time Source Procedure Growth Status 08/23/24 11:50 Foot Right Gram Stain - Final Resulted 08/23/24 11:50 Foot Right Wound Culture - Preliminary Resulted 08/21/24 16:41 Blood Blood Culture - Preliminary NO GROWTH AFTER 72 HOURS OF INCUBATION. Resulted Assessment/Plan Assessment/Plan 69-year-old female with a known history of diabetes mellitus type 2 currently diet controlled, hypertension, severe peripheral vascular disease status post previous bilateral foot surgery presented to the hospital with a foot wound maggots as able as right foot wound found to have 1. Bilateral foot wound status post transmetatarsal amputation of bilateral feet 2. Severe peripheral vascular disease 4. diabetes mellitus type 2, resume low-dose of insulin Lantus. -CONTINUE PAIN MEDS, IV ANTIBIOTICS FOLLOW UP VASCULAR SURGERY AND INFECTIOUS DISEASE RECOMMENDATIONS -days nurses. Midline placement, arrange IV antibiotics. Plan discussed with: Patient My Orders Orders - YUNIER JON MD Procedure Category Date Status Time Transfer Orders XFER 08/24/24 Transmitted 16:51 Vancomycin 1gm/200ml PHA 08/24/24 In Process Pm 20:00 Vancomycin Per KEN 08/26/24 In Process Pharmacy Protoc 07:00 Vancomycin,Trough LAB 08/26/24 Verified 07:00 Insulin Lantus PHA 08/25/24 In Process (Glargine) (Lantus) 22:00 Discharge DISCHARGE 08/25/24 Transmitted 14:04 Date of Service: August 25, 2024 Billing Provider: YUNIER JON MD Common Visit Codes: NOT BILLABLE YUNIER JON MD August 25, 2024 16:19
[2024-08-25] MEDS: INSULIN LANTUS (GLARGINE) 1 /0.01ml (100units/ml) SC SCH (21:58)
[2024-08-25] MEDS ORDERED: INSULIN LANTUS (GLARGINE) 1 /0.01ml (100units/ml) SC SCH (22:00)
== END 2024-08-25 23:58 | DRG 240 ==
LOC: EDBD 15:01 → ER 15:01 → OVERFLOW 17:52 → TELE-EAST 21:29 → EAST 08-24 19:06
PROVIDERS: ADMIT Internal Medicine; ATTEND Internal Medicine
PROC: 0Y6N0Z6 Detachment at Left Foot, Complete 3rd Ray, Open Approach (ICD-10-PCS; 2024-08-22)
PROC: 0Y6N0Z7 Detachment at Left Foot, Complete 4th Ray, Open Approach (ICD-10-PCS; 2024-08-22)
PROC: 0Y6N0Z5 Detachment at Left Foot, Complete 2nd Ray, Open Approach (ICD-10-PCS; 2024-08-22)
PROC: 0Y6M0Z9 Detachment at Right Foot, Partial 1st Ray, Open Approach (ICD-10-PCS; principal; 2024-08-22 11:36)
PROC: 0Y6M0ZB Detachment at Right Foot, Partial 2nd Ray, Open Approach (ICD-10-PCS; 2024-08-22 11:36)
DX: E11.52 Type 2 diabetes mellitus with diabetic peripheral angiopathy with gangrene (principal); I70.263 Atherosclerosis of native arteries of extremities with gangrene, bilateral legs; I10 Essential (primary) hypertension; K21.9 Gastro-esophageal reflux disease without esophagitis; E78.5 Hyperlipidemia, unspecified; F17.200 Nicotine dependence, unspecified, uncomplicated; G89.29 Other chronic pain; L08.9 Local infection of the skin and subcutaneous tissue, unspecified; Z79.84 Long term (current) use of oral hypoglycemic drugs
CPT/HCPCS: 36415; 71045; 73620; 80048; 80053; 80202; 82565; 82962; 83605; 83880; 84484; 85025; 85610; 85730; 86850; 86900; 86901; 87040; 87077; 87081; 87186; 87205; 93005; 93925; 93970; 96365; 96375; 99291; G0378; J1815; J2405; J2543

== ENCOUNTER 2024-08-31 13:14 | Emergency (ER) | payer OTHER ==
[~2024-08-31] VITALS: Ht 172.7 cm; Wt 83.6 kg
[~2024-08-31 13:14] MED LIST changes: -INSU100I52 IJ; -INSU300I5 SC
--- NOTE | 2024-08-31 14:57 | ED.PDOC ---
History of Present Illness HPI Comments 69 [id number] Presents to the ED with the c/c of Abnormal Labs. Pt states that she was at [facility] about to eat lunch when her nurse tells her that "she needs a blood transfusion and needs to come to the hospital". Pt notes that she had all of her toes amputated a few weeks ago but cannot remember the exact date. PATIENT IS ON ASPIRIN AND PLAVIX. Pt is noted to have a left upper extremity pick line. PATIENT NEVER HAD ANY BLOOD TRANSFUSION IN THE PAST. DENIES ANY BLEEDING FROM ANYWHERE. Patient has a right foot wound back and bilateral feet wound dressings. Patient states she has been feeling weak the last few days. PMHx: HTN, Hyper lipidemia, DM SHx: Amputation of all 10 toes Medications: Aspirin, Lantus Vitals: TEMP: 98.2 Pulse: 108 RR 18 BP: 192/51 HPI: Poor Historian. REVIEW OF SYSTEMS: CONSTITUTIONAL: Denies acute: fever, diaphoresis, chills, HEAD: Denies acute: headache, photophobia Eyes: Denies acute: Double vision, vision loss, eye pain, eye discharge. EARS: Denies acute: tinnitus, hearing loss, ear discharge, ear pain, THROAT: Denies acute: sore throat, swelling, difficulty swallowing , pain with swallowing, change in voice. NECK: Denies acute: neck pain, neck swelling, stiff neck. HEART: Denies acute : chest pain, palpitations, LUNGS: Denies acute: SOB, wheezing, cough, hemoptysis ABDOMEN: Denies acute: abdominal pain, Nausea, Vomiting, diarrhea, melena , hematemesis, hematochezia SKIN: Denies acute: rash, redness, lesions, itchiness. EXTREMITIES: Denies acute: calf pain, numbness, tingling, weakness, denies pain in extremity. Denies acute: Low back pain. Neuro: Denies acute: focal neurological deficit, motor or sensory focal neurological deficit, tremors, seizure like activity, confusion, dizziness, change in mental status, loss of bowel or bladder function, cauda equina like symptoms. : Denies acute: dysuria, hematuria, flank pain, increase in urinary frequency. PSYCH: Denies acute: hallucination, suicidal ideation, homicidal ideation. FEMALE: Denies acute: abnormal vaginal bleeding, foul odor, unusual discharge. PHYSICAL EXAM: General: ----mild----acute distress, awake and alert. Appears anxious Head: normocephalic, atraumatic. Neck: supple, trachea is midline, no swelling. Throat: Normal phonation. Eyes:, no erythema, no purulent discharge, no proptosis, no icterus. Heart: regular rate, regular rhythm, no significant murmur appreciated. Lungs: no apparent respiratory distress, Able to speak in full sentences. No wheezing, no rhonchi, no crackles. No stridors Clear to auscultation bilaterally. Abdomen: non tender to palpation, non distended, soft, no guarding, no rebound, + bowel sounds. Neuro: Awake, Alert, oriented to name, self, situation, follows commands GCS=15. Speech is normal. Skin: no petechia, no purpura, no cyanosis, non-pale, not jaundice. Lower extremities: --2/4 bilateral - Pitting edema no deformity, no focal swelling, no calf TTP. Bilateral feet wound dressing in place with right foot wound VAC. Makes eye contact. moves all four extremities. Face: no apparent facial droop. ED COURSE: Chief Complaint: Abnormal LAB's Time Seen by MD: 14:48 Primary Care Provider: TAO Reviewed Notes: Nurses Notes, Allergies Allergies: Coded Allergies: NO KNOWN ALLERGIES (Unverified , 08/03/24) Home Meds Reported Medications Ondansetron HCl (Ondansetron) 4 Mg Tab, 4 MG PO DAILY, TAB 08/18/24 Nitroglycerin (NTROSTAT SUBLINGUAL) 0.4 Mg Sl, 0.4 MG SL PRN, TAB *MAY REPEAT EVERY 5 MINUTES X 3 TOTAL IF NO RELIEF, INITIATE ANALGESIC THERAPY. NOTIFY PHYSICIAN *Do not crush. 08/18/24 Magnesium Hydroxide (Milk of Magnesia 400 mg/5Ml) 1 [place], 1 SELMA PO PRN, ML 08/18/24 Melatonin (KP MELATONIN) 3 Mg Tab, 10 MG PO HS, TAB 08/18/24 Hydrocodone-Acetaminophen (Hydrocodone/Acetaminophen 10-325 mg) 1 Tab Tab, 1 TAB PO PRN, TAB 08/18/24 Bisacodyl (Dulcolax) 10 Mg Sup, 10 MG RE, SUPP 08/18/24 Docusate Sodium (Sb Docusate Sodium) 100 Mg Cap, 100 MG PO DAILY, CAP 08/18/24 Docusate Sodium (Colace) 100 Mg Cap, 100 MG PO DAILY, CAP 08/18/24 Atorvastatin Calcium (ATORVASTATIN CALCIUM) 40 Mg Tab, 40 MG PO DAILY, TAB 08/18/24 Acetaminophen (Acetaminophen) 160 Mg/5 Ml Monalisa, 325 MG PO DAILY, ML 08/18/24 Aspirin (Aspirin Low Dose) 81 Mg Chw, 81 MG PO DAILY, TAB.CHEW 08/18/24 Clopidogrel Bisulfate (CLOPIDOGREL) 75 Mg Tab, 1 TAB PO DAILY for 90 Days, #90 08/04/24 Discontinued Reported Medications Insulin Lispro (Insulin Lispro) 100 Unit/Ml Inj, 100 UNIT IJ DAILY@BREAKFAST, INJ 08/18/24 Insulin Glargine (Insulin Glargine Solostar) 300 Unit/Ml Inj, 50 UNIT SC QAM for 27 Days, #4.5 08/04/24 Information Source: Patient Mode of Arrival: EMS Past Medical History PAST MEDICAL HISTORY: DM, GERD, HTN DISPENSARY CLERK History: No Pertinent DISPENSARY CLERK History Family History Family History: Reviewed,noncontributory to illness, No family hx of Cancer, No family hx of DM, No family hx of Heart jocelyn, No family hx of HTN, No family hx ofKidney jocelyn, No family hx of Liver jocelyn, No family hx of Lung jocelyn, No family hx of Stroke Social History Smoker: Non-Smoker Alcohol: Denies ETOH Use Drugs: Denies Drug Use Lives In: [facility] Was a procedure done? Was a procedure done?: No Differential Dx Considerations may include: Includes but not limited to thyroid disease, encephalopathy, electrolyte abnormality, sepsis, infection, intracranial pathology, drug adverse effects, arrhythmia, kidney insufficiency, ACS, CVA, malignancy, anemia X-Ray, Labs, Meds, VS Vital Signs Date Time Temp Pulse Resp B/P (MAP) Pulse Ox O2 Delivery O2 Flow Rate FiO2 09/01/24 08:29 101 20 98 Room Air* 0 21 09/01/24 08:00 98.2 101 20 102/58 (73) 98 98.2 09/01/24 06:21 16 09/01/24 04:29 16 09/01/24 03:10 70 16 136/80 09/01/24 02:44 72 14 136/74 09/01/24 02:44 86 14 136/78 09/01/24 00:32 70 16 142/70 08/31/24 23:03 90 132/48 08/31/24 22:00 108 17 133/48 (76) 100 08/31/24 21:01 107 139/64 08/31/24 19:59 108 17 98 Room Air* 0 08/31/24 19:39 97.8 108 17 135/60 (85) 98 97.8 08/31/24 19:25 100 135/51 08/31/24 19:00 98.8 100 16 135/51 (79) 99 98.8 08/31/24 18:38 111 138/60 08/31/24 18:11 111 138/60 08/31/24 18:00 98.8 111 23 138/60 (86) 99 98.8 08/31/24 17:18 120 184/106 08/31/24 17:00 98.6 120 19 184/106 (132) 100 98.6 08/31/24 16:00 121 08/31/24 16:00 98.6 119 22 199/70 (113) 100 98.6 08/31/24 15:30 98.6 123 14 187/72 (110) 99 98.6 08/31/24 15:00 98.6 100 20 188/69 (108) 100 98.6 08/31/24 14:25 Room Air* 0 08/31/24 14:00 98.2 108 18 192/51 (98) 99 98.2 Lab Test 08/31/24 19:17 08/31/24 18:30 08/31/24 17:18 08/31/24 15:00 Range/Units Troponin I High Sensitivity 8 6 < 3 L </=34 ng/L POC Glucose 181 H 70-106 mg/dl D-Dimer, Quantitative 1.21 H 0.0-0.49 mg/L FEU White Blood Count 13.8 H 4.4-10.8 10^3/uL Red Blood Count 3.24 L 4.0-5.20 10^6/uL Hemoglobin 7.8 L 12.2-16.2 g/dL Hematocrit 24.4 #L 36.0-46.0 % Mean Corpuscular Volume 75.3 L 80.0-100.0 fL Mean Corpuscular Hemoglobin 24.0 L 28.0-32.0 pg Mean Corpuscular Hemoglobin Concent 31.9 L 32.0-36.0 g/dL Red Cell Distribution Width 15.9 H 11.8-14.3 % Platelet Count 849 *H 140-450 10^3/uL Mean Platelet Volume 6.9 6.9-10.8 fL Neutrophils (%) (Auto) 85.3 H 37.0-80.0 % Lymphocytes (%) (Auto) 5.5 L 10.0-50.0 % Monocytes (%) (Auto) 7.7 0.0-12.0 % Eosinophils (%) (Auto) 1.0 0.0-7.0 % Basophils (%) (Auto) 0.5 0.0-2.0 % Neutrophils # (Auto) 11.8 H 1.6-8.6 10 ^3/uL Lymphocytes # (Auto) 0.8 0.4-5.4 10 ^3/uL Monocytes # (Auto) 1.1 0-1.3 10 ^3/uL Eosinophils # (Auto) 0.1 0-0.8 10 ^3/uL Basophils # (Auto) 0.1 0-0.2 10 ^3/uL Nucleated Red Blood Cells 0.1 % Platelet Estimate Markedly increased Hypochromasia (manual) Slight Anisocytosis (manual) Slight Microcytosis Slight Sodium Level 139 136-145 mmol/L Potassium Level 3.0 L 3.5-5.1 mmol/L Chloride Level 102 98-107 mmol/L Carbon Dioxide Level 24 20-31 mmol/L Anion Gap 13 5-15 Blood Urea Nitrogen 8 L 9-23 mg/dL Creatinine 0.55 0.550-1.02 mg/dL Glomerular Filtration Rate Calc 99 >90 mL/min BUN/Creatinine Ratio 14.5 10.0-20.0 Serum Glucose 131 H 74-106 mg/dL Calcium Level 9.1 8.7-10.4 mg/dL Magnesium Level 1.8 1.6-2.6 mg/dL Total Bilirubin 0.3 0.2-1.0 mg/dL Aspartate Amino Transferase (AST) 22 13-40 U/L Alanine Aminotransferase (ALT) 15 7-40 U/L Alkaline Phosphatase 119 H 46-116 U/L Total Protein 8.2 5.7-8.2 g/dL Albumin 3.9 3.2-4.8 g/dL Current Medications Medications (Trade) Dose Ordered Sig/Linda Route Start Time Stop Time Status Last Admin Morphine Sulfate 4 mg Q4HP PRN IV 09/01/24 00:30 09/01/24 09:26 DC 09/01/24 02:44 Ondansetron HCl (Zofran) 4 mg Q4HP PRN IV 09/01/24 00:30 09/01/24 09:26 DC 09/01/24 00:36 PATIENT: SARITA GOODMAN ACCT: [id number] UNIT: [id number] : 1955 LOC: ER ROOM / BED: / AGE / SEX: 69 / F ADM STATUS: REG ER SERVICE 05 ORDERING PHYSICIAN: WANDA KRUSE DO PROCEDURE(s): BLDVT - BiLat Lower DVT REASON: tachy post op ORDER NUMBER(s): [id number], ACCESSION NUMBER(s): [id number] Bilateral lower extremity venous duplex Clinical History: tachy post op Comparison: US BILAT LOWER DVT on DOS: 08/21/24 Technique: Duplex Doppler evaluation of the deep venous systems of both lower extremities from the common femoral veins to the popliteal veins including color Doppler and spectral/pulsed waveform analysis was performed. Findings: RIGHT SIDE: The common femoral vein demonstrates appropriate compressibility and waveform variability. There is compressibility/patency of the great saphenous vein at the proximal thigh. The femoral vein demonstrates appropriate compressibility and waveform variability. The deep femoral vein demonstrates appropriate compressibility and waveform variability. The popliteal vein demonstrates appropriate compressibility and waveform variability. There is normal compressibility at the tibioperoneal trunk. LEFT SIDE: The common femoral vein demonstrates appropriate compressibility and waveform variability. There is compressibility/patency of the great saphenous vein at the proximal thigh. The femoral vein demonstrates appropriate compressibility and waveform variability. The deep femoral vein demonstrates appropriate compressibility and waveform variability. The popliteal vein demonstrates appropriate compressibility and waveform variability. There is normal compressibility at the tibioperoneal trunk. Impression: No evidence of right or left femoropopliteal venous thrombosis. ATED BY: DAYDAY VIEIRA MD DICTATED DATE/TIME: 08/31/242000 SIGNED BY: DAYDAY VIEIRA MD SIGNED DATE/TIME: 08/31/242000 PATIENT: IVANIA GOODMANT: [id number] UNIT: [id number] : 1955 LOC: ER ROOM / BED: / AGE / SEX: 69 / F ADM STATUS: REG ER SERVICE 16 ORDERING PHYSICIAN: WANDA KRUSE DO PROCEDURE(s): CXRP - CHEST PORTABLE REASON: tachy ORDER NUMBER(s): [id number], ACCESSION NUMBER(s): [id number] INDICATION: tachy TECHNIQUE: Frontal view of the chest. COMPARISON: XY CHEST PORTABLE on DOS: 08/21/24, XY CHEST XRAY 1 VIEW on DOS: 08/03/24 FINDINGS: Findings:. The heart and mediastinal contours are grossly unremarkable. There is no evidence of pleural disease. The lungs are clear. The bony structures of the chest are intact without fracture. IMPRESSION: 1. No evidence of acute disease. ATED BY: WINNIE KIRBY MD DICTATED DATE/TIME: 08/31/241636 SIGNED BY: WINNIE KIRBY MD SIGNED DATE/TIME: 08/31/24 [facility] [place] [address] Ph: [phone] DIAGNOSTIC IMAGING Diagnostic Imaging Report : [id number] Signed PATIENT: IVANIA GOODMANT: [id number] UNIT: [id number] : 1955 LOC: ER ROOM / BED: / AGE / SEX: 69 / F ADM STATUS: REG ER SERVICE 26 ORDERING PHYSICIAN: WANDA KRUSE DO PROCEDURE(s): CTACH - CT ANGIO CHEST CONTRAST REASON: tachy post op ORDER NUMBER(s): [id number], ACCESSION NUMBER(s): [id number] CTA Chest with intravenous contrast INDICATION: tachy post op COMPARISON: None TECHNIQUE: Multidetector spiral CTA of the chest was performed of the chest with intravenous contrast. PULMONARY ANGIOGRAPHY PROTOCOL was utilized using a bolus- tracking technique centered on the main pulmonary artery. Axial, coronal and sagittal multiplanar and MIP reformats were performed. Radiation Dose : 1. Chest: CTDI volume is 27 mGy. Dose-length product is 2117 mGy*cm The dose indicators for CT are the volume Computed Tomography (CT) Dose Index (CTDIvol) and the Dose Length Product (DLP), and are measured in units of mGy and mGy-cm, respectively. These indicators are not patient dose, but values generated from the CT scanner acquisition factors. The report includes radiation exposure data for exposures received during this examination. Findings: Pulmonary artery: No pulmonary embolism Lower neck: Normal thyroid. Lungs: No focal consolidation, pleural effusion or pneumothorax. Heart/Vascular Structures: Normal heart size. No pericardial effusion. Lymph Nodes: Prominent mediastinal lymph nodes are seen, for example a right paratracheal lymph node measuring up to 1.2 cm Pleura: No pleural effusion or significant pneumothorax. Musculoskeletal: No acute osseous abnormality. Soft tissues: Normal. Upper abdomen: Limited portions of the upper abdomen are unremarkable. IMPRESSION: 1. No pulmonary embolism. 2. No acute thoracic finding. 3. Mediastinal lymphadenopathy, nonspecific ATED BY: YADY ORTEGA MD DICTATED DATE/TIME: 08/31/242134 SIGNED BY: YADY ORTEGA MD SIGNED DATE/TIME: 08/31/242134 CC: Time of 1ST Reevaluation: 15:23 Reevaluation 1ST: Unchanged Time of 2ND Reevaluation: 20:30 (The case was discussed with the admitting team (HPI, physical exam, labs and diagnostic tests that were available at the time of disposition, ED course, treatment plan) on the phone. CTA angiogram of the chest is still pending. They stated that patient has baseline tachycardia. Patient is not on any beta-blockers. Patient has history of hypertension accord ing to the admitting team. REBEKA wu. We will wait for the CT report before we make a decision on admitting.) Time of 3RD Reevaluation: 22:23 (Patient's vital signs are all now normal. Patient is not tachycardic. Patient is not hypertensive. Patient is still denies any history of tachycardia or hypertension ever in the past. She says she has never been on any blood pressure medications before.) Patient Education/Counseling: Diagnosis, Treatment Family Education/Counseling: Other Comments Patient presented with the above HPI.--possible symptomatic anemia----workup was initiated. patient was found with the above mentioned diagnosis. the following medications were ordered: please refer to order lists of meds and tests obtained by myself Dr. Kruse. Patient ED course and VS have been stabilized. Patient has been reassessed in the ED and remained in a stable condition. Pertinent incidental findings were discussed with the patient and/or family. Patient/family voices understanding and is agreeable with plan. Patient has been observed in the ED adequate length of time to insure improvement/stability. Escalation of care considered: Consideration of escalation to observation or admission Patient does not meet criteria for blood transfusion. Patient was tachycardic and hypertensive. CT scan of the chest was obtained to rule out PE given her high-risk of recent surgery and presence of tachycardia. Patient required multiple IV boluses to control her blood pressure and heart rate. Case was discussed with the admitting team. They find no indication to admit the patient. Patient was DISCHARGED home in a stable condition. All the reports of any imaging studies that were ordered by myself were reviewed by myself. Departure 1 Departure Time of Disposition: 15:23 Impression: Primary Impression: Symptomatic anemia Additional Impressions: Hypertension Qualified Codes: I10 - Essential (primary) hypertension Tachycardia Hypokalemia Thrombocytosis Mediastinal lymphadenopathy Disposition: HOME / SELF CARE / HOMELESS Admit to: Tele Condition: Guarded Additional Instructions: Additional instructions: You MUST follow-up with your primary care/family doctor in 1 to 2 days. If you are unable to see your primary care/family doctor, please return to our emergency room for re-assessment and re-evaluation in 1 to 2 days. Return to the emergency room here in our facility or to the nearest ER [facility] if your symptoms change or worsen. CONSULTATIONS: you MUST Follow-up for consultation as soon as possible with: -Podiatry and cardiology in 1-2 days. Please call for appointment. You MUST call the consultants office yourself to make an appointment. You may need to arrange that through your insurance and/or your primary/family doctor. If you are unable to see the rehabilitation consultant in 1 to 2 days, you must return to our emergency room (or any other ER of your choice) for re-assessment and re- evaluation. Adequate fluid hydration. Repeat CBC in 48-72 hours. Take daily iron supplements. Below is a copy of your radiological report for follow up: [address] [address] Ph: [phone] DIAGNOSTIC IMAGING Diagnostic Imaging Report : [id number] Signed PATIENT: SARITA GOODMAN ACCT: [id number] UNIT: [id number] : 1955 LOC: ER ROOM / BED: / AGE / SEX: 69 / F ADM STATUS: REG ER SERVICE 26 ORDERING PHYSICIAN: WANDA KRUSE DO PROCEDURE(s): CTACH - CT ANGIO CHEST CONTRAST REASON: tachy post op ORDER NUMBER(s): [id number], ACCESSION NUMBER(s): [id number] CTA Chest with intravenous contrast INDICATION: tachy post op COMPARISON: None TECHNIQUE: Multidetector spiral CTA of the chest was performed of the chest with intravenous contrast. PULMONARY ANGIOGRAPHY PROTOCOL was utilized using a bolus- tracking technique centered on the main pulmonary artery. Axial, coronal and sagittal multiplanar and MIP reformats were performed. Radiation Dose : 1. Chest: CTDI volume is 27 mGy. Dose-length product is 2117 mGy*cm The dose indicators for CT are the volume Computed Tomography (CT) Dose Index (CTDIvol) and the Dose Length Product (DLP), and are measured in units of mGy and mGy-cm, respectively. These indicators are not patient dose, but values generated from the CT scanner acquisition factors. The report includes radiation exposure data for exposures received during this examination. Findings: Pulmonary artery: No pulmonary embolism Lower neck: Normal thyroid. Lungs: No focal consolidation, pleural effusion or pneumothorax. Heart/Vascular Structures: Normal heart size. No pericardial effusion. Lymph Nodes: Prominent mediastinal lymph nodes are seen, for example a right paratracheal lymph node measuring up to 1.2 cm Pleura: No pleural effusion or significant pneumothorax. Musculoskeletal: No acute osseous abnormality. Soft tissues: Normal. Upper abdomen: Limited portions of the upper abdomen are unremarkable. IMPRESSION: 1. No pulmonary embolism. 2. No acute thoracic finding. 3. Mediastinal lymphadenopathy, nonspecific ATED BY: YADY ORTEGA MD DICTATED DATE/TIME: 08/31/242134 SIGNED BY: YADY ORTEGA MD SIGNED DATE/TIME: 08/31/242134 CC: Discharged With: Self Critical Care Note Critical Care Time?: Yes (1 hr-critical care time only) I personally scribed for WANDA KRUSE J DO ([email or web address]) on 08/31/24 at 14:57. Electronically submitted by Keagan Tena ([email or web address]). I personally scribed for AIXAANSLEYE J DO ([email or web address]) on 08/31/24 at 14:58. Electronically submitted by Keagan Tena ([email or web address]). I personally scribed for AIXAANSLEYE J DO ([email or web address]) on 08/31/24 at 17:25. Electronically submitted by Keagan Tena ([email or web address]). I personally scribed for AIXAWANDA J DO ([email or web address]) on 08/31/24 at 19:10. Electronically submitted by Bull Meehan ([email or web address]). I personally scribed for AIXA,WANDA J DO ([email or web address]) on 08/31/24 at 20:50. Electronically submitted by Bull Meehan ([email or web address]). ANSLEY KRUSEE J DO August 31, 2024 14:57
[2024-08-31 15:22] LABS: Basophils # (auto) 0.1 10 ^3/uL (0-0.2); Eosinophils # (auto) 0.1 10 ^3/uL (0-0.8); Hemoglobin 7.8 g/dL (12.2-16.2); Lymphocytes # (auto) 0.8 10 ^3/uL (0.4-5.4); Monocytes # (auto) 1.1 10 ^3/uL (0-1.3)
[2024-08-31 15:23] LABS: Basophils % (auto) 0.5 % (0.0-2.0); Hematocrit 24.4 % (36.0-46.0); Lymphocytes % (auto) 5.5 % (10.0-50.0); Mean Corpuscular Hgb Conc. 31.9 g/dL (32.0-36.0); Mean Corpuscular Volume 75.3 fL (80.0-100.0); Monocytes % (auto) 7.7 % (0.0-12.0); Neutrophils # (auto) 11.8 10 ^3/uL (1.6-8.6); Neutrophils % (auto) 85.3 % (37.0-80.0); Nucleated Red Blood Cells % 0.1 %; Red Blood Cells 3.24 10^6/uL (4.0-5.20); Red Cell Distribution Width 15.9 % (11.8-14.3); White Blood Cell 13.8 10^3/uL (4.4-10.8)
[2024-08-31 15:36] LABS: Alanine Aminotransferase 15 U/L (7-40); Albumin 3.9 g/dL (3.2-4.8); Alkaline Phosphatase 119 U/L (46-116); Anion Gap 13 (5-15); Aspartate Aminotransferase 22 U/L (13-40); BUN/Creatinine Ratio 14.5 (10.0-20.0); Bilirubin, Total 0.3 mg/dL (0.2-1.0); Blood Urea Nitrogen 8 mg/dL (9-23); Calcium 9.1 mg/dL (8.7-10.4); Carbon Dioxide 24 mmol/L (20-31); Chloride 102 mmol/L (98-107); Glucose 131 mg/dL (74-106); Sodium 139 mmol/L (136-145); Total Protein 8.2 g/dL (5.7-8.2)
[2024-08-31 15:40] LABS: Platelet Count (auto) 849 10^3/uL (140-450)
[2024-08-31] MEDS: HYDROcodone-ACET 5/325MG TAB PO ONE (15:42)
[2024-08-31 16:27] LABS: Anisocytosis Slight; Hypochromia Slight; Platelet Estimate Markedly Increased
[2024-08-31] MEDS: POTASSIUM CHL 20 Meq TABLET PO ONE (16:33)
[2024-08-31] MEDS: SODIUM CHLORIDE 0.9% 500 ML IV ONE (16:33)
--- NOTE | 2024-08-31 16:40 | DVH ---
INDICATION: tachy TECHNIQUE: Frontal view of the chest. COMPARISON: XY CHEST PORTABLE on DOS: 08/21/24, XY CHEST XRAY 1 VIEW on DOS: 08/03/24 FINDINGS: Findings:. The heart and mediastinal contours are grossly unremarkable. There is no evidence of pleu ral disease. The lungs are clear. The bony structures of the chest are intact without fracture. IMPRESSION: 1. No evidence of acute disease.
[2024-08-31] MEDS: LABETALOL HCL 20 MG/4 ML VL IV ONE ×2 (17:18→18:38)
[2024-08-31 19:59] VITALS: PULSE 108; RESP 17; O2SAT 98
--- NOTE | 2024-08-31 20:03 | DVH ---
Bilateral lower extremity venous duplex Clinical History: tachy post op Comparison: US BILAT LOWER DVT on DOS: 08/21/24 Technique: Duplex Doppler evaluation of the deep venous systems of both lower extremities from the common femora l veins to the popliteal veins including color Doppler and spectral/pulsed waveform analysis was perf ormed. Findings: RIGHT SIDE: The common femoral vein demonstrates appropriate compressibility and waveform variability. There is compressibility/patency of the great saphenous vein at the proximal thigh. The femoral vein demonstrates appropriate compressibility and waveform variability. The deep femoral vein demonstrates appropriate compressibility and waveform variability. The popliteal vein demonstrates appropriate compressibility and waveform variability. There is normal compressibility at the tibioperoneal trunk. LEFT SIDE: The common femoral vein demonstrates appropriate compressibility and waveform variability. There is compressibility/patency of the great saphenous vein at the proximal thigh. The femoral vein demonstrates appropriate compressibility and waveform variability. The deep femoral vein demonstrates appropriate compressibility and waveform variability. The popliteal vein demonstrates appropriate compressibility and waveform variability. There is normal compressibility at the tibioperoneal trunk. Impression: No evidence of right or left femoropopliteal venous thrombosis.
[2024-08-31] MEDS: IOHEXOL 350 MG/ML 100ML IJ ONE (20:47)
[2024-08-31] MEDS: METOPROLOL TARTRATE 25 MG TAB PO ONE (21:01)
--- NOTE | 2024-08-31 21:38 | DVH ---
CTA Chest with intravenous contrast INDICATION: tachy post op COMPARISON: None TECHNIQUE: Multidetector spiral CTA of the chest was performed of the chest with intravenous contrast . PULMONARY ANGIOGRAPHY PROTOCOL was utilized using a bolus-tracking technique centered on the main p ulmonary artery. Axial, coronal and sagittal multiplanar and MIP reformats were performed. Radiation Dose : 1. Chest: CTDI volume is 27 mGy. Dose-length product is 2117 mGy*cm The dose indicators for CT are the volume Computed Tomography (CT) Dose Index (CTDIvol) and the Dose Length Product (DLP), and are measured in units of mGy and mGy-cm, respectively. These indicators are not patient dose, but values generated from the CT scanner acquisition factors. The report includes radiation exposure data for exposures received during this examination. Findings: Pulmonary artery: No pulmonary embolism Lower neck: Normal thyroid. Lungs: No focal consolidation, pleural effusion or pneumothorax. Heart/Vascular Structures: Normal heart size. No pericardial effusion. Lymph Nodes: Prominent mediastinal lymph nodes are seen, for example a right paratracheal lymph node measuring up to 1.2 cm Pleura: No pleural effusion or significant pneumothorax. Musculoskeletal: No acute osseous abnormality. Soft tissues: Normal. Upper abdomen: Limited portions of the upper abdomen are unremarkable. IMPRESSION: 1. No pulmonary embolism. 2. No acute thoracic finding. 3. Mediastinal lymphadenopathy, nonspecific
--- NOTE | 2024-08-31 22:48 | DVHINCON2 ---
ALBERTO SMITH [facility] 08/31/24 2248: Date of service: August 31, [address] Willis Reason for Consultation Medical Management History of Present Illness Mrs. Becka Mancera is a 69 [id number] with a history of hypertension, dM, GERD, PVD, recent transmetatarsal amputation of bilateral feet who presents with a chief complaint of Abnormal Labs. Pt states that she was at [facility] about to eat lunch when her nurse tells her that "she needs a blood transfusion and needs to come to the hospital". Pt notes that she had all of her toes amputated a few weeks ago but cannot remember the exact date. Pt is noted to have a left upper extremity pick line. PATIENT NEVER HAD ANY BLOOD TRANSFUSION IN THE PAST. DENIES ANY BLEEDING FROM ANYWHERE. Patient has a right foot wound back and bilateral feet wound dressings. Past Medical History DM HTN GERD PVD Past Surgical History recent transmetatarsal amputation of bilateral feet Family History: Patient reports no known family medical history. Allergies: Coded Allergies: NO KNOWN ALLERGIES (Unverified , 08/03/24) Home Meds Reported Medications Ondansetron HCl (Ondansetron) 4 Mg Tab, 4 MG PO DAILY, TAB 08/18/24 Nitroglycerin (NTROSTAT SUBLINGUAL) 0.4 Mg Sl, 0.4 MG SL PRN, TAB *MAY REPEAT EVERY 5 MINUTES X 3 TOTAL IF NO RELIEF, INITIATE ANALGESIC THERAPY. NOTIFY PHYSICIAN *Do not crush. 08/18/24 Magnesium Hydroxide (Milk of Magnesia 400 mg/5Ml) 1 Selma Selma, 1 SELMA PO PRN, ML 08/18/24 Melatonin ( MELATONIN) 3 Mg Tab, 10 MG PO HS, TAB 08/18/24 Hydrocodone-Acetaminophen (Hydrocodone/Acetaminophen 10-325 mg) 1 Tab Tab, 1 TAB PO PRN, TAB 08/18/24 Bisacodyl (Dulcolax) 10 Mg Sup, 10 MG RE, SUPP 08/18/24 Docusate Sodium (Sb Docusate Sodium) 100 Mg Cap, 100 MG PO DAILY, CAP 08/18/24 Docusate Sodium (Colace) 100 Mg Cap, 100 MG PO DAILY, CAP 08/18/24 Atorvastatin Calcium (ATORVASTATIN CALCIUM) 40 Mg Tab, 40 MG PO DAILY, TAB 08/18/24 Acetaminophen (Acetaminophen) 160 Mg/5 Ml Monalisa, 325 MG PO DAILY, ML 08/18/24 Aspirin (Aspirin Low Dose) 81 Mg Chw, 81 MG PO DAILY, TAB.CHEW 08/18/24 Clopidogrel Bisulfate (CLOPIDOGREL) 75 Mg Tab, 1 TAB PO DAILY for 90 Days, #90 08/04/24 Review of Systems REVIEW OF SYSTEMS: CONSTITUTIONAL: Denies acute: fever, diaphoresis, chills, HEAD: Denies acute: headache, photophobia Eyes: Denies acute: Double vision, vision loss, eye pain, eye discharge. EARS: Denies acute: tinnitus, hearing loss, ear discharge, ear pain, THROAT: Denies acute: sore throat, swelling, difficulty swallowing , pain with swallowing, change in voice. NECK: Denies acute: neck pain, neck swelling, stiff neck. HEART: Denies acute : chest pain, palpitations, LUNGS: Denies acute: SOB, wheezing, cough, hemoptysis ABDOMEN: Denies acute: abdominal pain, Nausea, Vomiting, diarrhea, melena , hematemesis, hematochezia SKIN: Denies acute: rash, redness, lesions, itchiness. EXTREMITIES: Denies acute: calf pain, numbness, tingling, weakness, denies pain in extremity. Denies acute: Low back pain. Neuro: Denies acute: focal neurological deficit, motor or sensory focal neurological deficit, tremors, seizure like activity, confusion, dizziness, change in mental status, loss of bowel or bladder function, cauda equina like symptoms. : Denies acute: dysuria, hematuria, flank pain, increase in urinary frequency. PSYCH: Denies acute: hallucination, suicidal ideation, homicidal ideation. FEMALE: Denies acute: abnormal vaginal bleeding, foul odor, unusual discharge. Vital Signs Vital Signs Date Time Temp Pulse Resp B/P (MAP) Pulse Ox O2 Delivery O2 Flow Rate FiO2 08/31/24 22:00 108 17 133/48 (76) 100 08/31/24 19:59 Room Air* 0 21 08/31/24 19:39 97.8 97.8 Physical Exam General: ----no acute distress, awake and alert. Head: normocephalic, atraumatic. Neck: supple, trachea is midline, no swelling. Throat: Normal phonation. Eyes:, no erythema, no purulent discharge, no proptosis, no icterus. Heart: regular rate, regular rhythm, no significant murmur appreciated. Lungs: no apparent respiratory distress, Able to speak in full sentences. No wheezing, no rhonchi, no crackles. No stridors Clear to auscultation bilaterally. Abdomen: non tender to palpation, non distended, soft, no guarding, no rebound, + bowel sounds. Neuro: Awake, Alert, oriented to name, self, situation, follows commands GCS=15. Speech is normal. Skin: no petechia, no purpura, no cyanosis, non-pale, not jaundice. bilateral feet dressings clean dry and intact. Lower extremities: --2/4 bilateral - Pitting edema no deformity, no focal swelling, no calf TTP. Bilateral feet wound dressing in place with right foot wound VAC. Makes eye contact. moves all four extremities. Face: no apparent facial droop. Labs/Diagnostic Data Labs Test 08/31/24 19:17 08/31/24 18:30 08/31/24 17:18 08/31/24 15:00 Range/Units Troponin I High Sensitivity 8 </=34 ng/L POC Glucose 181 H 70-106 mg/dl D-Dimer, Quantitative 1.21 H 0.0-0.49 mg/L FEU White Blood Count 13.8 H 4.4-10.8 10^3/uL Red Blood Count 3.24 L 4.0-5.20 10^6/uL Hemoglobin 7.8 L 12.2-16.2 g/dL Hematocrit 24.4 #L 36.0-46.0 % Mean Corpuscular Volume 75.3 L 80.0-100.0 fL Mean Corpuscular Hemoglobin 24.0 L 28.0-32.0 pg Mean Corpuscular Hemoglobin Concent 31.9 L 32.0-36.0 g/dL Red Cell Distribution Width 15.9 H 11.8-14.3 % Platelet Count 849 *H 140-450 10^3/uL Mean Platelet Volume 6.9 6.9-10.8 fL Neutrophils (%) (Auto) 85.3 H 37.0-80.0 % Lymphocytes (%) (Auto) 5.5 L 10.0-50.0 % Monocytes (%) (Auto) 7.7 0.0-12.0 % Eosinophils (%) (Auto) 1.0 0.0-7.0 % Basophils (%) (Auto) 0.5 0.0-2.0 % Neutrophils # (Auto) 11.8 H 1.6-8.6 10 ^3/uL Lymphocytes # (Auto) 0.8 0.4-5.4 10 ^3/uL Monocytes # (Auto) 1.1 0-1.3 10 ^3/uL Eosinophils # (Auto) 0.1 0-0.8 10 ^3/uL Basophils # (Auto) 0.1 0-0.2 10 ^3/uL Nucleated Red Blood Cells 0.1 % Platelet Estimate Markedly increased Hypochromasia (manual) Slight Anisocytosis (manual) Slight Microcytosis Slight Sodium Level 139 136-145 mmol/L Potassium Level 3.0 L 3.5-5.1 mmol/L Chloride Level 102 98-107 mmol/L Carbon Dioxide Level 24 20-31 mmol/L Anion Gap 13 5-15 Blood Urea Nitrogen 8 L 9-23 mg/dL Creatinine 0.55 0.550-1.02 mg/dL Glomerular Filtration Rate Calc 99 >90 mL/min BUN/Creatinine Ratio 14.5 10.0-20.0 Serum Glucose 131 H 74-106 mg/dL Calcium Level 9.1 8.7-10.4 mg/dL Magnesium Level 1.8 1.6-2.6 mg/dL Total Bilirubin 0.3 0.2-1.0 mg/dL Aspartate Amino Transferase (AST) 22 13-40 U/L Alanine Aminotransferase (ALT) 15 7-40 U/L Alkaline Phosphatase 119 H 46-116 U/L Total Protein 8.2 5.7-8.2 g/dL Albumin 3.9 3.2-4.8 g/dL Problems(with codes): (1) Anemia (2) Thrombocytosis Plan/Recommendation This is a 69 yo female with known history of DM, hypertension, GERD, PVD, recent bilateral feet x 10 toes amputation , presents from [facility] facility for a hemo globin of 7.8, Platelets 849 known, d dimer 1.21, Patient had bilateral lower extremity venous ultrasound that resulted negative for DVT. CTA chest with no Pulmonary embolism. Patient denies chest pain, headaches, palpitations, dizziness, blurry vision. Patient recent discharge from this facility was on 08/25 s/p Transmetatarsal amputation of bilateral feet. Patient then had a hemog lobin of 7.1 patient denies any bleeding. Patient reports she doesn't understand why she was sent to the ED in such a luciano. Patient denies any hypertension or taking any anti hypertensive medications. Patient reports her blood pressure is only elevated when she comes to this hospital. A dose of metoprolol 25 mg PO was administered in the ED. Recommendation discharge to [facility] follow up with PCP , monitoring of blood pressure. All above was discussed with supervising MD. Discussed all above with patient who verbalizes agreement and understanding of recommendations. 1. Anemia 2. Thrombocytosis 3. PVD 4. Hypertension 5. DM Plan discussed with: Patient, Other YUNIER JON MD 09/04/24 1705: Date of service: September 01, 2024 Family History: Patient reports no known family medical history. Allergies: Coded Allergies: NO KNOWN ALLERGIES (Unverified , 08/03/24) Home Meds Reported Medications Ondansetron HCl (Ondansetron) 4 Mg Tab, 4 MG PO DAILY, TAB 08/18/24 Nitroglycerin (NTROSTAT SUBLINGUAL) 0.4 Mg Sl, 0.4 MG SL PRN, TAB *MAY REPEAT EVERY 5 MINUTES X 3 TOTAL IF NO RELIEF, INITIATE ANALGESIC THERAPY. NOTIFY PHYSICIAN *Do not crush. 08/18/24 Magnesium Hydroxide (Milk of Magnesia 400 mg/5Ml) 1 Selma Selma, 1 SELMA PO PRN, ML 08/18/24 Melatonin ( MELATONIN) 3 Mg Tab, 10 MG PO HS, TAB 08/18/24 Hydrocodone-Acetaminophen (Hydrocodone/Acetaminophen 10-325 mg) 1 Tab Tab, 1 TAB PO PRN, TAB 08/18/24 Bisacodyl (Dulcolax) 10 Mg Sup, 10 MG RE, SUPP 08/18/24 Docusate Sodium (Sb Docusate Sodium) 100 Mg Cap, 100 MG PO DAILY, CAP 08/18/24 Docusate Sodium (Colace) 100 Mg Cap, 100 MG PO DAILY, CAP 08/18/24 Atorvastatin Calcium (ATORVASTATIN CALCIUM) 40 Mg Tab, 40 MG PO DAILY, TAB 08/18/24 Acetaminophen (Acetaminophen) 160 Mg/5 Ml Monalisa, 325 MG PO DAILY, ML 08/18/24 Aspirin (Aspirin Low Dose) 81 Mg Chw, 81 MG PO DAILY, TAB.CHEW 08/18/24 Clopidogrel Bisulfate (CLOPIDOGREL) 75 Mg Tab, 1 TAB PO DAILY for 90 Days, #90 08/04/24 Additional Comments Additional Comments Additional Comments I agree with the assessment and plan as outlined by my nurse practitioner. ALBERTO SMITH August 31, 2024 22:48 YUNIER JON MD September 04, 2024 17:05
[2024-09-01] MEDS ORDERED: HYDROcodone-ACET 5/325MG TAB PO PRN (00:30)
[2024-09-01] MEDS ORDERED: ONDANSETRON HCL 4 MG/2 ML VIAL IV PRN (00:30)
[2024-09-01] MEDS: MORPHINE SULFATE 4 MG/ML SYR/VIAL IV PRN (00:32)
[2024-09-01] MEDS: ONDANSETRON HCL 4 MG/2 ML VIAL IV PRN (00:36)
[2024-09-01 08:00] VITALS: BP 102/58; TEMP 98.2
[2024-09-01 08:29] VITALS: PULSE 101; RESP 20; O2SAT 98
== END 2024-09-01 08:27 | disposition home or self-care (01) ==
LOC: EDBD 13:14 → ER 13:16
DX: D64.9 Anemia, unspecified (principal); I10 Essential (primary) hypertension; R00.0 Tachycardia, unspecified; E87.6 Hypokalemia; D75.839 Thrombocytosis, unspecified; R59.1 Generalized enlarged lymph nodes; E11.9 Type 2 diabetes mellitus without complications; E78.5 Hyperlipidemia, unspecified; Z79.899 Other long term (current) drug therapy
CPT/HCPCS: 36415; 71045; 71275; 80053; 82947; 83735; 84484; 85025; 85379; 86850; 86900; 86901; 93970; 96374; 96375; 96376; 99291; J2270; J2405; Q9967; 82962; 86870; 86880; 86905; 86906

== ENCOUNTER 2024-10-15 12:07 | Emergency (ER) | payer OTHER ==
[~2024-10-15] VITALS: Ht 172.7 cm; Wt 83.0 kg
[2024-10-15 12:30] VITALS: PULSE 117; RESP 26; O2SAT 100
--- NOTE | 2024-10-15 12:54 | ED.PDOC ---
History of Present Illness(SKN HPI Comments This is a 69 year old female presenting to the ED with chief complaint of bilateral foot wounds. EMS reports patient recently had all her bilateral toes amputated on 08/21/24. EMS relays that the patient was staying in an acute care facility, however, patient relays that her blood sugar was not checked at all until she was discharged home. Patient states she has only had a home health nurse check her wounds once before today about a month ago. Patient notes that her bilateral foot amputation sites have been draining with associated 10/10 pain and inability to walk. EMS reports patient is currently on Clindamycin for her wounds. EMS relays that the patient's BG on scene was 509, heart rate in the 120s, and her temperature at 100.9F. Patient notes she ran out of LearnVest 5 days ago and has been dealing with the pain since. Patient denies any N/V, numbness, weakness, or chills. Chief Complaint: Wound Check Time Seen by MD: 12:28 Primary Care Provider: TAO History of Present Illness: Nurses Notes, Echocardiographer Notes, Medications, Allergies Allergies: Coded Allergies: NO KNOWN ALLERGIES (Unverified , 08/03/24) Home Meds Reported Medications Ondansetron HCl (Ondansetron) 4 Mg Tab, 4 MG PO DAILY, TAB 08/18/24 Nitroglycerin (NTROSTAT SUBLINGUAL) 0.4 Mg Sl, 0.4 MG SL PRN, TAB *MAY REPEAT EVERY 5 MINUTES X 3 TOTAL IF NO RELIEF, INITIATE ANALGESIC THERAPY. NOTIFY PHYSICIAN *Do not crush. 08/18/24 Magnesium Hydroxide (Milk of Magnesia 400 mg/5Ml) 1 [place], 1 SELMA PO PRN, ML 08/18/24 Melatonin (KP MELATONIN) 3 Mg Tab, 10 MG PO HS, TAB 08/18/24 Hydrocodone-Acetaminophen (Hydrocodone/Acetaminophen 10-325 mg) 1 Tab Tab, 1 TAB PO PRN, TAB 08/18/24 Bisacodyl (Dulcolax) 10 Mg Sup, 10 MG RE, SUPP 08/18/24 Docusate Sodium (Sb Docusate Sodium) 100 Mg Cap, 100 MG PO DAILY, CAP 08/18/24 Docusate Sodium (Colace) 100 Mg Cap, 100 MG PO DAILY, CAP 08/18/24 Atorvastatin Calcium (ATORVASTATIN CALCIUM) 40 Mg Tab, 40 MG PO DAILY, TAB 08/18/24 Acetaminophen (Acetaminophen) 160 Mg/5 Ml Monalisa, 325 MG PO DAILY, ML 08/18/24 Aspirin (Aspirin Low Dose) 81 Mg Chw, 81 MG PO DAILY, TAB.CHEW 08/18/24 Clopidogrel Bisulfate (CLOPIDOGREL) 75 Mg Tab, 1 TAB PO DAILY for 90 Days, #90 08/04/24 Information Source: Patient, Emergency Med Personnel Mode of Arrival: EMS Severity: Moderate Timing: Days Duration: Since onset Prehospital treatment: None Location: Foot Mechanism: Preceding Wound Past Medical History PAST MEDICAL HISTORY: DM, GERD, High Lipids, HTN Past Medical History (Other): Peripheral vascular disease Surgical History (Other): Bilateral toe amputations, Right hand finger amputations DIRECT SUPPORT PROFESSIONAL History: No Pertinent DIRECT SUPPORT PROFESSIONAL History Family History Family History: Reviewed,noncontributory to illness, No family hx of Cancer, No family hx of DM, No family hx of Heart jocelyn, No family hx of HTN, No family hx ofKidney jocelyn, No family hx of Liver jocelyn, No family hx of Lung jocelyn, No family hx of Stroke Social History Smoker: Non-Smoker Alcohol: Denies ETOH Use Drugs: Denies Drug Use Lives In: Home, Residential Constitutional: denies: chills, diaphoresis, fatigue, fever, malaise, sweats, weakness, others EENTM: denies: blurred vision, double vision, ear bleeding, ear discharge, ear drainage, ear pain, ear ringing, eye pain, eye redness, hearing loss, mouth pain, mouth swelling, nasal discharge, nose bleeding, nose congestion, nose chad n, photophobia, tearing, throat pain, throat swelling, voice changes, others Respiratory: denies: cough, hemoptysis, orthopnea, SOB at rest, shortness of breath, SOB with excertion, stridor, wheezing, others Cardiovascular: denies: chest pain, dizzy spells, diaphoresis, Dyspnea on exertion, edema, irregular heart beat, left arm pain, lightheadedness, palpitations, PND, syncope, others Gastrointestinal: denies: abdomen distended, abdominal pain, blood streaked bowels, constipated, diarrhea, dysphagia, difficulty swallowing, hematemesis, melena, nausea, poor appetite, poor fluid intake, rectal bleeding, rectal pain, vomiting, others Genitourinary: denies: abnormal vagina bleeding, burning, dyspareunia, dysuria, flank pain, frequency, hematuria, incontinence, pain, , vagina discharge, urgency, others Neurological: denies: dizziness, fainting, headache, left sided numbness, left sided weakness, numbness, paresthesia, pre-existing deficit, right sided numbness, right sided weakness, seizure, speech problems, tingling, tremors, weakness, others Musculoskeletal: denies: back pain, gout, joint pain, joint swelling, muscle pain, muscle stiffness, neck pain, others Integumetry: reports: wounds (Bilateral foot wounds); denies: bruises, change in color, change in hair/nails, dryness, laceration, lesions, lumps, rash, others Allergic/Immunocompromised: denies: Difficulty Healing, Frequent Infections, Hives, Itching, others Hematologic/Lymphatic: denies: anemia, blood clots, easy bleeding, easy bruising, swollen glands, others Endocrine: denies: excessive hunger, excessive sweating, excessive thirst, excessive urination, flushing, intolerance to cold, intolerance to heat, unexplained weight gain, unexplained weight loss, others Psychiatric: denies: anxiety, bipolar disorder, depression, hopeless, panic disorder, schizophrenia, sleepless, suicidal, others All Other Systems: Reviewed and Negative Physical Exam General Appearance: No Apparent Distress, Normal HEENT: Normal ENT Inspection, Pharynx Normal, TMs Normal Neck: Full Range of Motion, Non-Tender, Normal, Normal Inspection Respiratory: Chest Non-Tender, Lungs Clear, No Accessory Muscle Use, No Respiratory Distress, Normal Breath Sounds Cardiovascular: No Edema, No JVD, No Murmur, No Gallop, Normal Peripheral Pulses, Regular Rate/Rhythm Breast Exam: Deferred Gastrointestinal: No Organomegaly, Non Tender, No Pulsatile Mass, Normal Bowel Sounds, Soft Genitalia: Deferred Pelvic: Deferred Rectal: Deferred Extremities: No calf tenderness, Normal capillary refill, Normal inspection, Other (Linear fissure with pustulent material to the left foot post amputation. Right foot entire amputation surface necrotic, foul smelling, and with pus.) Musculoskeletal : Apperance: Normal Neurologic: Alert, manager financial II-XII nml as Tested, No Motor Deficits, Normal Affect, Normal Mood, No Sensory Deficits Cerebellar Function: Normal Reflexes: Normal Skin: Dry, Normal Color, Warm Lymphatic: No Adenopathy Was a procedure done? Was a procedure done?: No Differential Diagnosis (INTG) Differential Diagnosis: Cellulitis Differential Diagnosis: Gangrene, Osteomyelitis Abscess: Abscess, Bacteremia, Cellulitis, Gas Gangrene Differential Diagnosis: Cellulitis, Osteomyelitis X-Ray, Labs, Meds, VS Vital Signs Date Time Temp Pulse Resp B/P (MAP) Pulse Ox O2 Delivery O2 Flow Rate FiO2 10/15/24 13:50 99.4 117 18 153/63 (93) 99 99.4 10/15/24 12:56 127/55 10/15/24 12:50 118 10/15/24 12:30 98.6 117 26 127/55 (79) 100 98.6 10/15/24 12:30 117 26 100 Room Air* 0 21 10/15/24 12:16 100.9 117 22 148/61 (90) 96 100.9 Lab Test 10/15/24 13:08 Range/Units White Blood Count 30.3 *H 4.4-10.8 10^3/uL Red Blood Count 3.04 L 4.0-5.20 10^6/uL Hemoglobin 6.4 *L 12.2-16.2 g/dL Hematocrit 21.1 L 36.0-46.0 % Mean Corpuscular Volume 69.4 L 80.0-100.0 fL Mean Corpuscular Hemoglobin 21.1 L 28.0-32.0 pg Mean Corpuscular Hemoglobin Concent 30.4 L 32.0-36.0 g/dL Red Cell Distribution Width 16.7 H 11.8-14.3 % Platelet Count 456 H 140-450 10^3/uL Mean Platelet Volume 7.7 6.9-10.8 fL Neutrophils (%) (Auto) 37.0-80.0 % Lymphocytes (%) (Auto) 10.0-50.0 % Monocytes (%) (Auto) 0.0-12.0 % Basophils (%) (Auto) 0.0-2.0 % Neutrophils # (Auto) 1.6-8.6 10 ^3/uL Lymphocytes # (Auto) 0.4-5.4 10 ^3/uL Monocytes # (Auto) 0-1.3 10 ^3/uL Differential Total Cells Counted 100.0 100 Neutrophils % (Manual) 86 H 37.0-80.0 Band Neutrophils % (Manual) 7 Lymphocytes % (Manual) 3 L 10.0-50.0 Monocytes % (Manual) 4 0-12 Eosinophils % (Manual) 0 0-7 Basophils % (Manual) 0 0.0-2.0 Metamyelocytes % (manual) 0 Myelocytes % (Manual) 0 Promyelocytes % (Manual) 0 Blast Cells % (Manual) 0 Reactive Lymphocytes 0 Platelet Estimate Increased Hypochromasia (manual) Slight Microcytosis Slight Erythrocyte Sedimentation Rate 125 H 0-20 mm/hr Prothrombin Time 12.1 H 9.3-11.8 sec Prothrombin Time INR 1.16 H 0.9-1.15 Activated Partial Thromboplast Time 42.7 H 24.5-34.5 SEC Sodium Level 130 L 136-145 mmol/L Potassium Level 3.8 3.5-5.1 mmol/L Chloride Level 92 L 98-107 mmol/L Carbon Dioxide Level 26 20-31 mmol/L Anion Gap 12 5-15 Blood Urea Nitrogen 12 9-23 mg/dL Creatinine 0.76 0.550-1.02 mg/dL Glomerular Filtration Rate Calc 85 >90 mL/min BUN/Creatinine Ratio 15.8 10.0-20.0 Serum Glucose 415 *H 74-106 mg/dL Lactic Acid Level 1.6 0.4-2.0 mmol/L Calcium Level 9.4 8.7-10.4 mg/dL Total Bilirubin 0.3 0.2-1.0 mg/dL Aspartate Amino Transferase (AST) 44 H 13-40 U/L Alanine Aminotransferase (ALT) 20 7-40 U/L Alkaline Phosphatase 155 H 46-116 U/L Total Protein 7.4 5.7-8.2 g/dL Albumin 3.2 3.2-4.8 g/dL Current Medications Medications (Trade) Dose Ordered Sig/Linda Route Start Time Stop Time Status Last Admin Lactated Ringer's 1,900 ml @ 1,900 mls/hr ONCE ONCE IV 10/15/24 12:30 10/15/24 13:29 DC 10/15/24 13:00 Vancomycin HCl 200 ml @ 200 mls/hr ONCE ONCE IV 10/15/24 12:30 10/15/24 13:29 DC 10/15/24 13:14 Cefepime HCl 50 ml @ 12.5 mls/hr Q8HR IV 10/15/24 14:00 10/15/24 14:28 Fentanyl Citrate 12.5 mcg ONCE ONCE IV 10/15/24 12:30 10/15/24 12:31 DC 10/15/24 12:56 Right Foot XR: Findings/Impression: 2 views of the right. There is no evidence of an acute fracture, dislocation, blastic, or lytic lesions. Status post amputation of all 5 rays. Erosive versus postsurgical changes of the tarsal/ bases of the metatarsals. No radiopaque foreign bodies. Moderate soft tissue edema with subcutaneous emphysema along the foot and tracking along the distal lower extremity, suspicious for an infectious etiology. Correlate with contrast-enhanced MRI or nuclear medicine WBC scan for further evaluation. Left Foot XR: Impression: Postsurgical changes. Osteomyelitis can not be excluded as there are fragmentation changes seen of the 1st through 4th distal metatarsal at the level of the amputation sites. MRI recommended for further assessment. Chest XR: Findings/Impression: Frontal chest radiograph demonstrates no acute osseous or superficial soft t issue abnormalities. The trachea is midline. The cardiac silhouette and mediastinum are within normal limits. No pneumothorax, pleural effusions, or consolidations. Images Reviewed?: Images reviewed and evaluated by me Time of 1ST Reevaluation: 13:28 Reevaluation 1ST: Unchanged Consultation: Other (Dr Abernathy) Patient Education/Counseling: Diagnosis, Treatment, Prognosis, Need For Follow Up Family Education/Counseling: No Family Present Comments although pt is on home antibiotic, she is septic, has obviously infected ambupation stumps, with right >left. necrotizing fasciitis and osteomyelitis cannot be ruled out. i consulted Dr Myles and pt will be admitted to ICU Additional Information Reviewed patient's previous visit(s): 08/21/24 for left foot wound The following tests were ordered, and results were reviewed by me: CBC, CMP, Lactic Acid, ESR, Blood culture, PTPTT, Chest XR, Lt Foot XR, Rt Foot XR Additional information was gathered from interviewing the following independent historian: EMS I reviewed and agreed with the following test results read by other provider: Chest XR, Lt Foot XR, Rt Foot XR I discussed treatments and results with medical personnel and: Patient Comprehensive systems review obtained and negative except for what is stated in the HPI. SEPSIS Sepsis Screen Date sepsis recognized/suspect: Oct 15, 2024 Time Sepsis recognized/suspect: 1211 Recent Procedure: No On Antibiotic Therapy: Yes (CLINDAMYCIN) Respiratory Rate >20: Yes Heart Rate >90: Yes Temp<36 C (96.8 F) or >38.3 C: No SBP <90 or MAP <65 mmHG: No New Acute Mental Status Change: No Is the patient on CPAP, BIPAP,: No Physician Orders R Foot 2 View Xray (10/15/24 12:24) L Foot 2 View Xray (10/15/24 12:24) Urinalysis (10/15/24 12:24) Chest Portable (10/15/24 12:24) Accucheck (10/15/24 12:24) Blood Culture (10/15/24 12:24) Cefepime 1gm/ 50ml (Maxipime 1gm/50ml) (10/15/24 14:00) Notify Md If Map <65 Or Bp<90 (10/15/24 12:24) If Map<65 Start Vasopressor (10/15/24 12:24) Insert Midline (10/15/24 13:41) Type And Screen (10/15/24 14:38) Transfuse Blood (10/15/24 ) Accucheck (10/15/24 15:00) Accucheck (10/15/24 16:00) Accucheck (10/15/24 17:00) Accucheck (10/15/24 18:00) Accucheck (10/15/24 19:00) Accucheck (10/15/24 20:00) Accucheck (10/15/24 21:00) Accucheck (10/15/24 22:00) Accucheck (10/15/24 23:00) Vital Signs Date Time Temp Pulse Resp B/P (MAP) Pulse Ox O2 Delivery O2 Flow Rate FiO2 10/15/24 13:50 99.4 117 18 153/63 (93) 99 99.4 10/15/24 12:56 127/55 10/15/24 12:50 118 10/15/24 12:30 98.6 117 26 127/55 (79) 100 98.6 10/15/24 12:30 117 26 100 Room Air* 0 21 10/15/24 12:16 100.9 117 22 148/61 (90) 96 100.9 Laboratory Tests Test 10/15/24 13:08 Lactic Acid Level 1.6 mmol/L (0.4-2.0) White Blood Count 30.3 10^3/uL (4.4-10.8) *H Medications Medications Dose Ordered Sig/Linda Route Start Time Stop Time Status Last Admin Dose Admin Cefepime HCl 50 ml @ 12.5 mls/hr Q8HR IV 10/15/24 14:00 10/15/24 14:28 Fentanyl Citrate 12.5 mcg ONCE ONCE IV 10/15/24 12:30 10/15/24 12:31 DC 10/15/24 12:56 Lactated Ringer's 1,900 ml @ 1,900 mls/hr ONCE ONCE IV 10/15/24 12:30 10/15/24 13:29 DC 10/15/24 13:00 Vancomycin HCl 200 ml @ 200 mls/hr ONCE ONCE IV 10/15/24 12:30 10/15/24 13:29 DC 10/15/24 13:14 Reassessment Post Fluid SEPSIS FOCUS EXAM(REASSESSMENT Sepsis Exclusion Note: Patient presents with SIRS criteria, but the SIRS response is attributed to [ PT IS ON HOME PICC LINE ABXS], not a suspected infection. Sepsis bundle is not initiated at this time, due to this reason. Further management will focus on the treatment of the above condition (s).Sepsis reassessment focused exam completed. Date: 10/15/24 Time 12:57 Departure 1 Departure Time of Disposition: 14:40 Impression: Primary Impression: Diabetic infection of right foot Additional Impressions: Diabetic infection of left foot Anemia Qualified Codes: D64.9 - Anemia, unspecified Sepsis Qualified Codes: A41.9 - Sepsis, unspecified organism; R65.20 - Severe sepsis without septic shock Uncontrolled diabetes mellitus Qualified Codes: E10.65 - Type 1 diabetes mellitus with hyperglycemia Disposition: 09 ADMITTED INPATIENT Admit to: ICU Condition: Critical Discharged With: Self Critical Care Note Critical Care Time?: Yes (55 min-critical care time only) Critical care comment: due to concerns for patient's condition deteriorating, the care required my highest level of attention and readiness to intervene. i assessed the patient's condition, ordered the proper tests and treatments, reassessed for response and reviewed the results. i communicated with medical personnel and formulated a plan of care. total critical care time does not include any procedures Stability Stability form required: No Heart Score Heart Score: Heart Score Response (Comments) Value History N/A 0 EKG N/A 0 Age N/A 0 Risk Factors N/A 0 Troponin N/A 0 Total 0 I personally scribed for JOSEFINA CONNORS MD ([email or web address]) on 10/15/24 at 12:54. Electronically submitted by Renard Galarza ([email or web address]). I personally scribed for JOSEFINA CONNORS MD ([email or web address]) on 10/15/24 at 14:32. Electronically submitted by Renard Galarza ([email or web address]). JOSEFINA CONNORS MD Oct 15, 2024 12:54
[2024-10-15] MEDS: fentaNYL CITRATE 100 MCG/2 ML VL IV ONE ×2 (12:56→19:04)
[2024-10-15] MEDS: LACTATED RINGER'S 1,900 ML IV ONE (13:00)
--- NOTE | 2024-10-15 13:03 | DVH ---
EXAM: XY R FOOT 2 VIEW XRAY CLINICAL HISTORY: OSTEOMYELITIS COMPARISON: XY L FOOT 2 VIEW XRAY on DOS: 08/21/24, XY R FOOT 2 VIEW XRAY on DOS: 08/21/24, XY R FOOT 3 VIEW XRAY on DOS: 08/03/24 TECHNIQUE: XY R FOOT 2 VIEW XRAY Findings/Impression: 2 views of the right. There is no evidence of an acute fracture, dislocation, blastic, or lytic lesions. Status post amputation of all 5 rays. Erosive versus postsurgical changes of the tarsal/ bases of the metatarsals. No radiopaque foreign bodies. Moderate soft tissue edema with subcutaneous emphysema along the foot and tracking along the distal l ower extremity, suspicious for an infectious etiology. Correlate with contrast-enhanced MRI or nuclea r medicine WBC scan for further evaluation.
--- NOTE | 2024-10-15 13:08 | DVH ---
EXAM: XY CHEST PORTABLE TECHNIQUE: Single frontal chest radiograph CLINICAL HISTORY: SEPSIS COMPARISON: XY CHEST PORTABLE on DOS: 08/31/24, XY CHEST PORTABLE on DOS: 08/21/24, XY CHEST XRAY 1 VIE W on DOS: 08/03/24 Findings/Impression: Frontal chest radiograph demonstrates no acute osseous or superficial soft tissue abnormalities. The trachea is midline. The cardiac silhouette and mediastinum are within normal limits. No pneumothorax, pleural effusions, or consolidations.
[2024-10-15] MEDS: VANCOMYCIN 1GM/200ML PM 200 ML IV ONE (13:14)
--- NOTE | 2024-10-15 13:17 | DVH ---
CLINICAL INDICATION: OSTEOMYELITIS TECHNIQUE: 3-view left foot XY L FOOT 2 VIEW XRAY Comparison: XY L FOOT 2 VIEW XRAY on DOS: 08/21/24, XY R FOOT 2 VIEW XRAY on DOS: 08/21/24, XY R FOOT 3 VIEW XRAY on DOS: 08/03/24, XY L FOOT 3 VIEW XRAY on DOS: 08/03/24 FINDINGS/IMPRESSION: : There is marked soft tissue swelling. Patient is status post amputation of the 1st through 5th metatarsals. There are small bony fragments adjacent to the distal amputation sites of the 1st through 4th metatarsals. Osteomyelitis can not be excluded and MRI imaging recommended for further assessment. Impression: Postsurgical changes. Osteomyelitis can not be excluded as there are fragmentation changes seen of th e 1st through 4th distal metatarsal at the level of the amputation sites. MRI recommended for further assessment.
[2024-10-15 13:39] LABS: Hematocrit 21.1 % (36.0-46.0); Mean Corpuscular Hemoglobin 21.1 pg (28.0-32.0); Mean Corpuscular Volume 69.4 fL (80.0-100.0)
[2024-10-15 13:52] LABS: INR 1.16 (0.9-1.15); Partial Thromboplastin Time 42.7 SEC (24.5-34.5); Prothrombin Time 12.1 sec (9.3-11.8)
[2024-10-15 13:55] LABS: Alanine Aminotransferase 20 U/L (7-40); Anion Gap 12 (5-15); BUN/Creatinine Ratio 15.8 (10.0-20.0); Blood Urea Nitrogen 12 mg/dL (9-23); Calcium 9.4 mg/dL (8.7-10.4); Carbon Dioxide 26 mmol/L (20-31); Potassium 3.8 mmol/L (3.5-5.1); Total Protein 7.4 g/dL (5.7-8.2)
[2024-10-15 13:56] LABS: Albumin 3.2 g/dL (3.2-4.8); Bilirubin, Total 0.3 mg/dL (0.2-1.0)
[2024-10-15 14:02] LABS: Hemoglobin 6.4 g/dL (12.2-16.2)
[2024-10-15 14:07] LABS: Alkaline Phosphatase 155 U/L (46-116); Chloride 92 mmol/L (98-107); Sodium 130 mmol/L (136-145)
[2024-10-15 14:10] LABS: Glucose 415 mg/dL (74-106)
[2024-10-15] MEDS: CEFEPIME 1GM/ 50ML 50 ML IV SCH (14:28)
[2024-10-15 14:42] LABS: Total Cells Counted 100.0 (100)
[2024-10-15] MEDS: InsuLIN REG 1unit/0.01ml Soln (100units/ml) IV ONE (15:57)
[2024-10-15] MEDS: CLINDAMYCIN 900MG IV 50 ML IV ONE (18:55)
[2024-10-15] MEDS: HYDROcodone-ACET 10/325MG TAB PO ONE (19:41)
[2024-10-15 19:43] VITALS: BP 146/125; PULSE 118; RESP 24; TEMP 100.3; O2SAT 99
--- NOTE | 2024-10-16 16:50 | DVHINCON2 ---
Date Seen: Oct 15, 2024 Referring Physician ER physician. Reason for Consultation Bilateral foot wounds with a recent history of bilateral transmetatarsal foot amputation no presented to the hospital with a worsening wound found to have possibly osteomyelitis as well as suspected necrotizing fasciitis in the right foot and right lower extremity because of subcutaneous emphysema. History of Present Illness 69-year-old female with a known history of diabetes mellitus type 2, hypertension, dyslipidemia, peripheral vascular disease, previous history of bilateral transmetatarsal foot amputation presented to the hospital with a bilateral foot pain found to have possible osteomyelitis as well as necrotizing fasciitis of the right lower extremity as well as right foot. Podiatry Services was paged but instead of multiple pages to the pediatric surgeon nobody answered. Eventually patient was recommended to be higher level of care as she has a possibly right foot and right lower extremity necrotizing fasciitis. Patient's agrees to current plan of care. Past Medical History Diabetes mellitus type 2 Hypertension Dyslipidemia Peripheral vascular disease Past Surgical History Bilateral transmetatarsal foot amputation. Family History: Patient reports no known family medical history. Allergies: Coded Allergies: NO KNOWN ALLERGIES (Unverified , 08/03/24) Home Meds Reported Medications Ondansetron HCl (Ondansetron) 4 Mg Tab, 4 MG PO DAILY, TAB 08/18/24 Nitroglycerin (NTROSTAT SUBLINGUAL) 0.4 Mg Sl, 0.4 MG SL PRN, TAB *MAY REPEAT EVERY 5 MINUTES X 3 TOTAL IF NO RELIEF, INITIATE ANALGESIC THERAPY. NOTIFY PHYSICIAN *Do not crush. 08/18/24 Magnesium Hydroxide (Milk of Magnesia 400 mg/5Ml) 1 Carmen Carmen, 1 CARMEN PO PRN, ML 08/18/24 Melatonin (KP MELATONIN) 3 Mg Tab, 10 MG PO HS, TAB 08/18/24 Hydrocodone-Acetaminophen (Hydrocodone/Acetaminophen 10-325 mg) 1 Tab Tab, 1 TAB PO PRN, TAB 08/18/24 Bisacodyl (Dulcolax) 10 Mg Sup, 10 MG RE, SUPP 08/18/24 Docusate Sodium (Sb Docusate Sodium) 100 Mg Cap, 100 MG PO DAILY, CAP 08/18/24 Docusate Sodium (Colace) 100 Mg Cap, 100 MG PO DAILY, CAP 08/18/24 Atorvastatin Calcium (ATORVASTATIN CALCIUM) 40 Mg Tab, 40 MG PO DAILY, TAB 08/18/24 Acetaminophen (Acetaminophen) 160 Mg/5 Ml Monalisa, 325 MG PO DAILY, ML 08/18/24 Aspirin (Aspirin Low Dose) 81 Mg Chw, 81 MG PO DAILY, TAB.CHEW 08/18/24 Clopidogrel Bisulfate (CLOPIDOGREL) 75 Mg Tab, 1 TAB PO DAILY for 90 Days, #90 08/04/24 Review of Systems Twelve review of system are negative besides mentioned above. 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 Labs/Diagnostic Data Labs Test 10/15/24 13:08 Range/Units White Blood Count 30.3 *H 4.4-10.8 10^3/uL Red Blood Count 3.04 L 4.0-5.20 10^6/uL Hemoglobin 6.4 *L 12.2-16.2 g/dL Hematocrit 21.1 L 36.0-46.0 % Mean Corpuscular Volume 69.4 L 80.0-100.0 fL Mean Corpuscular Hemoglobin 21.1 L 28.0-32.0 pg Mean Corpuscular Hemoglobin Concent 30.4 L 32.0-36.0 g/dL Red Cell Distribution Width 16.7 H 11.8-14.3 % Platelet Count 456 H 140-450 10^3/uL Mean Platelet Volume 7.7 6.9-10.8 fL Neutrophils (%) (Auto) 37.0-80.0 % Lymphocytes (%) (Auto) 10.0-50.0 % Monocytes (%) (Auto) 0.0-12.0 % Basophils (%) (Auto) 0.0-2.0 % Neutrophils # (Auto) 1.6-8.6 10 ^3/uL Lymphocytes # (Auto) 0.4-5.4 10 ^3/uL Monocytes # (Auto) 0-1.3 10 ^3/uL Differential Total Cells Counted 100.0 100 Neutrophils % (Manual) 86 H 37.0-80.0 Band Neutrophils % (Manual) 7 Lymphocytes % (Manual) 3 L 10.0-50.0 Monocytes % (Manual) 4 0-12 Eosinophils % (Manual) 0 0-7 Basophils % (Manual) 0 0.0-2.0 Metamyelocytes % (manual) 0 Myelocytes % (Manual) 0 Promyelocytes % (Manual) 0 Blast Cells % (Manual) 0 Reactive Lymphocytes 0 Platelet Estimate Increased Hypochromasia (manual) Slight Microcytosis Slight Erythrocyte Sedimentation Rate 125 H 0-20 mm/hr Prothrombin Time 12.1 H 9.3-11.8 sec Prothrombin Time INR 1.16 H 0.9-1.15 Activated Partial Thromboplast Time 42.7 H 24.5-34.5 SEC Sodium Level 130 L 136-145 mmol/L Potassium Level 3.8 3.5-5.1 mmol/L Chloride Level 92 L 98-107 mmol/L Carbon Dioxide Level 26 20-31 mmol/L Anion Gap 12 5-15 Blood Urea Nitrogen 12 9-23 mg/dL Creatinine 0.76 0.550-1.02 mg/dL Glomerular Filtration Rate Calc 85 >90 mL/min BUN/Creatinine Ratio 15.8 10.0-20.0 Serum Glucose 415 *H 74-106 mg/dL Lactic Acid Level 1.6 0.4-2.0 mmol/L Calcium Level 9.4 8.7-10.4 mg/dL Total Bilirubin 0.3 0.2-1.0 mg/dL Aspartate Amino Transferase (AST) 44 H 13-40 U/L Alanine Aminotransferase (ALT) 20 7-40 U/L Alkaline Phosphatase 155 H 46-116 U/L Total Protein 7.4 5.7-8.2 g/dL Albumin 3.2 3.2-4.8 g/dL Microbiology Date/Time Source Procedure Growth Status 10/15/24 13:14 Blood Blood Culture - Preliminary NO GROWTH AFTER 24 HOURS OF INCUBATION. Resulted Assessment 69-year-old female with a known history of diabetes mellitus type 2, hypertension, dyslipidemia, peripheral vascular disease, previous history of bilateral transmetatarsal foot amputation presented to the hospital with bilateral foot pain found to have 1. Acute on chronic osteomyelitis of the bilateral foot with a suspected necrotizing fasciitis of the right foot and right lower extremity 2. Leukocytosis rule out sepsis 3. Bilateral foot osteomyelitis acute on chronic. 4. Peripheral vascular disease 5. Anemia without any active evidence of bleeding 6. Diabetes mellitus type 2 7. Hypertension 8. Previous history of bilateral transmetatarsal foot amputation no acute on chronic osteomyelitis of the bilateral foot with a suspected necrotizing fasciitis of the right foot and right lower extremity. -podiatry services are not available. Patient's has a worsening sepsis secondary to bilateral acute on chronic osteomyelitis of the foot as well as suspected necrotizing fasciitis of the right foot and right lower extremity because of subcutaneous emphysema. -patient needed emergent surgical intervention by Podiatry Services. Because of non with a battery of the Podiatry patient is being transferred to higher level of care. Patient is currently understand verbalized understanding and agreeable to plan. Dr. Espinosa ER physician has been notified. Problems(with codes): (1) PAD (peripheral artery disease) (2) Wound infection (3) Sepsis (4) Diabetic infection of left foot (5) Diabetic infection of right foot Plan discussed with: Patient, Other (ER physician Dr. Espinosa.) Date of Service: Oct 15, 2024 Billing Provider: YUNIER JON MD Common Visit Codes: NOT BILLABLE YUNIER JON MD Oct 16, 2024 16:50
== END 2024-10-15 18:17 | disposition short-term general hospital (02) ==
LOC: ER 12:07 → EDBD 12:07 → ER 18:17
DX: A41.9 Sepsis, unspecified organism (principal); D64.9 Anemia, unspecified; E11.621 Type 2 diabetes mellitus with foot ulcer; E11.65 Type 2 diabetes mellitus with hyperglycemia; I10 Essential (primary) hypertension; Z79.899 Other long term (current) drug therapy
CPT/HCPCS: 36415; 71045; 73620; 80053; 83605; 85007; 85027; 85610; 85652; 85730; 86850; 86900; 86901; 87040; 96361; 96365; 96366; 96367; 96375; 99291; J0692; J1815; J3010; J3370; J3490